=== PATIENT | male | born 1970 | race African-American/Black ===

== ENCOUNTER 2018-07-18 11:33 | Inpatient (IN) | payer OTHER ==
[~2018-07-18] VITALS: Ht 180.3 cm; Wt 78.0 kg
[2018-07-18] VITALS (14 sets, daily range): BP systolic 107–140
--- NOTE | 2018-07-18 11:33 | NUR ---
Placed in room 01 . Placed on quality assurance monitor final, blood pressure machine and pulse oximeter. To gown for exam. Side rails up.
--- NOTE | 2018-07-18 11:33 | NUR ---
BIB SQ 62 unable to obtain complete history due to SOB limited infomation obtained. Removed from cold wet clothes and warm blanket and gown provided. MD at bedside. Pt denies medical history but arrived with bag of medication. Will updated med rec and obtain complete history when patient improves or family arrives.
--- NOTE | 2018-07-18 11:34 | NUR ---
MAIK Cerna at bedside examining patient.
--- NOTE | 2018-07-18 11:38 | NUR ---
PT AAOx4 BIB ALS c/o acute onset SOB prior to arrival. Breathing tx given en route with no relief. RR 28, HR 130. Hx of lung ca. Pt c/o "feeling cold" on legs, denies numbness/tingling. Wet clothes removed, and warm blankets provided. No other injuries/complaints per pt/noted. Will continue to monitor.
[2018-07-18] MEDS ORDERED: IPRATROPIUM/ALBUTEROL SULFATE 3 ML AMPUL.NEB (DUONEB) INH ONE (11:45)
[2018-07-18] MEDS ORDERED: methylPREDNISolone SOD SUCC/PF 62.5 MG/ML VIAL IVP ONE (11:45)
[2018-07-18] MEDS ORDERED: NACL 0.9% 1,000 ML IV ONE (11:45)
--- NOTE | 2018-07-18 11:49 | NUR ---
Dr. Cerna reevaluating pt c/o right sided CP 10/11 order for Morphine obtained
--- NOTE | 2018-07-18 11:54 | NUR ---
Radiology at bedside for CXR
[2018-07-18] MEDS ORDERED: MORPHINE 4 MG/ML INJ. SYRINGE IVP ONE ×2 (12:00→12:30)
[2018-07-18 12:03] LABS: MEAN CORPUSCULAR HEMOGLOBIN 25 pg (27-31); MEAN CORPUSCULAR HGB CONC 32 % (32-36); MONOCYTES # (AUTO) 1.4 K/uL (0.0-1.0)
--- NOTE | 2018-07-18 12:04 | NUR ---
Morphine 4mg IVP administered. Pt tolerated well. No adverse reactions noted.
[2018-07-18 12:09] LABS: HEMOGLOBIN 12.3 g/dL (14.0-18.0); RED BLOOD CELL COUNT(AUTO) 4.92 MIL/uL (4.2-6.2); WHITE BLOOD COUNT (AUTO) 19.8 K/uL (4.8-10.8)
[2018-07-18 12:10] LABS: HEMATOCRIT 38.4 % (36-54); LYMPHOCYTES % (AUTO) 19.5 % (20.5-51.5); MEAN CORPUSCULAR VOLUME 78 fL (79.0-98.0); NEUTROPHILS % (AUTO) 70.8 % (40.0-70.0); PLATELET COUNT (AUTO) 359 K/uL (130-430); RED CELL DISTRIBUTION WIDTH 16.3 % (9.0-15.0)
--- NOTE | 2018-07-18 12:10 | NUR ---
PT PLACED ON BIPAP PER DR. RIBERA AT THIS TIME VIA SETTING IPAP 10, EPAP 5, BUR14, 50%FIO2. FOLLOW BY ABG IN 30MIN.
[2018-07-18 12:11] LABS: BASOPHILS # (AUTO) 0.1 K/uL (0.0-0.2); BASOPHILS % (AUTO) 0.6 % (0.0-2.0); EOSINOPHILS # (AUTO) 0.4 K/uL (0.0-0.4); EOSINOPHILS % (AUTO) 1.8 % (0.0-4.0); LYMPHOCYTES # (AUTO) 3.9 K/uL (1.0-5.5); MONOCYTES % (AUTO) 7.3 % (1.7-9.3); NEUTROPHILS # (AUTO) 14.1 K/uL (1.8-7.7)
--- NOTE | 2018-07-18 12:14 | NUR ---
Respiratory at bedside placing pt on BiPAP.
[2018-07-18] MEDS ORDERED: FERR140T2 PO (12:15)
[2018-07-18] MEDS ORDERED: PHEDM120 PO (12:15)
[2018-07-18] MEDS ORDERED: MORP15TA60 PO (12:15)
[2018-07-18] MEDS ORDERED: BECL10.62 IH (12:15)
[2018-07-18] MEDS ORDERED: FLUT16SP16 NS (12:15)
[2018-07-18] MEDS ORDERED: ALBMDI INH (12:15)
[2018-07-18] MEDS ORDERED: HYDR-3110 PO (12:15)
[2018-07-18] MEDS ORDERED: LOSA50TA3 PO (12:15)
[2018-07-18] MEDS ORDERED: PRED20TA PO (12:15)
[2018-07-18] MEDS ORDERED: ONDA4TAB5 PO (12:15)
[2018-07-18] MEDS ORDERED: IBUP-1971 PO (12:15)
[2018-07-18] MEDS ORDERED: MULT-1117 PO (12:15)
[2018-07-18] MEDS ORDERED: DOCU-144 PO (12:15)
[2018-07-18] MEDS ORDERED: MONT10TA25 PO (12:15)
[2018-07-18] MEDS ORDERED: BENZ-16 PO (12:15)
[2018-07-18] MEDS ORDERED: AUG875 PO (12:15)
--- NOTE | 2018-07-18 12:15 | NUR ---
Pt reports he is full code. Medication reconciliation completed with information provided by pt. Any prior medication reconciliation on file was reviewed and corrected.
--- NOTE | 2018-07-18 12:15 | NUR ---
Medication reconciliation completed with information provided by medication brought in by medics. Any prior medication reconciliation on file was reviewed and corrected.
--- NOTE | 2018-07-18 12:22 | NUR ---
Care endorsed to Zaida GREENBERG
[2018-07-18 12:26] LABS: CALCIUM 9.1 mg/dL (8.4-11.0); CREATININE 1.33 mg/dL (0.55-1.30); POTASSIUM 4.5 mmol/L (3.5-5.1)
[2018-07-18] MEDS ORDERED: PIPERACILLIN/TAZO 3.375 GM in NS 50 ML IV ONE (12:30)
[2018-07-18] MEDS ORDERED: BUDESONIDE 0.5 MG/2 ML AMPUL.NEB INH ONE (12:30)
[2018-07-18] MEDS ORDERED: VANCOMYCIN HCL 1,000 MG in NS 250 ML IV ONE (12:30)
[2018-07-18] MEDS ORDERED: FUROSEMIDE 40 MG/4 ML VIAL IVP ONE (12:30)
--- NOTE | 2018-07-18 12:30 | NUR ---
NS Fluids adminsitering at 125ml/hr per MD Cerna's order.
[2018-07-18 12:31] LABS: INR 1.3 (0.80-1.20); PROTHROMBIN TIME 12.9 SECS (9.5-12.5)
[2018-07-18 12:38] LABS: TOTAL BILIRUBIN 0.7 mg/dL (0.0-1.0)
[2018-07-18] MEDS ORDERED: PIPERACILLIN/TAZOBACTAM 3.375 GM/VIAL (ZOSYN) IV ONE (12:49)
[2018-07-18] MEDS ORDERED: VANCOMYCIN HCL 1000 MG/VIAL IV ONE (12:49)
[2018-07-18] MEDS ORDERED: NACL 0.9% 2,000 ML IV ONE (13:00)
--- NOTE | 2018-07-18 13:18 | NUR ---
ER Dr. Cerna at bedside updating patient and family
--- NOTE | 2018-07-18 13:26 | NUR ---
Patient will be admitted to [facility]. Admitted to ICU. Will go to room ICU 5. Summary report printed. Report will be given at bedside.
--- NOTE | 2018-07-18 14:05 | NUR ---
RN NOTE PATIENT WAS RECEIVED FROM ER, PATIENT WAS ASSESSED, VITAL SIGNS ARE STABLE. PATIENT DENIES PAIN OR DISCOMFORT. BED AT LOW POSITION, DR. RUIZ CAME TO SEE THE PATIENT, WILL CONTINUE TO MONITOR.
--- NOTE | 2018-07-18 16:00 | NUR ---
RN NOTE PATIENT RESTING ON BED, VITAL SIGNS ARE STABLE. PATIENT HAS BEEN BY DR. ISBELL, ORDERED CT FOR CHEST AND THORACENTESIS FOR TOMORROW. FLU ANTIBODY WILL BE SENT TO THE LAB WELL THE URINE SAMPLE, WILL CONTINUE TO MONITOR.
[2018-07-18 16:36] LABS: BILIRUBIN,URINE NEGATIVE (NEGATIVE); BLOOD, URINE NEGATIVE (NEGATIVE); CLARITY/URINE CLEAR (CLEAR); COLOR,URINE YELLOW (YELLOW); GLUCOSE,URINE NEGATIVE (NEGATIVE); KETONES,URINE NEGATIVE (NEGATIVE); LEUKOCYTE ESTERASE ,URINE NEGATIVE (NEGATIVE); NITRITE, URINE NEGATIVE (NEGATIVE); PROTEIN URINE NEGATIVE (NEGATIVE); UROBILINOGEN,URINE 0.2 (0.2-1.0)
[2018-07-18] MEDS ORDERED: DOCUSATE SODIUM 100 MG CAPSULE PO PRN (18:00)
[2018-07-18] MEDS ORDERED: POTASSIUM CHLORIDE 20 MEQ TAB.PRT.SR PO PRN (18:00)
[2018-07-18] MEDS ORDERED: MUPIROCIN 2% TOPICAL OINTMENT 22 GM NS PRN (18:00)
[2018-07-18] MEDS ORDERED: MAGNESIUM SULFATE 50 ML IV PRN (18:00)
[2018-07-18] MEDS ORDERED: ACETAMINOPHEN 325 MG TABLET PO PRN (18:00)
[2018-07-18] MEDS ORDERED: ZOLPIDEM TARTRATE 5 MG TABLET PO PRN (18:00)
[2018-07-18] MEDS ORDERED: LORazepam 2 MG/ML VIAL IVP PRN (18:00)
[2018-07-18] MEDS ORDERED: ONDANSETRON HCL 4 MG/2 ML VIAL IVP PRN (18:00)
--- NOTE | 2018-07-18 18:00 | NUR ---
RN CLOSING NOTE PATIENT IS RESTING ON BED, VITAL SIGNS ARE STABLE. PATIENT DENIES PAIN OR DISCOMFORT PATIENT'S FAMILY BY THE BEDSIDE, PATIENT WAS SERVED HIS DINNER, WILL CONTINUE TO MONITOR AND WILL ENDORSE TO NEXT SHIFT.
[2018-07-18] MEDS: PIPERACILLIN/TAZO 3.375/DEX-IS 50 ML IV SCH (18:49)
--- NOTE | 2018-07-18 18:55 | NUR ---
CALLED DR. PRICE FOR CONSULT. SPOKE TO LASHA.
--- NOTE | 2018-07-18 19:00 | NUR ---
DVT PROPHYLAXIS NOTE KARLA THE CHARGE NURSE CALLED DR. PRICE REGARDING THE TROPONIN LEVEL AND ASKED HIM IF WE CAN START THE PATIENT ON HEPARIN DRIP PER DR. ISBELL WHEN SHE ORDERED THE LE DOPPLER R/O DVT. SINCE THE REPORT IS NOT YET AVAILABLE. THEN KARLA ASKED DR. PRICE AND DR. PRICE SAID DON'T WORRY ABOUT IT, SINCE THE PATIENT HAS HEPARIN [address] PRICE ORDERED EKG AND TROPONIN IN AM, RAJ THE NIGHT RN WAS TOLD NOT TO CARRY THE HEPARIN DRIP ORDER PER DR. PRICE RECOMMENDATIONS.
[2018-07-18] MEDS: IPRATROPIUM/ALBUTEROL SULFATE 3 ML AMPUL.NEB (DUONEB) INH SCH (19:23)
[2018-07-18] MEDS: BUDESONIDE 0.5 MG/2 ML AMPUL.NEB INH SCH (19:23)
[2018-07-18] MEDS ORDERED: HEPARIN SODIUM,PORCINE 5000 UNITS/ML VIAL SUBCUT SCH (21:00)
[2018-07-18] MEDS ORDERED: BECLOMETHASONE DIPROPIONATE 10.6 GM IH SCH (21:00)
--- NOTE | 2018-07-18 21:01 | NUR ---
PATIENT AWAKE ALERT SITTING UP IN BED ON NASAL CANNULA 2 LPM 02 SAT 96 % CHEST MOVEMENT SHALLOW ALSO SYMMETRICAL SKIN DRY WARM ASSIST FOR POSITION CHANGE , COMFORT MEASURES IMPLEMENTED & TOLERATED .
[2018-07-18] MEDS: FLUTICASONE PROPIONATE 50 mCg/SPRAY 16 GM NS SCH (21:51)
[2018-07-18] MEDS: DOCUSATE SODIUM 100 MG CAPSULE PO SCH (21:52)
[2018-07-18] MEDS: MORPHINE 4 MG/ML INJ. SYRINGE IVP PRN (21:55)
--- NOTE | 2018-07-18 22:18 | NUR ---
MORPHINE SULFATE 2 MG IVP ADMINISTER FOR GENERAL PAIN 12/11 comfort measures implemented & helpful .
--- NOTE | 2018-07-18 22:58 | NUR ---
PATIENT AWAKE ALERT ASSIST WITH USE OF URINAL CLEAR YELLOW URINE NOTED , SAFETY MEASURES IN PLACE & EFFECTIVE .
[2018-07-19] VITALS (24 sets, daily range): BP systolic 107–138
[2018-07-19] MEDS: PIPERACILLIN/TAZO 3.375/DEX-IS 50 ML IV SCH ×5 (00:44→23:35)
[2018-07-19] MEDS: IPRATROPIUM/ALBUTEROL SULFATE 3 ML AMPUL.NEB (DUONEB) INH SCH ×4 (01:27→21:05)
--- NOTE | 2018-07-19 02:07 | NUR ---
ZOSYN 3.375 GM IVPB administer as ordered no adverse reaction noted skin rash free respirations regular also unlabored .
--- NOTE | 2018-07-19 04:22 | NUR ---
HEPARIN 5000 UNITS SUB Q. ADMINISTER ORDERED NO ADVERSE REACTION NOTED SKIN DRY WARM / .
[2018-07-19 06:57] LABS: CALCIUM 7.9 mg/dL (8.4-11.0); CREATININE 0.94 mg/dL (0.55-1.30); POTASSIUM 4.6 mmol/L (3.5-5.1)
[2018-07-19 06:58] LABS: EOSINOPHILS % (AUTO) 0.1 % (0.0-4.0); HEMATOCRIT 31.8 % (36-54); HEMOGLOBIN 10.3 g/dL (14.0-18.0); LYMPHOCYTES # (AUTO) 1.3 K/uL (1.0-5.5); LYMPHOCYTES % (AUTO) 6.8 % (20.5-51.5); MEAN CORPUSCULAR HEMOGLOBIN 25 pg (27-31); MEAN CORPUSCULAR HGB CONC 32 % (32-36); MEAN CORPUSCULAR VOLUME 76 fL (79.0-98.0); MONOCYTES # (AUTO) 0.9 K/uL (0.0-1.0); MONOCYTES % (AUTO) 4.5 % (1.7-9.3); NEUTROPHILS # (AUTO) 17.1 K/uL (1.8-7.7); NEUTROPHILS % (AUTO) 88.6 % (40.0-70.0); PLATELET COUNT (AUTO) 315 K/uL (130-430); RED BLOOD CELL COUNT(AUTO) 4.17 MIL/uL (4.2-6.2); RED CELL DISTRIBUTION WIDTH 15.7 % (9.0-15.0); WHITE BLOOD COUNT (AUTO) 19.3 K/uL (4.8-10.8)
[2018-07-19 07:06] LABS: ALBUMIN 1.5 g/dL (3.4-4.8); TOTAL BILIRUBIN 0.4 mg/dL (0.0-1.0)
[2018-07-19] MEDS: BUDESONIDE 0.5 MG/2 ML AMPUL.NEB INH SCH ×2 (07:25→21:05)
--- NOTE | 2018-07-19 07:25 | NUR ---
Opening Note Received bedside report from Rikki GREENBERG for continuation of care. Received patient alert in bed, no signs or symptoms of distress visualized. Bed locked in lowest position, bed alarm on, and call light within reach.
--- NOTE | 2018-07-19 07:45 | NUR ---
Dr. Seals at bedside examining patient. No new orders.
[2018-07-19] MEDS ORDERED: *LOVENOX 1MG/KG Q12H/PHARMACY XX ONE (08:30)
[2018-07-19] MEDS ORDERED: LIDOCAINE 1%, 20 ML MDV 0 ML ONE (08:58)
[2018-07-19] MEDS ORDERED: ENOXAPARIN SODIUM 40 MG/0.4 ML SYRINGE SUBCUT SCH (09:00)
--- NOTE | 2018-07-19 09:00 | NUR ---
MD ROUNDS: DR. RUIZ PATIENT SEEN AND EXAMINED BY DR. RUIZ, WITH ORDERS CARRIED OUT. RE: SEPSIS NO FLUIDS DUE TO PLEURAL EFFUSION. PATIENT WILL HAVE ULTRASOUND GUIDED THORACENTESIS.
--- NOTE | 2018-07-19 09:15 | NUR ---
Dr. Barajas and Dr. Beltran at bedside examining patient and updating on plan of care. New orders received and carried out.
[2018-07-19] MEDS: FLUTICASONE PROPIONATE 50 mCg/SPRAY 16 GM NS SCH ×2 (10:15→22:14)
[2018-07-19] MEDS: DOCUSATE SODIUM 100 MG CAPSULE PO SCH ×2 (10:15→20:45)
[2018-07-19] MEDS: MORPHINE 4 MG/ML INJ. SYRINGE IVP PRN ×3 (10:21→20:43)
[2018-07-19] MEDS: FERROUS SULFATE 140 MG TABLET.ER PO SCH (11:51)
[2018-07-19] MEDS: ENOXAPARIN SODIUM 80 MG/0.8 ML SYRINGE SUBCUT SCH ×2 (11:52→22:15)
--- NOTE | 2018-07-19 12:59 | NUR ---
Dietitian Recommendations Continue Reg diet as prescribed Please refer to nutrition assessment for details. RH, CAMMIE
[2018-07-19 14:29] LABS: SOURCE/TYPE ,BODY FLUID PLEURAL
[2018-07-19 14:30] LABS: BF APPEARANCE UNSPUN BLOODY (CLEAR); BODY FLUID COLOR AMBER (LT YELLOW)
[2018-07-19 14:31] LABS: BODY FLUID TOTAL VOLUME 2500 mL; EOSINOPHIL, BODY FLUID 0 %; LYMPHOCYTES, BODY FLUID 9 %; MONOCYTES,BODY FLUID 2 %; NEUTROPHIL, BODY FLUID 89 %; RBC, BODY FLUID 9011 /uL; WBC, BODY FLUID 2066 /uL
--- NOTE | 2018-07-19 16:00 | NUR ---
Patient taken for CT scan via bed gurney on acrobatic rigger and oxygen using ACLS protocol, with ACLS RN. Patient tolerated well.
--- NOTE | 2018-07-19 16:15 | NUR ---
Patient back from CT scan via bed gurcotopaxi on rn cardiac rehab and oxygen using ACLS protocol, with ACLS RN. Patient tolerated well.
[2018-07-19] MEDS: MONTELUKAST 10 MG TABLET PO SCH (17:30)
--- NOTE | 2018-07-19 18:35 | NUR ---
Thoracentesis Dr. Bucio at bedside performing ultrasound guided thoracentesis indicated for left pleural effusion. Thoracentesis yielded approximately 1150 cc of bloody fluid. Patient tolerated well. Addendum: 07/19/18 at 1840 by Clara Ambrocio RN This was performed approximately at 0930, not 1835.
--- NOTE | 2018-07-19 19:15 | NUR ---
Endorsement Endorsed bedside report to Aaron RN using SBAR approach for continuation of care.
--- NOTE | 2018-07-19 19:15 | NUR ---
Initial Assessment Received patient in bed, awake alert oriented x4 , with family at bedside. No distress noted with 2L n/c. IV noted to R a/c G 20 no infiltrate and with good blood return. All extremities are strong, ambulates to bathroom. Will cont to monitor.
--- NOTE | 2018-07-19 21:30 | NUR ---
Patient ie resting Patient is resting comfortably talking with his brother. No s/s of any distress noted. Call light in reach , will cont to monitor.
[2018-07-19] MEDS ORDERED: ENOXAPARIN SODIUM 100 MG/ML SYRINGE ONE (22:21)
--- NOTE | 2018-07-19 23:45 | NUR ---
Patient is resting comfortably Patient is reting comfortably with both eyes close at this time. No s/s of any distress noted with 4L via n/c. Will cont to monitor.
[2018-07-20] VITALS (15 sets, daily range): BP systolic 119–134
[2018-07-20] MEDS: IPRATROPIUM/ALBUTEROL SULFATE 3 ML AMPUL.NEB (DUONEB) INH SCH ×4 (01:17→19:27)
--- NOTE | 2018-07-20 02:30 | NUR ---
Patient is resting comfortably well Assisted to commode and safely back to bed. Patient went back to sleep. Will cont to monitor.
--- NOTE | 2018-07-20 05:00 | NUR ---
CHG bath Assisted patient with CHG bath. Tolerated well. Will cont to monitor.
[2018-07-20] MEDS: PIPERACILLIN/TAZO 3.375/DEX-IS 50 ML IV SCH ×4 (05:14→23:25)
[2018-07-20 06:16] LABS: HEMATOCRIT 33.6 % (36-54); HEMOGLOBIN 10.7 g/dL (14.0-18.0); MEAN CORPUSCULAR HEMOGLOBIN 25 pg (27-31); MEAN CORPUSCULAR HGB CONC 32 % (32-36); MEAN CORPUSCULAR VOLUME 77 fL (79.0-98.0); PLATELET COUNT (AUTO) 332 K/uL (130-430); RED BLOOD CELL COUNT(AUTO) 4.35 MIL/uL (4.2-6.2); RED CELL DISTRIBUTION WIDTH 15.5 % (9.0-15.0); WHITE BLOOD COUNT (AUTO) 14.8 K/uL (4.8-10.8)
[2018-07-20] MEDS: MORPHINE 4 MG/ML INJ. SYRINGE IVP PRN ×3 (06:16→21:09)
[2018-07-20 06:28] LABS: ATYPICAL LYMPHOCYTES % 0 % (0-0); BAND % (MANUAL) 0 % (0-6); BASOPHILS % (MANUAL) 0 % (0-2); EOSINOPHILS % (MANUAL) 3 % (0-7); LYMPHOCYTES % (MANUAL) 9 % (20-46); METAMYELOCYTES % 0 % (0-0); MONOCYTES % (MANUAL) 4 % (0-11); MYELOCYTES % 1 % (0-0)
--- NOTE | 2018-07-20 06:52 | NUR ---
Final Notes Patient is resting comfortably with eyes close at this time. No s/s of any distress noted with 02 @ 2L via n/c . All needs met and anticipated by staff. Call light in reach, bed alarm on and side rails up x3 for safety. Will endorse care to incoming nurse.
[2018-07-20 06:54] LABS: ALBUMIN 1.6 g/dL (3.4-4.8); BILIRUBIN,DIRECT 0.2 mg/dL (0.0-0.3); CALCIUM 8.3 mg/dL (8.4-11.0); CREATININE 1.14 mg/dL (0.55-1.30); POTASSIUM 4.1 mmol/L (3.5-5.1); TOTAL BILIRUBIN 0.4 mg/dL (0.0-1.0)
--- NOTE | 2018-07-20 07:10 | NUR ---
OPENING NOTE; Received SBAR report and plan of care from night RN
[2018-07-20] MEDS: BUDESONIDE 0.5 MG/2 ML AMPUL.NEB INH SCH ×2 (07:18→19:40)
[2018-07-20] MEDS: FERROUS SULFATE 140 MG TABLET.ER PO SCH (09:00)
[2018-07-20] MEDS: DOCUSATE SODIUM 100 MG CAPSULE PO SCH ×2 (09:09→21:09)
[2018-07-20] MEDS: FLUTICASONE PROPIONATE 50 mCg/SPRAY 16 GM NS SCH ×2 (09:09→21:09)
[2018-07-20] MEDS: ENOXAPARIN SODIUM 80 MG/0.8 ML SYRINGE SUBCUT SCH ×2 (09:10→21:13)
--- NOTE | 2018-07-20 10:40 | NUR ---
TRANSFER TO [facility]: Transferred patient to [facility] via continuous portable monitoring of vital sign, gave bedside SBAR report and plan of care to [facility] nurse, placed patient in bed 119B, patient tolerated well, no signs of distress noted.
--- NOTE | 2018-07-20 11:00 | NUR ---
Notes assumed care, received from ICU awake, alert and oriented.denies any pain at this time. ON room air, o2 sat at 96%. IVL. Has shortness upon exertion. Sinus tach at 107. oriented to environment. provided urinal. call light within reach. Enc. to call for help as needed. pt verbalize understnding.
--- NOTE | 2018-07-20 15:00 | NUR ---
Notes- Resting in bed, he complains of shortness of breath when he coughs and wants oxygen. O2 sat is 95% in RA. Oxygen provided at bedside as needed. no acute distress noted.
--- NOTE | 2018-07-20 16:56 | NUR ---
MD ROUNDS Seen by Dr. Keita at bedside.
[2018-07-20] MEDS: MONTELUKAST 10 MG TABLET PO SCH (18:05)
--- NOTE | 2018-07-20 18:39 | NUR ---
closing notes In bed eating dinner. complain of pain on his anterior chest, arms and back. medicated with morphine. No acute distress noted. needs attended, will endorse
--- NOTE | 2018-07-20 19:15 | NUR ---
OPENING NOTE Late entry due to patient care. Bedside report received from daysmoft nurse. Patient received lying in bed, talking with family members present at bedside. No s/s of acute distress noted. Breathing is even and unlabored. Nasal canula attached properly, on 2L of oxygen. HOB raised. Urinal present at bedside. IV antibiotic infusing well. Call light with patient, instructed to call for any assistance, patient verbalized understanding. Bed alarm is on. Bed is locked and at lowest position. Will continue to monitor.
--- NOTE | 2018-07-20 21:09 | NUR ---
PAIN Patient complained of 6/10 abdominal pain. Morphine administered per PRN order. Will continue to monitor and reassess.
--- NOTE | 2018-07-20 23:00 | NUR ---
ROUNDS Patient in bed, eyes closed, appears to be asleep. No s/s of acute distress noted. Breathing even and unlabored. HOB raised. Nasal canula attached properly, on 2L of oxygen. Call light with patient. Will continue to monitor.
[2018-07-21 00:21] VITALS: BP_SYST 125
[2018-07-21] MEDS: IPRATROPIUM/ALBUTEROL SULFATE 3 ML AMPUL.NEB (DUONEB) INH SCH ×4 (00:34→20:00)
--- NOTE | 2018-07-21 01:00 | NUR ---
ROUNDS Patient in bed sleeping at this time. No s/s of acute distress noted. Breathing even and unlabored. HOB raised. Nasal canula attached properly. Call light with patient. Will continue to monitor.
--- NOTE | 2018-07-21 03:00 | NUR ---
ROUNDS Patient in bed sleeping. No s/s of acute distress noted. Breathing even and unlabored. HOB raised, nasal canula attached properly, on 2L oxygen. Call light with patient. Will continue to monitor.
[2018-07-21] MEDS: PIPERACILLIN/TAZO 3.375/DEX-IS 50 ML IV SCH ×4 (05:07→23:27)
[2018-07-21] MEDS: MORPHINE 4 MG/ML INJ. SYRINGE IVP PRN ×3 (05:11→19:29)
--- NOTE | 2018-07-21 05:30 | NUR ---
DR ROOT AT BEDSIDE/PAIN Dr Root at bedside assessing the patient. Patient complained of 8/10 pain, morphine administered per PRN order. Will continue to monitor and reassess.
[2018-07-21 06:53] LABS: BASOPHILS % (AUTO) 0.2 % (0.0-2.0); EOSINOPHILS # (AUTO) 0.3 K/uL (0.0-0.4); EOSINOPHILS % (AUTO) 2.7 % (0.0-4.0); HEMATOCRIT 29.3 % (36-54); HEMOGLOBIN 9.4 g/dL (14.0-18.0); LYMPHOCYTES # (AUTO) 1.9 K/uL (1.0-5.5); LYMPHOCYTES % (AUTO) 14.3 % (20.5-51.5); MEAN CORPUSCULAR HEMOGLOBIN 25 pg (27-31); MEAN CORPUSCULAR HGB CONC 32 % (32-36); MEAN CORPUSCULAR VOLUME 77 fL (79.0-98.0); MONOCYTES % (AUTO) 8.1 % (1.7-9.3); NEUTROPHILS # (AUTO) 9.8 K/uL (1.8-7.7); NEUTROPHILS % (AUTO) 74.7 % (40.0-70.0); PLATELET COUNT (AUTO) 317 K/uL (130-430); RED BLOOD CELL COUNT(AUTO) 3.79 MIL/uL (4.2-6.2); RED CELL DISTRIBUTION WIDTH 15.4 % (9.0-15.0)
--- NOTE | 2018-07-21 06:57 | NUR ---
CLOSING NOTE Patient in bed sleeping at this time. No s/s of acute distress noted. Breathing even and unlabored. Nasal canula attached properly, on 2L of oxygen. HOB raised. IV site patent. All needs met at this time. Fall and safety precautions maintained throughout shift. Will continue to monitor until patient care until dayshift nurse arrives.
[2018-07-21 07:13] LABS: CALCIUM 7.7 mg/dL (8.4-11.0); CREATININE 0.89 mg/dL (0.55-1.30)
[2018-07-21 07:45] VITALS: BP_SYST 137
--- NOTE | 2018-07-21 07:52 | NUR ---
OPENING NOTES, RECEIVED PT IN BED, PT IS AAO, DENIES PAIN, NO SOB, NO RESP DISTRESS. SALINE LOCK ON R. AC IS INTACT AND PATENT. NO S/S OF INFILTRATION, NO SWELLING. PT IS AFEBRILE. VITALS WNL. PLAN OF CARE DISCUSSED WITH PT. SAFETY PRECAUTION IN PLACE. CALL LIGHT IN REACH, BED IN LOW POSITION. PT ENCOURAGED TO CALL FOR ASSIST AND PAIN MEDS OR ANY CONCERNS. WILL CONT TO MONITOR.
[2018-07-21] MEDS: BUDESONIDE 0.5 MG/2 ML AMPUL.NEB INH SCH ×2 (07:57→20:12)
[2018-07-21] MEDS: FERROUS SULFATE 140 MG TABLET.ER PO SCH (09:17)
[2018-07-21] MEDS: DOCUSATE SODIUM 100 MG CAPSULE PO SCH ×2 (09:17→21:03)
[2018-07-21] MEDS: FLUTICASONE PROPIONATE 50 mCg/SPRAY 16 GM NS SCH ×2 (09:17→21:03)
[2018-07-21] MEDS: ENOXAPARIN SODIUM 80 MG/0.8 ML SYRINGE SUBCUT SCH ×2 (09:20→21:12)
--- NOTE | 2018-07-21 10:00 | NUR ---
PT IN BED, NO C/O PAIN, NO SOB, NO DISTRESS. PT APPEARS COMFORTABLE. CALL LIGHT IN REACH, BED IN LOW POSITION. WILL CONT TO MONITOR.
[2018-07-21 10:16] VITALS: BP_SYST 137
--- NOTE | 2018-07-21 11:01 | NUR ---
SEEN PT WALKING WITH Diana GILBERT. PER P.T. IS IS AMBULATORY AND OKAY TO WALK.
[2018-07-21 11:12] VITALS: BP_SYST 128
--- NOTE | 2018-07-21 14:27 | NUR ---
PT GIVEN PAIN MEDICATION REQUESTED.
[2018-07-21 15:19] VITALS: BP_SYST 121
[2018-07-21] MEDS: MONTELUKAST 10 MG TABLET PO SCH (17:18)
--- NOTE | 2018-07-21 17:20 | NUR ---
PT AWAKEN FOR PM. MEDS, NO C/O PAIN, NO N/V. CALL LIGHT IN REACH. WILL CONT TO MONITOR.
--- NOTE | 2018-07-21 18:46 | NUR ---
CLOSING NOTES, PT HAS BEEN STABLE THE WHOLE SHIFT, NO C/O OF SOB, NO RESP DISTRESS, C/O PAIN AND WAS GIVEN PAIN MEDS REQUESTED WITH GOOD PAIN CONTROL. IV ABX GIVEN. IV ACCESS REMAINED INTACT AND PATENT. PT USES THE URINAL. WILL ENDORSE TO NIGHT RN.
--- NOTE | 2018-07-21 19:05 | NUR ---
OPENING NOTE Bedside report received from dayshift nurse. Patient received AOx4, in bed, eating dinner. Patient complained of 7/10 pain. Morphine to be administered per PRN order. Breathing is even and unlabored. HOB raised. IV site patent, no signs of infiltration or infection noted. Call light with patient, instructed to call for assistance when needed, patient verbalized understanding. Bed alarm off per patient's request. Bed is locked and at lowest position. Will continue to monitor.
[2018-07-21 20:00] VITALS: BP_SYST 124
--- NOTE | 2018-07-21 21:00 | NUR ---
MEDPASS Medpass done at this time. Patient tolerated well. No signs of discomfort noted. Chest rise and fall even bilaterally. HOB raised. Call light with patient. Will continue to monitor.
--- NOTE | 2018-07-21 23:00 | NUR ---
ROUNDS Patient in bed sleeping at this time. No s/s of acute distress noted. Breathing is even and unlabored. Call light with patient. Bed locked and at lowest position. Will continue to monitor.
[2018-07-22 00:03] VITALS: BP_SYST 141
[2018-07-22] MEDS: IPRATROPIUM/ALBUTEROL SULFATE 3 ML AMPUL.NEB (DUONEB) INH SCH ×4 (01:00→20:12)
--- NOTE | 2018-07-22 01:00 | NUR ---
ROUNDS Patient sleeping. No signs of discomfort noted. Chest rise and fall even bilaterally. Call light with patient. Will continue to monitor.
--- NOTE | 2018-07-22 03:00 | NUR ---
ROUNDS Patient in bed sleeping at this time. No s/s of acute distress noted. Breathing even and unlabored. Call light with patient. Will continue to monitor.
--- NOTE | 2018-07-22 05:00 | NUR ---
IV ANTIBIOTIC HUNG IV antibiotic hung at this time, infusing well. IV site patent, no signs of infiltration or infection noted. No signs of discomfort noted. Chest rise and fall even bilaterally. Call light with patient. Will continue to monitor.
[2018-07-22] MEDS: PIPERACILLIN/TAZO 3.375/DEX-IS 50 ML IV SCH ×3 (05:11→17:28)
[2018-07-22] MEDS: MORPHINE 4 MG/ML INJ. SYRINGE IVP PRN ×4 (05:59→22:06)
--- NOTE | 2018-07-22 06:38 | NUR ---
CLOSING NOTE Patient in bed sleeping at this time. No s/s of acute distress noted. Breathing even and unlabored. IV site patent. No signs of infiltration or infection noted. HOB raised. All needs met throughout shift. Fall and safety precautions maintained throughout shift. Will continue to monitor until patient care is endorsed to oncoming dayshift nurse.
--- NOTE | 2018-07-22 06:45 | NUR ---
Nutrition Update Rai Scale 18 noted. Pt admitted for acute respiratory failure Diet: regular diet BMI: 24 kg/m2 RD to follow per nutrition care standards.
[2018-07-22 07:08] LABS: BASOPHILS % (AUTO) 0.3 % (0.0-2.0); EOSINOPHILS # (AUTO) 0.2 K/uL (0.0-0.4); EOSINOPHILS % (AUTO) 1.9 % (0.0-4.0); HEMOGLOBIN 9.9 g/dL (14.0-18.0); LYMPHOCYTES # (AUTO) 1.6 K/uL (1.0-5.5); LYMPHOCYTES % (AUTO) 12.1 % (20.5-51.5); MEAN CORPUSCULAR HEMOGLOBIN 25 pg (27-31); MEAN CORPUSCULAR HGB CONC 33 % (32-36); MEAN CORPUSCULAR VOLUME 76 fL (79.0-98.0); MONOCYTES % (AUTO) 7.4 % (1.7-9.3); NEUTROPHILS # (AUTO) 10.1 K/uL (1.8-7.7); NEUTROPHILS % (AUTO) 78.3 % (40.0-70.0); PLATELET COUNT (AUTO) 321 K/uL (130-430); RED BLOOD CELL COUNT(AUTO) 3.95 MIL/uL (4.2-6.2); RED CELL DISTRIBUTION WIDTH 15.1 % (9.0-15.0); WHITE BLOOD COUNT (AUTO) 12.9 K/uL (4.8-10.8)
[2018-07-22] MEDS: BUDESONIDE 0.5 MG/2 ML AMPUL.NEB INH SCH ×2 (07:34→20:24)
[2018-07-22 07:39] LABS: CREATININE 0.93 mg/dL (0.55-1.30); POTASSIUM 3.9 mmol/L (3.5-5.1)
[2018-07-22 08:03] VITALS: BP_SYST 129
--- NOTE | 2018-07-22 08:05 | NUR ---
AM note patient resting in bed, a/ox4, denies pain, assessment complete, patient is receiving a breathing treatment at this time, tolerating well, IV line is patent and infusing well, educated on plan of care and call light system and to call for any assistance, he verbalized understanding, bed in lowest position, two side rails up, call light within reach, fall and aspiration precautions in place.
[2018-07-22 08:14] LABS: CALCIUM 7.9 mg/dL (8.4-11.0)
[2018-07-22] MEDS: FERROUS SULFATE 140 MG TABLET.ER PO SCH (09:04)
[2018-07-22] MEDS: DOCUSATE SODIUM 100 MG CAPSULE PO SCH ×2 (09:04→22:05)
[2018-07-22] MEDS: FLUTICASONE PROPIONATE 50 mCg/SPRAY 16 GM NS SCH ×2 (09:05→22:09)
--- NOTE | 2018-07-22 09:05 | NUR ---
Medications patient resting in bed, awake, denies pain, educated on morning medications uses and potential side effects, patient verbalized understanding and tolerated well, no other needs at this time, bed in lowest position, two side rails up, call light within reach, fall and aspiration precautions in place, continuing to monitor.
--- NOTE | 2018-07-22 09:21 | NUR ---
Dr. Barajas rounds assessed patient at bedside, will follow up with any new orders.
[2018-07-22] MEDS: ENOXAPARIN SODIUM 80 MG/0.8 ML SYRINGE SUBCUT SCH (10:00)
--- NOTE | 2018-07-22 10:52 | NUR ---
Dr. Ruby pierce informed that Lovenox was not given this morning, ok to proceed with Thoracentesis.
--- NOTE | 2018-07-22 12:11 | NUR ---
RN rounds/IV antibiotic patient resting in bed, awake, denies pain, denies shortness of breath, educated on IV antibiotic uses and potential side effects, he verbalized understanding, IV line is patent and infusing well, no s/s of infiltration. Asked patient to fill out medical request forms again for MD, patient will fill it out, will follow up PRN.
--- NOTE | 2018-07-22 12:23 | NUR ---
Paged Dr. Beltran to clarify if ok to proceed with Thoracentesis if patient received Lovenox last night. Dr. Beltran call back - clarify with Radiology.
--- NOTE | 2018-07-22 12:29 | NUR ---
Called Radiology informed that patient received Lovenox last night but not this morning, okay to proceed with Thoracentesis as ordered. Addendum: 07/22/18 at 1610 by Riaz Fox RN Follow up on Thoracentesis, spoke with Reva Radiologist gone for the day, will proceed tomorrow.
[2018-07-22 13:13] VITALS: BP_SYST 135
--- NOTE | 2018-07-22 15:47 | NUR ---
RN rounds patient calling at this time due to pain, no IV line available at this time, offered patient Tylenol or if he can wait for a new IV line, patient elected to wait at this time, continuing to monitor, will paged MD if required for orders, bed in lowest position, two side rails up, call light within reach, fall and aspiration precautions in place.
[2018-07-22 16:30] VITALS: BP_SYST 112
--- NOTE | 2018-07-22 16:32 | NUR ---
Pain medication patient resting in bed, awake, educated patient on pain medication uses and potential side effects, he verbalized understanding, IV line is patent and infusing well, call light placed within reach, fall and aspiration precautions in place, continuing to monitor.
--- NOTE | 2018-07-22 16:32 | NUR ---
IV RE-INSERTION: Complaining of pain to IV site. Restarted on right ac 20g. Successful after 4 attempts. Inserted by Angela GREENBERG. Will observe for any signs of infiltration.
[2018-07-22] MEDS: MONTELUKAST 10 MG TABLET PO SCH (17:28)
--- NOTE | 2018-07-22 17:39 | NUR ---
RN rounds/medication patient resting in bed, awake, states pain has improved, educated on medications uses and potential side effects, he verbalized understanding and tolerated well, IV line is patent and infusing well, continuing to monitor, no other needs at this time, bed in lowest position, two side rails up, call light within reach, fall and aspiration precautions in place.
--- NOTE | 2018-07-22 18:57 | NUR ---
Closing note patient resting in bed, denies pain, denies shortness of breath, all needs met, patient asking for a shaver, none available at this time, bed in lowest position, two side rails up, call light within reach, fall and aspiration precautions in place.
[2018-07-22 20:15] VITALS: BP_SYST 127
--- NOTE | 2018-07-22 22:25 | NUR ---
MORPHINE SULFATE 2 MG IVP ADMINISTER FOR ACUTE GENERAL PAIN 12/11 & HELPFUL .
--- NOTE | 2018-07-23 | NUR ---
PATIENT NPO THIS HOUR FOR AM PROCEDURE , ALERT & AWARE .
--- NOTE | 2018-07-23 00:21 | NUR ---
ULTRASOUND GUIDED THORACENTESIS SCHEDULE FOR TODAY , PATIENT ALERT & AWARE .
--- NOTE | 2018-07-23 00:24 | NUR ---
SAFETY MEASURES PATIENT AWAKE CALL BEL WITH PATIENT , VERBALLY INDICATIVE SKIN DRY WARM 02 SAT 96 % 2 LITERS ON NASAL CANNULA .
[2018-07-23 00:26] VITALS: BP_SYST 129
[2018-07-23] MEDS: IPRATROPIUM/ALBUTEROL SULFATE 3 ML AMPUL.NEB (DUONEB) INH SCH ×4 (01:00→20:36)
[2018-07-23] MEDS: MORPHINE 4 MG/ML INJ. SYRINGE IVP PRN ×4 (01:05→16:38)
[2018-07-23] MEDS: PIPERACILLIN/TAZO 3.375/DEX-IS 50 ML IV SCH ×5 (01:32→23:41)
--- NOTE | 2018-07-23 02:00 | NUR ---
PATIENT RESTING HOB ELEVATED CALL SYSTEM WITH PATIENT CHEST MOVEMENT SYMMETRICAL .
[2018-07-23 04:15] LABS: % FREE PSA 18.9 % (.); FREE PSA 0.53 ng/mL; PROSTATE SPECIFIC AG TOTAL 2.8 ng/mL (0.0-4.0)
[2018-07-23 04:30] VITALS: BP_SYST 125
--- NOTE | 2018-07-23 05:32 | NUR ---
MORPHINE SULFATE 2 MG IVP ADMINISTER FOR GENERAL PAIN 12/11 & HELPFUL .
[2018-07-23 07:11] LABS: CALCIUM 7.8 mg/dL (8.4-11.0); CREATININE 0.94 mg/dL (0.55-1.30); POTASSIUM 4.1 mmol/L (3.5-5.1)
[2018-07-23 07:33] LABS: BASOPHILS % (AUTO) 0.2 % (0.0-2.0); EOSINOPHILS # (AUTO) 0.2 K/uL (0.0-0.4); EOSINOPHILS % (AUTO) 1.6 % (0.0-4.0); HEMATOCRIT 30.9 % (36-54); LYMPHOCYTES # (AUTO) 1.6 K/uL (1.0-5.5); LYMPHOCYTES % (AUTO) 10.4 % (20.5-51.5); MEAN CORPUSCULAR HEMOGLOBIN 25 pg (27-31); MEAN CORPUSCULAR HGB CONC 32 % (32-36); MEAN CORPUSCULAR VOLUME 76 fL (79.0-98.0); MONOCYTES # (AUTO) 1.1 K/uL (0.0-1.0); MONOCYTES % (AUTO) 7.2 % (1.7-9.3); NEUTROPHILS # (AUTO) 12.4 K/uL (1.8-7.7); NEUTROPHILS % (AUTO) 80.6 % (40.0-70.0); PLATELET COUNT (AUTO) 316 K/uL (130-430); RED BLOOD CELL COUNT(AUTO) 4.04 MIL/uL (4.2-6.2); RED CELL DISTRIBUTION WIDTH 15.5 % (9.0-15.0); WHITE BLOOD COUNT (AUTO) 15.3 K/uL (4.8-10.8)
[2018-07-23] MEDS: BUDESONIDE 0.5 MG/2 ML AMPUL.NEB INH SCH ×2 (07:42→20:46)
--- NOTE | 2018-07-23 08:25 | NUR ---
AM note patient resting in bed, a/ox4, denies pain, assessment complete, IV line is patent and infusing well, educated on plan of care and call light system and to call for any assistance, he verbalized understanding, bed in lowest position, two side rails up, call light within reach, fall and aspiration precautions in place.
[2018-07-23 08:28] VITALS: BP_SYST 119
[2018-07-23] MEDS: DOCUSATE SODIUM 100 MG CAPSULE PO SCH ×2 (08:37→21:00)
[2018-07-23] MEDS: FLUTICASONE PROPIONATE 50 mCg/SPRAY 16 GM NS SCH ×2 (08:38→22:18)
[2018-07-23] MEDS: FERROUS SULFATE 140 MG TABLET.ER PO SCH (08:38)
--- NOTE | 2018-07-23 08:40 | NUR ---
Medications patient resting in bed, awake, denies pain, educated on morning medications uses and potential side effects, patient verbalized understanding and tolerated well, provided with ice water, bed in lowest position, two side rails up, call light within reach, fall and aspiration precautions in place, continuing to monitor.
--- NOTE | 2018-07-23 10:19 | NUR ---
Ultrasound at bedside preparing for Thoracentesis.
--- NOTE | 2018-07-23 10:52 | NUR ---
Thoracentesis/Pain medication Radiologist at bedside, performed Thoracentesis, patient is having a lot of pain with procedure, educated on pain medication uses and potential side effcts, he verbalized understanding, IV line patent and infusing well, assisted with positioning patient for Thoracentesis, he is tolerating well at this time, continuing to monitor.
--- NOTE | 2018-07-23 11:27 | NUR ---
Rounds/Medication patient resting in bed, states pain is improved at this time, educated on IV antibiotic uses and potential side effects, he verbalized understanding at this time, IV line is patent and infusing well, patient requesting ice cream, called Dietary to place on lunch tray, bed in lowest position, two side rails up, call light within reach, fall and aspiration precautions in place, continuing to monitor.
--- NOTE | 2018-07-23 13:46 | NUR ---
RN rounds patient resting in bed, awake, denies pain, finishing lunch at this time, no other needs at this time, bed in lowest position, two side rails up, call light within reach, fall and aspiration precautions in place, continuing to monitor.
--- NOTE | 2018-07-23 14:14 | NUR ---
Dr. Beltran rounds assessed patient at bedside, okay to send specimen for cytology, pending orders and will send to lab.
[2018-07-23] MEDS ORDERED: ENOXAPARIN SODIUM 80 MG/0.8 ML SYRINGE SQ ONE (14:45)
[2018-07-23] MEDS: MONTELUKAST 10 MG TABLET PO SCH (17:40)
--- NOTE | 2018-07-23 17:40 | NUR ---
RN rounds/medication patient changed rooms, stable condition, educated on medications uses and potential side effects, he verbalized understanding and tolerated well, IV line is patent and infusing well, no other needs at this time, bed in lowest position, two side rails up, call light placed within reach, fall and aspiration precautions in place.
--- NOTE | 2018-07-23 18:45 | NUR ---
Closing note patient resting in bed, awake, denies pain, all needs met, will endorse report to NOC shift nurse, bed in lowest position, two side rails up, call light within reach, fall and aspiration precautions in place.
--- NOTE | 2018-07-23 19:15 | NUR ---
Bedside report was received from day shift nurse. Pt is fully AAO x4. No c/o pain or discomfort at this time. No respiratory distress noted. Family members are visiting at the bedside. Saline lock in LAC is without any signs of infiltration. Fall and safety precautions are in place. Call light is with pt and bed is in the lowest and locked positions. Pt was instructed to call for assistance as needed and pt verbalized understanding.
[2018-07-23 20:00] VITALS: BP_SYST 128
[2018-07-23] MEDS: ENOXAPARIN SODIUM 80 MG/0.8 ML SYRINGE SQ SCH (21:00)
--- NOTE | 2018-07-23 21:00 | NUR ---
Pt is resting quietly in bed. Fall and safety precautions are in place.
--- NOTE | 2018-07-23 23:00 | NUR ---
Pt is resting in bed with HOB up and O2 on at 2L/min per NC. No c/o pain or discomfort at this time. Fall and safety precautions are in place.
[2018-07-24] VITALS: BP_SYST 126
[2018-07-24] MEDS: IPRATROPIUM/ALBUTEROL SULFATE 3 ML AMPUL.NEB (DUONEB) INH SCH ×4 (01:00→20:35)
--- NOTE | 2018-07-24 01:00 | NUR ---
Pt is sleeping and no respiratory distress noted. Fall and safety precautions are in place.
--- NOTE | 2018-07-24 03:00 | NUR ---
Pt is sleeping. No acute distress noted. Pt has O2 on at 2L/min via NC. Fall and safety precautions are in place.
--- NOTE | 2018-07-24 05:00 | NUR ---
Pt noted to be sleeping without any resp distress.
[2018-07-24] MEDS: PIPERACILLIN/TAZO 3.375/DEX-IS 50 ML IV SCH ×4 (06:05→23:59)
--- NOTE | 2018-07-24 06:50 | NUR ---
Pt is awake and not in any distress. All pt's needs were attended to. Will endorse to day shift nurse.
[2018-07-24 06:57] LABS: CALCIUM 7.8 mg/dL (8.4-11.0); CREATININE 1.03 mg/dL (0.55-1.30); POTASSIUM 4.1 mmol/L (3.5-5.1)
[2018-07-24] MEDS: BUDESONIDE 0.5 MG/2 ML AMPUL.NEB INH SCH (07:00)
[2018-07-24 07:26] LABS: BASOPHILS # (AUTO) 0.1 K/uL (0.0-0.2); BASOPHILS % (AUTO) 0.4 % (0.0-2.0); EOSINOPHILS # (AUTO) 0.2 K/uL (0.0-0.4); EOSINOPHILS % (AUTO) 1.4 % (0.0-4.0); HEMOGLOBIN 10.3 g/dL (14.0-18.0); LYMPHOCYTES # (AUTO) 1.5 K/uL (1.0-5.5); LYMPHOCYTES % (AUTO) 8.9 % (20.5-51.5); MEAN CORPUSCULAR HEMOGLOBIN 26 pg (27-31); MEAN CORPUSCULAR HGB CONC 33 % (32-36); MEAN CORPUSCULAR VOLUME 78 fL (79.0-98.0); MONOCYTES # (AUTO) 1.3 K/uL (0.0-1.0); MONOCYTES % (AUTO) 7.7 % (1.7-9.3); NEUTROPHILS # (AUTO) 14.2 K/uL (1.8-7.7); NEUTROPHILS % (AUTO) 81.6 % (40.0-70.0); PLATELET COUNT (AUTO) 294 K/uL (130-430); RED BLOOD CELL COUNT(AUTO) 3.98 MIL/uL (4.2-6.2); RED CELL DISTRIBUTION WIDTH 15.7 % (9.0-15.0); WHITE BLOOD COUNT (AUTO) 17.3 K/uL (4.8-10.8)
[2018-07-24 08:00] VITALS: BP_SYST 109
--- NOTE | 2018-07-24 08:00 | NUR ---
OPENING NOTE: RECEIVED REPORT FROM NIGHT NURSE. PATIENT IS RESTING COMFORTABLY IN BED. NO S/S OF DISTRESS OR SOB. PATIENT IS ALERT AND ORIENTED. PATIENT ON 2 L NASAL CANNULA. IV IS PATENT AND SALINE LOCKED. VITAL SIGNS UPDATED ON FLOW SHEET. CALL LIGHT IN REACH, BED IN LOWEST POSITION, AND WILL CONTINUE TO MONITOR.
[2018-07-24] MEDS: DOCUSATE SODIUM 100 MG CAPSULE PO SCH ×2 (09:00→22:00)
[2018-07-24] MEDS: FLUTICASONE PROPIONATE 50 mCg/SPRAY 16 GM NS SCH ×2 (09:24→22:06)
[2018-07-24] MEDS: FERROUS SULFATE 140 MG TABLET.ER PO SCH (09:26)
[2018-07-24] MEDS: ENOXAPARIN SODIUM 80 MG/0.8 ML SYRINGE SQ SCH ×2 (09:26→22:01)
[2018-07-24] MEDS: MORPHINE 4 MG/ML INJ. SYRINGE IVP PRN ×3 (09:27→17:53)
--- NOTE | 2018-07-24 09:57 | NUR ---
PAIN MEDICATION ADMINISTERED. PATIENT EDUCATED ON MEDICATION SIDE EFFECTS AND INSTRUCTED ON USING CALL LIGHT TO CALL FOR ASSISTANCE. PATIENT VERBALIZED UNDERSTANDING. WILL CONTINUE TO MONITOR.
--- NOTE | 2018-07-24 11:32 | NUR ---
PATIENT BEING TAKEN TO CT FOR LIVER BIOPSY
[2018-07-24 11:55] VITALS: BP_SYST 110
[2018-07-24] MEDS ORDERED: LIDOCAINE 1%, 20 ML MDV 20 ML ONE (12:09)
--- NOTE | 2018-07-24 12:22 | NUR ---
PATIENT BACK FROM CT
--- NOTE | 2018-07-24 13:32 | NUR ---
PAIN MEDICATION ADMINISTERED. PATIENT EDUCATED ON MEDICATION SIDE EFFECTS AND INSTRUCTED ON USING CALL LIGHT TO CALL FOR ASSISTANCE. PATIENT VERBALIZED UNDERSTANDING. WILL CONTINUE TO MONITOR.
[2018-07-24 16:57] VITALS: BP_SYST 118
[2018-07-24] MEDS: MONTELUKAST 10 MG TABLET PO SCH (17:52)
--- NOTE | 2018-07-24 17:53 | NUR ---
PAIN MEDICATION ADMINISTERED. PATIENT EDUCATED ON MEDICATION SIDE EFFECTS AND INSTRUCTED ON USING CALL LIGHT TO CALL FOR ASSISTANCE. PATIENT VERBALIZED UNDERSTANDING. WILL CONTINUE TO MONITOR.
--- NOTE | 2018-07-24 18:10 | NUR ---
CLOSING NOTE: PATIENT IS RESTING COMFORTABLY IN BED. NO S/S OF DISTRESS OR SOB. FAMILY IS AT BEDSIDE. ALL NEEDS MET DURING SHIFT. CALL LIGHT IN REACH, BED IN LOWEST POSITION, AND WILL GIVE REPORT TO NIGHT NURSE.
--- NOTE | 2018-07-24 19:15 | NUR ---
Pt was received sitting up in bed eating dinner. Pt is fully AAO x4. No c/o pain or discomfort at this time. O2 is on at 2L/min per NC and no respiratory distress noted. Saline lock in LAC is without any signs of infiltration. Fall and safety precautions are in place. Call light is with pt and bed is in the lowest and locked positions. Pt was instructed to call for assistance as needed and pt verbalized understanding.
[2018-07-24 20:00] VITALS: BP_SYST 114
--- NOTE | 2018-07-24 22:00 | NUR ---
Pt is resting quietly in bed. No c/o pain or discomfort. Fall and safety precautions are in place. Family members are visiting at his bedside.
[2018-07-24 23:00] VITALS: BP_SYST 122
--- NOTE | 2018-07-25 | NUR ---
Pt is resting quietly in bed. IV Zosyn started and infusing well. Pt denies pain or discomfort. Fall and safety precautions are in place.
[2018-07-25] MEDS: IPRATROPIUM/ALBUTEROL SULFATE 3 ML AMPUL.NEB (DUONEB) INH SCH ×3 (01:27→21:06)
--- NOTE | 2018-07-25 02:00 | NUR ---
Pt is sleeping without any distress noted. Call light is with pt and bed alarm is on.
--- NOTE | 2018-07-25 04:00 | NUR ---
Pt is sleeping. No acute distress noted. Pt has O2 on at 2L/min via NC. Fall and safety precautions are in place.
[2018-07-25 05:56] LABS: WHITE BLOOD COUNT (AUTO) 16.4 K/uL (4.8-10.8)
[2018-07-25 05:57] LABS: HEMATOCRIT 28.8 % (36-54); HEMOGLOBIN 9.3 g/dL (14.0-18.0); MEAN CORPUSCULAR HEMOGLOBIN 25 pg (27-31); MEAN CORPUSCULAR HGB CONC 32 % (32-36); MEAN CORPUSCULAR VOLUME 77 fL (79.0-98.0); PLATELET COUNT (AUTO) 256 K/uL (130-430); RED BLOOD CELL COUNT(AUTO) 3.74 MIL/uL (4.2-6.2); RED CELL DISTRIBUTION WIDTH 17.7 % (9.0-15.0)
[2018-07-25 05:59] LABS: BASOPHILS % (AUTO) 0.6 % (0.0-2.0); CALCIUM 7.6 mg/dL (8.4-11.0); CHLORIDE 101 mmol/L (98-107); CREATININE 1.02 mg/dL (0.55-1.30); EOSINOPHILS % (AUTO) 1.3 % (0.0-4.0); GLUCOSE 101 mg/dL (70-99); LYMPHOCYTES % (AUTO) 11.1 % (20.5-51.5); MONOCYTES % (AUTO) 8.6 % (1.7-9.3); NEUTROPHILS % (AUTO) 78.4 % (40.0-70.0); POTASSIUM 3.8 mmol/L (3.5-5.1); SODIUM SERUM 133 mmol/L (136-145); UREA NITROGEN, BLOOD 10 mg/dL (8-21)
[2018-07-25 06:00] LABS: BASOPHILS # (AUTO) 0.1 K/uL (0.0-0.2); EOSINOPHILS # (AUTO) 0.2 K/uL (0.0-0.4); LYMPHOCYTES # (AUTO) 1.8 K/uL (1.0-5.5); MONOCYTES # (AUTO) 1.4 K/uL (0.0-1.0); NEUTROPHILS # (AUTO) 12.8 K/uL (1.8-7.7)
[2018-07-25 06:09] LABS: GFR AFRICAN AMERICAN 100 mL/min (>90)
[2018-07-25 06:10] LABS: ANION GAP < 3 (5-15)
[2018-07-25] MEDS: MORPHINE 4 MG/ML INJ. SYRINGE IVP PRN ×2 (06:14→18:28)
--- NOTE | 2018-07-25 06:14 | NUR ---
Morphine 2mg was given IV for c/o right upper abdominal pain. Call light is with pt and bed alarm is on.
--- NOTE | 2018-07-25 06:44 | NUR ---
Pt is resting in bed. No c/o pain or discomfort. All pt's needs were attended to. Will endorse to day shift nurse.
--- NOTE | 2018-07-25 07:10 | NUR ---
Opening note patient resting in bed, awake and alert, stated pain is better at this time, breathing symmetrical at this time, IV site patent, no other needs at this time, educated patient on use of call light for asssistance, verbalized understanding, call light and bedside table left within reach, will continue to monitor patient
[2018-07-25] MEDS: FERROUS SULFATE 140 MG TABLET.ER PO SCH (08:16)
[2018-07-25] MEDS: DOCUSATE SODIUM 100 MG CAPSULE PO SCH ×2 (08:16→21:07)
[2018-07-25] MEDS: FLUTICASONE PROPIONATE 50 mCg/SPRAY 16 GM NS SCH ×2 (08:16→21:07)
[2018-07-25] MEDS: ENOXAPARIN SODIUM 80 MG/0.8 ML SYRINGE SQ SCH ×2 (08:18→21:09)
--- NOTE | 2018-07-25 08:25 | NUR ---
Medication Administration educated patient regarding meds, verbalized understanding, tolerated well, denies pain at this time, breathing unlabored and symmetrical, educated patient on plan of care, verbalized understanding, no other needs at this time, educated patient on use of call light for asssistance, verbalized understanding, call light and bedside table left within reach, will continue to monitor patient
[2018-07-25 08:26] VITALS: BP_SYST 118
--- NOTE | 2018-07-25 11:07 | NUR ---
Dr. Barajas Rounds/PleurX Consult rounded, wants PleurX catheter placement, spoke with Dr. Moody MARTINEZ in radiology and he stated he does not perform procedure and surgical consult must be placed, Dr. Barajas notified at station and placed order for Dr. Chakraborty, will await MD to call/round
--- NOTE | 2018-07-25 13:02 | NUR ---
Assisted Patient to Ambulate Around Unit at this time, steady gait, breathing unlabored and symmetrical, denied dizziness or weakness, he was assisted back to room, educated patient on use of call light for assistance, verbalized understanding, call light and bedside table left within reach, will continue to monitor
[2018-07-25 13:03] VITALS: BP_SYST 120
--- NOTE | 2018-07-25 15:47 | NUR ---
CONSULTATION PAGED/CALLED Reason for Consultation: PleurX Catheter Placement Person Who was Notified: Cass Consulting Physician: Dr. Chakraborty Human Anatomy Teacher Specialty: Surgeon Ordering Physician: Karl
--- NOTE | 2018-07-25 16:18 | NUR ---
Nutrition F/U Admitting Diagnosis Acute Resp Failure Reviewed Pertinent Medical/Surgical Hx Medical Record Patient Medical History Comment: (Per Er doc) HTN, Lung CA (recently Diagnosed), Elevated troponin, Acute Hypoxic Resp fail, Sepsis, Pneumonia, Pleural Effusion 07/25 Note: Left lower extremity superficial venous thrombosis, Left malignant pleural effusion, Sepsis, Aspiration pneumonia, Type 2 myocardial infarction, Acute hypoxemic respiratory failure, Severe malnutrition, Lung cancer with bony mets Subjective Information Pt seen resting in bed with full, uneaten tray at the bedside. Pt reported that his appetite has increased and also requested more vegetables, especially spinach. Pt reported no N/V, no issues w/ chewing/swallowing, and one BM today in the afternoon. Per EMR, I/O: 817ml/350ml, +467 ml. PO intake 72% x3 meals on 07/24. Current Diet Order/Nutrition Support Regular x7 Days Patient/Significant Other Able To Verbalize Education Provided Not Indicated Pertinent Medications Lovenox, Slow Fe, Colace, Morphine Pertinent Labs Alb 1.6 L, Alk Phos 352 H, ALT 486 H, AST 321 H, Ca 7.6 L, BG 101 H Height (Feet) 5 feet Height (Inches) 11.00 inches Weight (Pounds) 172 pounds Weight (Calculated Kilograms) 78.052862 kilograms Patient Weight 78.018 kg Body Mass Index 23.99 kg/m2 Usual Weight 200 lbs %UBW 86 %IBW 100 [place]/Adjusted Body Weight 172 lbs, 78 kg Recent Weight Change Yes - (Per pt:) Lost 25-30 Lbs (~6.7% Body wt) over the last 3 months Weight Status Appropriate Gastrointestinal Symptoms None Last BM Jul 25, 2018 Food Allergies No Cultural/Ethnic/Zoroastrianism Belief None noted. Usual Diet At Home Regular Skin Integrity Comment: Rai score 19. Current % PO Good (75-100%) Estimated Energy Expenditure (kcals/day) 5091-4949 kcal/day (25-30 kcal/kg IBW for wt maintenance) Estimated Protein Required (g/day) 78-101 gm Pro/day (1-1.3 gm/kg for wt maintenance) Estimated Fluid Required (l/day) 2 - 2.3 L/day (25-30 ml/kg IBW for maintenance) Nutritional Problem No Nutritional Problem Expected Outcomes/Goals Maintain PO intake >75%, Labs trending WNL, Normal GI function and skin integrity / wt maintenance. Dietitian Recommendations Continue Reg diet as prescribed. Follow Up Low Risk: F/U in 7 days Signed: 07/25/18 at 1618 by Lynn OLSON <Co-Signature Required> Co-Signed: 07/25/18 at [address]
--- NOTE | 2018-07-25 16:23 | NUR ---
Spoke with Dr. Chakraborty over the phone, gave report about patient and need for PleurX catheter, MD verbalized understanding, stated to keep patient NPO at the mean time until he rounds tonight, updated patient regarding plan of care, verbalized understanding, will wait MD rounds
[2018-07-25 16:57] VITALS: BP_SYST 121
[2018-07-25] MEDS: MONTELUKAST 10 MG TABLET PO SCH (18:00)
--- NOTE | 2018-07-25 18:45 | NUR ---
Closing Note patient resting in bed, awake and alert, he was medicated for pain, breathing unlabored on room air, symmetrical chest expansion, IV site remains patent, no other needs at this time, educated patient on use of call light for assistance, verbalized understanding, call light and bedside table left within reach, will endorse to cnc machinist 2nd shift nurse
[2018-07-25 19:00] VITALS: BP_SYST 130
--- NOTE | 2018-07-25 19:34 | NUR ---
Dr. Palmer Larson stated still waiting on patient's decision for surgery, stated patient can eat tonight, NPO after midnight tomorrow just in case
[2018-07-25 20:00] VITALS: BP_SYST 130
--- NOTE | 2018-07-25 20:41 | NUR ---
PAGED PAGING DR. PFEIFFER.
[2018-07-26] VITALS: BP_SYST 112
[2018-07-26] MEDS: IPRATROPIUM/ALBUTEROL SULFATE 3 ML AMPUL.NEB (DUONEB) INH SCH ×4 (02:17→20:24)
[2018-07-26] MEDS: MORPHINE 4 MG/ML INJ. SYRINGE IVP PRN ×4 (06:23→21:41)
[2018-07-26 06:48] LABS: CALCIUM 7.7 mg/dL (8.4-11.0); CREATININE 0.88 mg/dL (0.55-1.30)
[2018-07-26 07:10] LABS: HEMOGLOBIN 9.3 g/dL (14.0-18.0); RED BLOOD CELL COUNT(AUTO) 3.64 MIL/uL (4.2-6.2); WHITE BLOOD COUNT (AUTO) 14.1 K/uL (4.8-10.8)
[2018-07-26 07:11] LABS: BASOPHILS % (AUTO) 0.9 % (0.0-2.0); EOSINOPHILS % (AUTO) 1.1 % (0.0-4.0); HEMATOCRIT 28.2 % (36-54); LYMPHOCYTES # (AUTO) 1.6 K/uL (1.0-5.5); LYMPHOCYTES % (AUTO) 11.6 % (20.5-51.5); MEAN CORPUSCULAR HEMOGLOBIN 26 pg (27-31); MEAN CORPUSCULAR HGB CONC 33 % (32-36); MEAN CORPUSCULAR VOLUME 77 fL (79.0-98.0); MONOCYTES # (AUTO) 1.3 K/uL (0.0-1.0); MONOCYTES % (AUTO) 9.3 % (1.7-9.3); NEUTROPHILS # (AUTO) 10.8 K/uL (1.8-7.7); NEUTROPHILS % (AUTO) 77.1 % (40.0-70.0); PLATELET COUNT (AUTO) 289 K/uL (130-430); RED CELL DISTRIBUTION WIDTH 17.3 % (9.0-15.0)
[2018-07-26 07:12] LABS: BASOPHILS # (AUTO) 0.1 K/uL (0.0-0.2); EOSINOPHILS # (AUTO) 0.2 K/uL (0.0-0.4)
--- NOTE | 2018-07-26 07:15 | NUR ---
Opening Note patient resting in bed, awake and alert, no complaints of pain, breathing symmetrical at this time, educated patient on use of call light for assistance, verbalized understanding, call light and bedside table left within reach, will continue to monitor patient
[2018-07-26] MEDS: DOCUSATE SODIUM 100 MG CAPSULE PO SCH ×2 (09:00→21:34)
[2018-07-26] MEDS: FLUTICASONE PROPIONATE 50 mCg/SPRAY 16 GM NS SCH ×2 (09:48→21:34)
[2018-07-26] MEDS: FERROUS SULFATE 140 MG TABLET.ER PO SCH (09:48)
[2018-07-26] MEDS: ENOXAPARIN SODIUM 80 MG/0.8 ML SYRINGE SQ SCH ×2 (09:49→21:36)
[2018-07-26 10:03] VITALS: BP_SYST 120
--- NOTE | 2018-07-26 10:05 | NUR ---
Medication Administration educated patient regarding meds, verbalized understanding, tolerated well, refused colace at this time, educated him on risks of not taking med, verbalized understanding, still refused, no other needs at this time, educated patient on use of call light for assistance, verbalized understanding, call light and bedside table left within reach, will continue to monitor patient
--- NOTE | 2018-07-26 10:08 | NUR ---
Dr. Barajas Rounds at this time
--- NOTE | 2018-07-26 13:35 | NUR ---
Pain Meds given at this time per protocol. educated patient regarding med, verbalized understanding, tolerated well, IV site remains patent, he is about to receive breathing treatment at this time, educated patient on use of call light for assistance, verbalized understanding, call light and bedside table left within reach, will continue to monitor patient
[2018-07-26 13:36] VITALS: BP_SYST 113
--- NOTE | 2018-07-26 15:23 | NUR ---
Kranthi at Bedside/Paged Dr. Karl Fonge at bedside, requesting information about patient, asked patient if she could get information about patient, patient stated his brother is person to notify and niece does not need access to information, niece verbalized understanding, paged Dr. Barajas for cough medicine per patient request
[2018-07-26 16:45] VITALS: BP_SYST 143
[2018-07-26] MEDS: MONTELUKAST 10 MG TABLET PO SCH (17:18)
[2018-07-26] MEDS: BENZONATATE 100 MG CAPSULE (TESSALON) PO PRN (17:18)
--- NOTE | 2018-07-26 17:24 | NUR ---
Cough Med given at this time, educated patient regarding med, verbalized understanding, tolerated well, no other needs at this time, educated patient on use of call light for assistance, verbalized understanding, will continue to monitor
--- NOTE | 2018-07-26 19:08 | NUR ---
Closing Note patient resting in bed, HOB elevated, denies pain, breathing unlabored and symmetrical, safety precautions remain in place, call light and bedside table left within reach, endorsed to shift nurse manager nurse
--- NOTE | 2018-07-26 21:25 | NUR ---
OPENING NOTES RECEIVED PATIENT IN BED AAO X4. BREATHING UNLABORED ON ROOM AIR. DENIES PAIN AT THIS TIME. PLAN OF CARE REVIEWED WITH PATIENT. CALL LIGHT WITHIN REACH. BED IN LOWEST LOCKED POSITION. Addendum: 07/26/18 at 2127 by Hoa Cohen RN WRONG TIME - DONE 1909
[2018-07-26 21:32] VITALS: BP_SYST 135
--- NOTE | 2018-07-26 21:41 | NUR ---
PAIN MGT PATIENT MEDICATED WITH MORPHING ORDERED FOR C/O 8/10 LT LOWER RIB PAIN TO BACK SPECIALLY ON COUGHING. VITAL SIGNS STABLE. ALL DUE MEDICATION S GIVEN AND TOLERATED.
[2018-07-27] MEDS: IPRATROPIUM/ALBUTEROL SULFATE 3 ML AMPUL.NEB (DUONEB) INH SCH ×4 (00:09→20:07)
[2018-07-27] MEDS: BENZONATATE 100 MG CAPSULE (TESSALON) PO PRN ×2 (00:42→11:10)
--- NOTE | 2018-07-27 00:42 | NUR ---
COUGH COUGH MEDICINE GIVEN PER PATIENT REQUEST. VITAL SIGNS STABLE. CALL LIGHT WITH IN REACH.
[2018-07-27 00:43] VITALS: BP_SYST 119
[2018-07-27 02:22] VITALS: BP_SYST 119
--- NOTE | 2018-07-27 03:30 | NUR ---
ROUNDS PATIENT RESTING IN BED. NO DISTRESS NOTED. CALL LIGHT WITH IN REACH. BED ALARM ON.
[2018-07-27] MEDS: MORPHINE 4 MG/ML INJ. SYRINGE IVP PRN ×4 (05:21→22:23)
--- NOTE | 2018-07-27 05:21 | NUR ---
PAIN MGT PATIENT MEDICATED WITH MORPHINE FOR C/O LT RIB CAGE TO BACK PAIN 01/11. PATIENT INSTRUCTED TO OBSERVE FALL/SAFETY PRECAUTIONS.
[2018-07-27 06:21] LABS: CALCIUM 7.8 mg/dL (8.4-11.0); CREATININE 0.96 mg/dL (0.55-1.30); POTASSIUM 3.6 mmol/L (3.5-5.1)
[2018-07-27 06:25] LABS: WHITE BLOOD COUNT (AUTO) 13.6 K/uL (4.8-10.8)
--- NOTE | 2018-07-27 06:25 | NUR ---
CLOSING NOTES PATIENT RESTING IN BED. BREATHING UNLABORED AT THIS TIME. LT AC IV LINE INTACT. PATIENT NEEDS ATTENDED. CALL LIGHT WITH IN REACH. BED IN LOWEST LOCKED POSITION.
[2018-07-27 06:26] LABS: BASOPHILS # (AUTO) 0.1 K/uL (0.0-0.2); BASOPHILS % (AUTO) 0.5 % (0.0-2.0); EOSINOPHILS # (AUTO) 0.2 K/uL (0.0-0.4); EOSINOPHILS % (AUTO) 1.6 % (0.0-4.0); HEMATOCRIT 28.3 % (36-54); HEMOGLOBIN 9.3 g/dL (14.0-18.0); LYMPHOCYTES # (AUTO) 1.6 K/uL (1.0-5.5); LYMPHOCYTES % (AUTO) 11.9 % (20.5-51.5); MEAN CORPUSCULAR HEMOGLOBIN 26 pg (27-31); MEAN CORPUSCULAR HGB CONC 33 % (32-36); MEAN CORPUSCULAR VOLUME 77 fL (79.0-98.0); MONOCYTES # (AUTO) 1.4 K/uL (0.0-1.0); NEUTROPHILS # (AUTO) 10.3 K/uL (1.8-7.7); PLATELET COUNT (AUTO) 267 K/uL (130-430); RED BLOOD CELL COUNT(AUTO) 3.66 MIL/uL (4.2-6.2); RED CELL DISTRIBUTION WIDTH 16.7 % (9.0-15.0)
[2018-07-27 07:30] VITALS: BP_SYST 112
--- NOTE | 2018-07-27 07:30 | NUR ---
INITIAL ROUNDS Received pt AAOx4, no s/s resp distress, no c/o shortness of breath, no c/o pain or discomfort. Plan of care for the day reviewed with pt-pt verbalized his understanding. Pain management, skin and safety discussed-teach back done. Call light within reach.
[2018-07-27 07:45] VITALS: BP_SYST 112
[2018-07-27] MEDS: DOCUSATE SODIUM 100 MG CAPSULE PO SCH ×2 (08:59→21:11)
[2018-07-27] MEDS: FERROUS SULFATE 140 MG TABLET.ER PO SCH (09:00)
[2018-07-27] MEDS: FLUTICASONE PROPIONATE 50 mCg/SPRAY 16 GM NS SCH ×2 (09:00→21:11)
[2018-07-27] MEDS: ENOXAPARIN SODIUM 80 MG/0.8 ML SYRINGE SQ SCH ×2 (09:01→21:13)
--- NOTE | 2018-07-27 09:05 | NUR ---
MD VISIT P t seen by Dr. Wilson. No s/s resp distress, no c/o pain or discomfort. Pt encouraged to eat his breakfast-pt stated he will. Call light within reach
--- NOTE | 2018-07-27 12:05 | NUR ---
ROUNDS Pt with no further c/o pain, no cough at this time, no s/s resp distress. Needs met, call light within reach.
[2018-07-27] MEDS ORDERED: MORPHINE 4 MG/ML INJ. SYRINGE IVP PRN (15:00)
[2018-07-27] MEDS ORDERED: ZOLPIDEM TARTRATE 5 MG TABLET PO PRN (15:00)
[2018-07-27] MEDS ORDERED: LORazepam 2 MG/ML VIAL IVP PRN (15:00)
[2018-07-27 16:05] VITALS: BP_SYST 115
--- NOTE | 2018-07-27 16:05 | NUR ---
ROUNDS Pt resting quietly in bed with no s/s resp distress, no c/o pain or discomfort. Needs met, call light within reach.
[2018-07-27] MEDS: MONTELUKAST 10 MG TABLET PO SCH (17:58)
--- NOTE | 2018-07-27 18:26 | NUR ---
CLOSING NOTE Pt resting quietly in bed with no s/s resp distress, no c/o shortness of breath, c/o pain now 07/14. Pt encouraged to eat his dinner-pt stated "in a while". Needs met, call light within reach.
[2018-07-27 20:35] VITALS: BP_SYST 119
--- NOTE | 2018-07-27 23:05 | NUR ---
MORPHINE SULFATE 2 MG IVP ADMINISTER FOR GENERAL PAIN 12/11 & HELPFUL , RESTING THIS HOUR .
[2018-07-28] VITALS: BP_SYST 117
--- NOTE | 2018-07-28 | NUR ---
SAFETY FALL MEASURES IMPLEMENTED PATIENT AWAKE ON AND OFF VERBALLY RESPONSIVE CALL ESPINOSA WITH PATIENT / .
[2018-07-28] MEDS: IPRATROPIUM/ALBUTEROL SULFATE 3 ML AMPUL.NEB (DUONEB) INH SCH ×3 (01:19→13:28)
--- NOTE | 2018-07-28 01:27 | NUR ---
HOURLY ROUNDING PATIENT RESTING HOB ELEVATED ON ROOM AIR 02 SAT 97 % SKIN DRY WARM ASSIST ENCOURAGE POSITION CHANGE TOLERATED .
--- NOTE | 2018-07-28 02:19 | NUR ---
LOVENOX 80 MG SUB Q. administer as ordered no s/sx of bleeding noted verbally responsive assist as needed .
[2018-07-28 04:55] VITALS: BP_SYST 119
--- NOTE | 2018-07-28 04:59 | NUR ---
FALL MEASURES EFFECTIVE PATIENT RESTING , CALL ESPINOSA WITH PATIENT HOB ELEVATED RESPIRATIONS REGULAR ALSO UNLABORED .
[2018-07-28] MEDS: MORPHINE 4 MG/ML INJ. SYRINGE IVP PRN ×2 (06:36→11:54)
[2018-07-28 07:30] VITALS: BP_SYST 118
--- NOTE | 2018-07-28 07:30 | NUR ---
INITIAL ROUNDS Received pt AAOx4, no s/s resp distress, no c/o shortness of breath, c/o pain [id number] pain medication at 063. Plan of care for the day reviewed with pt-pt verbalized his understanding. Pain management, disease process, skin and safety discussed-teach back done. Call light within reach.
[2018-07-28] MEDS: DOCUSATE SODIUM 100 MG CAPSULE PO SCH ×2 (09:00→09:20)
[2018-07-28] MEDS: FERROUS SULFATE 140 MG TABLET.ER PO SCH (09:20)
[2018-07-28] MEDS: FLUTICASONE PROPIONATE 50 mCg/SPRAY 16 GM NS SCH (09:20)
[2018-07-28] MEDS: ENOXAPARIN SODIUM 80 MG/0.8 ML SYRINGE SQ SCH (09:21)
--- NOTE | 2018-07-28 09:25 | NUR ---
RICK/ Pt sitting up in bed with no c/o shortness of breath, no c/o pain or discomfort. Pt seen by DR. Barajas and DR. Wilson-DANYELL home orders given. Pt given DR. Lyons's office number per request. Pt stated his brother will pick him up later-right now he is in denominational. Needs met, call light within reach.
[2018-07-28 10:03] LABS: BASOPHILS # (AUTO) 0.1 K/uL (0.0-0.2); BASOPHILS % (AUTO) 1.1 % (0.0-2.0); EOSINOPHILS # (AUTO) 0.3 K/uL (0.0-0.4); EOSINOPHILS % (AUTO) 2.1 % (0.0-4.0); HEMATOCRIT 31.3 % (36-54); HEMOGLOBIN 10.2 g/dL (14.0-18.0); LYMPHOCYTES # (AUTO) 1.8 K/uL (1.0-5.5); LYMPHOCYTES % (AUTO) 14.3 % (20.5-51.5); MEAN CORPUSCULAR HEMOGLOBIN 25 pg (27-31); MEAN CORPUSCULAR HGB CONC 32 % (32-36); MEAN CORPUSCULAR VOLUME 78 fL (79.0-98.0); MONOCYTES # (AUTO) 1.1 K/uL (0.0-1.0); MONOCYTES % (AUTO) 8.7 % (1.7-9.3); NEUTROPHILS # (AUTO) 9.4 K/uL (1.8-7.7); NEUTROPHILS % (AUTO) 73.8 % (40.0-70.0); RED BLOOD CELL COUNT(AUTO) 4.02 MIL/uL (4.2-6.2); RED CELL DISTRIBUTION WIDTH 18.3 % (9.0-15.0); WHITE BLOOD COUNT (AUTO) 12.8 K/uL (4.8-10.8)
[2018-07-28 10:28] LABS: CALCIUM 8.1 mg/dL (8.4-11.0); CREATININE 0.83 mg/dL (0.55-1.30); POTASSIUM 4.1 mmol/L (3.5-5.1)
--- NOTE | 2018-07-28 11:59 | NUR ---
ROUNDS/PAIN Pt with no c/o shortness of breath, no s/s resp distress. Pt c/o pain 01/11 to left chest area-pt given Morphine as ordered. Light turned down low, curtain pulled to promote rest. Pt stated he is still waiting for his brother to call him back, not sure of picking supervisor time yet. Needs met, call light within reach.
[2018-07-28 12:48] VITALS: BP_SYST 123
[2018-07-28 12:58] LABS: PLATELET COUNT (AUTO) 290 K/uL (130-430)
[2018-07-28] MEDS: BENZONATATE 100 MG CAPSULE (TESSALON) PO PRN (13:28)
--- NOTE | 2018-07-28 13:53 | NUR ---
PATIENT DISCHARGED Patient given medication reconciliation form and D/C instructions. Exit Care explained & provided to patient. Patient verbalized his understanding. MD discussed with patient the results and treatment provided. Ambulatory with steady gait for discharge to home. Patient in stable condition, ID band removed. IV catheter removed, intact and dressing applied, no active bleeding. Rx of Xarelto and Morphine Sustained Release tablets eplained and given to patient. Patient educated on pain management. All belongings sent with patient. Patient left floor with his brother Ananth, ambulatory to [facility] in no distress.
--- NOTE | 2018-07-29 14:06 | NUR ---
DISCHARGE FOLLOW UP PHONE CALL: SHOE LAY OUT PLANNER phoned pt @ [phone]. Per pt he is doing "alright". Pt was able to fill new medication and he does not have questions/concerns about the medication instructions that were given. Pt stated he does not have a PCP but was able to make an appointment with an Oncologist, Dr. Romeo from [facility] on 08/01. SHOE LAY OUT PLANNER encouraged pt to bring new medication/s, discharge instructions and medical records to MD appointment; pt agreed. SHOE LAY OUT PLANNER encouraged pt to call insurance to obtain a PCP list in his area for follow up care. Pt stated his mother will drive him to/from MD appointments. No further renal social worker follow up phone call needed.
== END 2018-07-28 13:53 | disposition home or self-care (01) | DRG 720 ==
LOC: SED 11:33 → SIC 13:04 → SMU 07-20 10:50 → STU 07-20 12:00 → SMU 07-28 09:17
PROVIDERS: ADMIT General Practice; ATTEND General Practice
PROC: 5A09357 Assistance with Respiratory Ventilation, Less than 24 Consecutive Hours, Continuous Positive Airway Pressure (ICD-10-PCS; principal; 2018-07-18)
PROC: 0W9B3ZZ Drainage of Left Pleural Cavity, Percutaneous Approach (ICD-10-PCS; 2018-07-19)
PROC: 0W9B3ZZ Drainage of Left Pleural Cavity, Percutaneous Approach (ICD-10-PCS; 2018-07-23)
PROC: 0FB13ZX Excision of Right Lobe Liver, Percutaneous Approach, Diagnostic (ICD-10-PCS; 2018-07-24)
DX: A41.9 Sepsis, unspecified organism (principal); I21.A1 Myocardial infarction type 2; J96.01 Acute respiratory failure with hypoxia; J69.0 Pneumonitis due to inhalation of food and vomit; E43 Unspecified severe protein-calorie malnutrition; C78.7 Secondary malignant neoplasm of liver and intrahepatic bile duct; E66.01 Morbid (severe) obesity due to excess calories; C79.51 Secondary malignant neoplasm of bone; E87.1 Hypo-osmolality and hyponatremia; D64.9 Anemia, unspecified; R74.0 Nonspecific elevation of levels of transaminase and lactic acid dehydrogenase [LDH]; G89.29 Other chronic pain; R59.0 Localized enlarged lymph nodes; N17.9 Acute kidney failure, unspecified; I10 Essential (primary) hypertension; J91.0 Malignant pleural effusion; I82.402 Acute embolism and thrombosis of unspecified deep veins of left lower extremity; Z82.3 Family history of stroke; Z85.118 Personal history of other malignant neoplasm of bronchus and lung; Z68.24 Body mass index [BMI] 24.0-24.9, adult; Z79.899 Other long term (current) drug therapy
CPT/HCPCS: 32555; 36415; 36600; 47000; 70450-TC; 71045; 71250-TC; 76700-TC; 80048; 80053; 80061; 80076; 81003; 82803-TC; 82947-TC; 83036; 83605; 83615-TC; 83690-TC; 83735-TC; 83880; 84153; 84157-TC; 84484; 85007; 85025; 85027; 85379; 85610-TC; 85730-TC; 86710; 87040-TC; 87070-TC; 87081; 87086; 87101; 87116; 87205-TC; 88108; 88305; 88307; 88313; 88341; 88342; 89051-TC; 89060-TC; 93005; 93306; 93970; 94640; 94660; 94760; 96361; 96365; 96368; 96375; 96376; 99291; C1729; G0378; J1644; J1650; J1940; J2001; J2270; J2543; J2930; J3370; J7620; J7626

== ENCOUNTER 2018-08-02 15:33 | Inpatient (IN) | payer OTHER ==
[~2018-08-02] VITALS: Ht 180.3 cm; Wt 78.0 kg
[~2018-08-02 15:33] MED LIST: ALBMDI INH; AUG875 PO; BECL10.62 IH; BENZ-16 PO; DOCU-144 PO; FERR140T2 PO; FLUT16SP16 NS; HYDR-3110 PO; IBUP-1971 PO; LOSA50TA3 PO; MONT10TA25 PO; MORP15TA60 PO; MULT-1117 PO; ONDA4TAB5 PO; PHEDM120 PO; PRED20TA PO
[2018-08-02 15:40] VITALS: BP_SYST 123
[2018-08-02] MEDS ORDERED: ONDANSETRON 4 MG ODT TAB PO PRN (16:30)
[2018-08-02] MEDS ORDERED: BENZONATATE 100 MG CAPSULE (TESSALON) PO PRN (16:30)
[2018-08-02] MEDS ORDERED: ALBUTEROL MDI INHALATION 8 GM INH INH PRN (16:30)
[2018-08-02] MEDS ORDERED: PROMETHAZINE-DM 6.25 MG-15 MG/5 ML UDC PO PRN (16:30)
[2018-08-02] MEDS ORDERED: NON-FORMULARY MEDICATION (Hydrocodone Bit/Acetaminophen (Hydrocodon-Acetaminophen 5-300) 1 PO PRN (16:30)
[2018-08-02 17:09] LABS: WHITE BLOOD COUNT (AUTO) 6.7 K/uL (4.8-10.8)
[2018-08-02 17:10] LABS: BASOPHILS # (AUTO) 0.1 K/uL (0.0-0.2); BASOPHILS % (AUTO) 1.1 % (0.0-2.0); EOSINOPHILS # (AUTO) 0.1 K/uL (0.0-0.4); HEMATOCRIT 30.6 % (36-54); HEMOGLOBIN 10.1 g/dL (14.0-18.0); LYMPHOCYTES # (AUTO) 0.9 K/uL (1.0-5.5); LYMPHOCYTES % (AUTO) 13.8 % (20.5-51.5); MEAN CORPUSCULAR HEMOGLOBIN 26 pg (27-31); MEAN CORPUSCULAR HGB CONC 33 % (32-36); MEAN CORPUSCULAR VOLUME 78 fL (79.0-98.0); MONOCYTES # (AUTO) 0.7 K/uL (0.0-1.0); NEUTROPHILS # (AUTO) 4.9 K/uL (1.8-7.7); NEUTROPHILS % (AUTO) 73.1 % (40.0-70.0); PLATELET COUNT (AUTO) 233 K/uL (130-430); RED BLOOD CELL COUNT(AUTO) 3.94 MIL/uL (4.2-6.2); RED CELL DISTRIBUTION WIDTH 19.5 % (9.0-15.0)
[2018-08-02 17:11] LABS: CALCIUM 8.2 mg/dL (8.4-11.0); CREATININE 1.01 mg/dL (0.55-1.30); POTASSIUM 4.8 mmol/L (3.5-5.1)
[2018-08-02] MEDS ORDERED: HYDROcodone/ACETAMIN 5-325 MG TAB (NORCO/ VICODIN) PO PRN (17:15)
[2018-08-02 17:16] LABS: INR 1.3 (0.80-1.20); PROTHROMBIN TIME 13.2 SECS (9.5-12.5)
[2018-08-02 17:17] LABS: ALBUMIN 1.5 g/dL (3.4-4.8); TOTAL BILIRUBIN 0.5 mg/dL (0.0-1.0)
[2018-08-02] MEDS ORDERED: ALBUTEROL SULFATE 0.083% 2.5 MG/3 ML VIAL.NEB INH PRN (17:30)
[2018-08-02] MEDS ORDERED: fentaNYL CITRATE/PF 100 MCG/2 ML AMP IVP PRN ×2 (19:00)
[2018-08-02] MEDS ORDERED: ONDANSETRON HCL 4 MG/2 ML VIAL IVP PRN (19:00)
[2018-08-02] MEDS ORDERED: ALBUTEROL SULFATE 0.083% 2.5 MG/3 ML VIAL.NEB INH ONE ×2 (19:15→19:23)
[2018-08-02 19:50] VITALS: BP_SYST 103
[2018-08-02 21:00] VITALS: BP_SYST 116; BP_SYST 123
[2018-08-02] MEDS: MORPHINE SULFATE 15 MG TABLET.ER PO SCH (21:20)
[2018-08-02] MEDS: IBUPROFEN 800 MG TABLET PO SCH (21:21)
[2018-08-02] MEDS: AMOXICILLIN/CLAVULANATE POTASSIUM 875 MG TABLET PO SCH (21:21)
[2018-08-02] MEDS: DOCUSATE SODIUM 100 MG CAPSULE PO SCH (21:21)
[2018-08-02] MEDS: FLUTICASONE PROPIONATE 50 mCg/SPRAY 16 GM NS SCH (21:22)
[2018-08-03 00:27] VITALS: BP_SYST 113
[2018-08-03] MEDS: FLUTICASONE PROPIONATE 50 mCg/SPRAY 16 GM NS SCH ×2 (08:06→21:13)
[2018-08-03] MEDS: MULTIVITAMINS TAB 1 TABLET PO SCH (08:06)
[2018-08-03] MEDS: AMOXICILLIN/CLAVULANATE POTASSIUM 875 MG TABLET PO SCH ×2 (08:07→21:08)
[2018-08-03] MEDS: MONTELUKAST 10 MG TABLET PO SCH (08:07)
[2018-08-03] MEDS: FERROUS SULFATE 325 MG TABLET.DR PO SCH (08:07)
[2018-08-03] MEDS: PREDNISONE 10 MG TABLET PO SCH (08:07)
[2018-08-03] MEDS: IBUPROFEN 800 MG TABLET PO SCH ×3 (08:07→21:09)
[2018-08-03] MEDS: DOCUSATE SODIUM 100 MG CAPSULE PO SCH ×2 (08:07→21:00)
[2018-08-03] MEDS: MORPHINE SULFATE 15 MG TABLET.ER PO SCH ×2 (08:07→21:09)
[2018-08-03] MEDS: LOSARTAN POTASSIUM 50 MG TABLET (COZAAR) PO SCH (08:07)
[2018-08-03 09:01] VITALS: BP_SYST 127
[2018-08-03] MEDS ORDERED: FLUTICASONE FUROATE 100 MCG BLST.W.DEV INH SCH (11:00)
[2018-08-03 11:28] VITALS: BP_SYST 121
[2018-08-03 15:17] VITALS: BP_SYST 119
[2018-08-03 20:00] VITALS: BP_SYST 126
[2018-08-04 02:15] VITALS: BP_SYST 108
[2018-08-04 06:37] LABS: ALANINE AMINOTRANSFERASE 73 U/L (12-78); ALBUMIN 1.3 g/dL (3.4-4.8); ASPARTATE AMINOTRANSFERASE 80 U/L (10-37); CALCIUM 7.8 mg/dL (8.4-11.0); CHLORIDE 102 mmol/L (98-107); CREATININE 1.04 mg/dL (0.55-1.30); GLUCOSE 94 mg/dL (70-99); POTASSIUM 4.4 mmol/L (3.5-5.1); SODIUM SERUM 132 mmol/L (136-145); TOTAL BILIRUBIN 0.4 mg/dL (0.0-1.0); UREA NITROGEN, BLOOD 12 mg/dL (8-21)
[2018-08-04 06:44] LABS: ANION GAP < 3 (5-15); GFR AFRICAN AMERICAN 98 mL/min (>90)
[2018-08-04] MEDS: IBUPROFEN 800 MG TABLET PO SCH ×3 (08:31→21:21)
[2018-08-04] MEDS: FLUTICASONE PROPIONATE 50 mCg/SPRAY 16 GM NS SCH ×2 (08:31→21:24)
[2018-08-04] MEDS: FERROUS SULFATE 325 MG TABLET.DR PO SCH (08:32)
[2018-08-04] MEDS: AMOXICILLIN/CLAVULANATE POTASSIUM 875 MG TABLET PO SCH ×2 (08:32→21:22)
[2018-08-04] MEDS: MORPHINE SULFATE 15 MG TABLET.ER PO SCH ×2 (08:32→21:22)
[2018-08-04] MEDS: MONTELUKAST 10 MG TABLET PO SCH (08:32)
[2018-08-04] MEDS: MULTIVITAMINS TAB 1 TABLET PO SCH (08:32)
[2018-08-04] MEDS: PREDNISONE 10 MG TABLET PO SCH (08:32)
[2018-08-04] MEDS: RIVAROXABAN 15 MG TABLET PO SCH ×2 (08:33→18:24)
[2018-08-04] MEDS: LOSARTAN POTASSIUM 50 MG TABLET (COZAAR) PO SCH (09:00)
[2018-08-04] MEDS: DOCUSATE SODIUM 100 MG CAPSULE PO SCH ×2 (09:00→21:23)
[2018-08-04 09:43] LABS: HEMATOCRIT 29.3 % (36-54); HEMOGLOBIN 9.5 g/dL (14.0-18.0); MEAN CORPUSCULAR VOLUME 78 fL (79.0-98.0); RED BLOOD CELL COUNT(AUTO) 3.76 MIL/uL (4.2-6.2); WHITE BLOOD COUNT (AUTO) 3.9 K/uL (4.8-10.8)
[2018-08-04 09:44] LABS: BASOPHILS % (AUTO) 0.7 % (0.0-2.0); EOSINOPHILS # (AUTO) 0.2 K/uL (0.0-0.4); EOSINOPHILS % (AUTO) 4.4 % (0.0-4.0); LYMPHOCYTES # (AUTO) 0.9 K/uL (1.0-5.5); MEAN CORPUSCULAR HEMOGLOBIN 25 pg (27-31); MEAN CORPUSCULAR HGB CONC 32 % (32-36); MONOCYTES % (AUTO) 24.9 % (1.7-9.3); NEUTROPHILS # (AUTO) 1.8 K/uL (1.8-7.7); PLATELET COUNT (AUTO) 224 K/uL (130-430); RED CELL DISTRIBUTION WIDTH 19.3 % (9.0-15.0)
[2018-08-04 09:49] VITALS: BP_SYST 107
[2018-08-04 11:36] VITALS: BP_SYST 114
[2018-08-04 15:27] VITALS: BP_SYST 108
[2018-08-04 20:00] VITALS: BP_SYST 118
[2018-08-05 00:44] VITALS: BP_SYST 109
[2018-08-05 07:32] LABS: CALCIUM 7.9 mg/dL (8.4-11.0); CREATININE 1.65 mg/dL (0.55-1.30); POTASSIUM 4.2 mmol/L (3.5-5.1)
[2018-08-05 07:41] LABS: ALBUMIN 1.5 g/dL (3.4-4.8); TOTAL BILIRUBIN 0.4 mg/dL (0.0-1.0)
[2018-08-05 08:08] VITALS: BP_SYST 115
[2018-08-05] MEDS: MORPHINE SULFATE 15 MG TABLET.ER PO SCH (08:34)
[2018-08-05] MEDS: DOCUSATE SODIUM 100 MG CAPSULE PO SCH (08:34)
[2018-08-05] MEDS: MONTELUKAST 10 MG TABLET PO SCH (08:34)
[2018-08-05] MEDS: PREDNISONE 10 MG TABLET PO SCH (08:34)
[2018-08-05] MEDS: AMOXICILLIN/CLAVULANATE POTASSIUM 875 MG TABLET PO SCH (08:34)
[2018-08-05] MEDS: FERROUS SULFATE 325 MG TABLET.DR PO SCH (08:35)
[2018-08-05] MEDS: LOSARTAN POTASSIUM 50 MG TABLET (COZAAR) PO SCH (08:35)
[2018-08-05] MEDS: IBUPROFEN 800 MG TABLET PO SCH ×2 (08:35→15:06)
[2018-08-05] MEDS: MULTIVITAMINS TAB 1 TABLET PO SCH (08:35)
[2018-08-05] MEDS: FLUTICASONE PROPIONATE 50 mCg/SPRAY 16 GM NS SCH (08:36)
[2018-08-05] MEDS: RIVAROXABAN 15 MG TABLET PO SCH (08:37)
[2018-08-05 08:43] LABS: HEMATOCRIT 30.5 % (36-54); HEMOGLOBIN 9.9 g/dL (14.0-18.0); RED BLOOD CELL COUNT(AUTO) 3.92 MIL/uL (4.2-6.2); WHITE BLOOD COUNT (AUTO) 4.1 K/uL (4.8-10.8)
[2018-08-05 08:44] LABS: BASOPHILS % (AUTO) 0.6 % (0.0-2.0); EOSINOPHILS # (AUTO) 0.2 K/uL (0.0-0.4); EOSINOPHILS % (AUTO) 5.4 % (0.0-4.0); LYMPHOCYTES % (AUTO) 24.9 % (20.5-51.5); MEAN CORPUSCULAR HEMOGLOBIN 25 pg (27-31); MEAN CORPUSCULAR HGB CONC 33 % (32-36); MEAN CORPUSCULAR VOLUME 78 fL (79.0-98.0); MONOCYTES # (AUTO) 0.8 K/uL (0.0-1.0); MONOCYTES % (AUTO) 19.7 % (1.7-9.3); NEUTROPHILS % (AUTO) 49.4 % (40.0-70.0); PLATELET COUNT (AUTO) 246 K/uL (130-430); RED CELL DISTRIBUTION WIDTH 19.5 % (9.0-15.0)
[2018-08-05] MEDS ORDERED: FLUTICASONE FUROATE 100 MCG BLST.W.DEV INH SCH (09:00)
[2018-08-05] MEDS ORDERED: FLUTICASONE PROPIONATE 50 mCg/SPRAY 16 GM NS SCH (11:44)
[2018-08-05 12:40] VITALS: BP_SYST 120
[2018-08-05 13:53] VITALS: BP_SYST 120
[2018-08-05 15:52] VITALS: BP_SYST 142
[2018-08-05 16:43] VITALS: BP_SYST 142
[2018-08-05] MEDS ORDERED: LR 1,000 ML IV.SOLN IV ONE (17:45)
[2018-08-05] MEDS ORDERED: KETOROLAC TROMETHAMINE 30 MG VIAL IVP ONE (17:45)
[2018-08-05] MEDS ORDERED: WATER FOR IRRIGATION,STERILE 1,000 ML IRRIG.SOLN IR ONE (17:45)
[2018-08-05] MEDS ORDERED: CEFAZOLIN 2 GM IVPB PREMIX 50 ML IV ONE (17:45)
[2018-08-05] MEDS ORDERED: MIDAZOLAM HCL 5 MG/5 ML VIAL IVP ONE (17:45)
[2018-08-05] MEDS ORDERED: fentaNYL CITRATE/PF 100 MCG/2 ML AMP IVP ONE (17:45)
[2018-08-05] MEDS ORDERED: PROPOFOL 200MG/ 20ML VIAL (DIPRIVAN) IV ONE (17:45)
[2018-08-05] MEDS ORDERED: BUDESONIDE 0.5 MG/2 ML AMPUL.NEB IH SCH (19:00)
== END 2018-08-05 17:55 | disposition home health service (06) | DRG 136 ==
LOC: SED 15:33 → SMU 16:27
PROVIDERS: ADMIT Family Medicine; ATTEND Family Medicine
PROC: 0W9B30Z Drainage of Left Pleural Cavity with Drainage Device, Percutaneous Approach (ICD-10-PCS; principal; 2018-08-02 17:00)
DX: C34.92 Malignant neoplasm of unspecified part of left bronchus or lung (principal); E43 Unspecified severe protein-calorie malnutrition; J91.0 Malignant pleural effusion; I82.402 Acute embolism and thrombosis of unspecified deep veins of left lower extremity; C78.7 Secondary malignant neoplasm of liver and intrahepatic bile duct; D64.9 Anemia, unspecified; I10 Essential (primary) hypertension; J45.909 Unspecified asthma, uncomplicated; Z80.1 Family history of malignant neoplasm of trachea, bronchus and lung; Z85.118 Personal history of other malignant neoplasm of bronchus and lung; Z86.718 Personal history of other venous thrombosis and embolism; Z68.24 Body mass index [BMI] 24.0-24.9, adult; Z79.01 Long term (current) use of anticoagulants; Z79.899 Other long term (current) drug therapy; Z79.1 Long term (current) use of non-steroidal anti-inflammatories (NSAID)
CPT/HCPCS: 36415; 71045; 71046-TC; 80053; 85025; 85610-TC; 85730-TC; 87081; 94760; 99285; J0690; J1885; J2250; J2704; J3010; J7120; J7512; J7613; Q0162

== ENCOUNTER 2018-08-06 12:20 | Emergency (ER) | payer OTHER ==
[~2018-08-06] VITALS: Ht 180.3 cm; Wt 77.1 kg
[2018-08-06 12:24] VITALS: BP_SYST 122
--- NOTE | 2018-08-06 12:30 | NUR ---
Patient to ER bed 3 to gown for evaluation. Side rails up.
--- NOTE | 2018-08-06 12:30 | NUR ---
ER Dr. Ng at bedside examining patient.
--- NOTE | 2018-08-06 12:35 | NUR ---
Pt states he has discomfort at site of pleural tube and "was supposed to get drained but home health nurse never showed up to drain." Pt states he was advised to go to ER. No other complaints or injuries per pt or noted.
--- NOTE | 2018-08-06 15:22 | NUR ---
Maranda from [facility] called asking for status.
[2018-08-06] MEDS ORDERED: NACL 0.9% 1,000 ML IV ONE (15:30)
[2018-08-06] MEDS ORDERED: MORPHINE 4 MG/ML INJ. SYRINGE IVP ONE ×3 (17:15→20:00)
--- NOTE | 2018-08-06 17:55 | NUR ---
Endorsed plan of care to Makeda GREENBERG
--- NOTE | 2018-08-06 17:57 | NUR ---
[facility] lack of set up of supplies for the drainage of the pleur-X valve. They will not be able to take patient and have told case packer to redirect patient
--- NOTE | 2018-08-06 18:20 | NUR ---
Left chest Pleurx dressing was changed. Wound site cleansed with chlorhexdine swabs, petroleum dressing applied to site, foam tap applied over Pleurx tube. Dressing orders were given verbally by Dr. Ng.
--- NOTE | 2018-08-06 18:30 | NUR ---
[place] of care received, pt A&Ox4 , pt VSS, pt resting at this time, afebrile, will continue to monitor
--- NOTE | 2018-08-06 18:40 | NUR ---
Pt family and Dr Ng at bedside.
--- NOTE | 2018-08-06 18:45 | NUR ---
Pt refusing to be discahrge at this home, states he wants to be admitted to the hospital for pain management and fluid drainage from Pleurex tube.
--- NOTE | 2018-08-06 19:19 | NUR ---
Pt on stable condition, report given to Donald GREENBERG
--- NOTE | 2018-08-06 19:25 | NUR ---
Pt c/o left chest pain at 02/11. Dr. Sabillon made aware.
--- NOTE | 2018-08-06 19:30 | NUR ---
Dr. Sabillon on phone with Dr. Nolen.
--- NOTE | 2018-08-06 19:31 | NUR ---
Dr. Sabillon on the phone with Dr. Chakraborty.
--- NOTE | 2018-08-06 19:35 | NUR ---
Dr. Sabillon at bed to speak with family member regarding POC.
--- NOTE | 2018-08-06 19:42 | NUR ---
Dr. Sabillon and Dr. Mccullough at pt's bedside to drain left pleural effusion. PleurX Drainage Kit connected by Dr. Sabillon to indwelling left intra thorax PleurX catheter and immediate drainage of frothy dark tea color fluid noted. Pt immediately begins to experience relief in pain. B/P 188/82, P 108, RR 22, SPO2 99% RA. Will continue to monitor pt and drainage system. Pt.'s brother at bedside.
--- NOTE | 2018-08-06 19:55 | NUR ---
600 mL frothy tea colored drainage to collection cannister. No leaks in drainage system noted. VSS.
--- NOTE | 2018-08-06 20:10 | NUR ---
1000 mL Frothy Tea colored drainage collected to PleurX Drainage collection cannister. Per Dr. Chakraborty, no further drainage required at this time. Collection system disconnected, no leakage noted to tubing connected to pt. Dsg to left chest remains secure, intact, and dry. Pt verbalizes relief in pain from 10/10 to 6/10.
--- NOTE | 2018-08-06 20:25 | NUR ---
Pt medicated with Morphine 4 mg IVP for 8/10 pain. VSS.
[2018-08-06 20:52] VITALS: BP_SYST 151
--- NOTE | 2018-08-06 20:52 | NUR ---
2051 - Patient given written and verbal discharge instructions and verbalizes understanding. ER MD discussed with patient the results and treatment provided. Patient in stable condition. ID arm band removed. IV catheter removed intact and dressing applied, no active bleeding. Patient educated on pain management and to follow up with PMD. Pain Scale 0/flacc. Opportunity for questions provided and answered. Medication side effect fact sheet provided. Pt and brother informed that Case Management would be setting up home health first thing in AM. Pt and brother advised to return to ER if symptoms return or for further concerns. Pt and brother agreeable with instructions and plan to discharge home. Pt in no distress. Assisted to vehicle in wheelchair.
--- NOTE | 2018-08-07 10:47 | NUR ---
Case management: late entry: CM met with pt yesterday in ED at 1400 : the pt came to ED due to chest discomfort and had the pleural fluid drained 1000 ml out by the ED doctor. I spoke with dr. Sabillon who stated he will admit the pt. to floor, but instead the pt. was discharged home at 2145. >> Desmond received the order from ED to arrange HH f/u in am. 08/07/18. DESMOND clarified the order with dr. Beltran that the pt will need Pleurx every 4 days and the pt. needs to see his oncologist at [facility] this week. CM to arrange 2 drainage kits to take home. >> Contacted [facility], informed Mallorie that the previous HH( [facility]) signed off the case. DESMOND requested a new HH set up. Mallorie provided 4 home health agencies : [facility], [facility], [facility] and [facility]. Nia robertsp to find the accepting agency. DESMOND also faxed the , FS, ED notes, Surgery note, pulmo note and HH request order attn to Mallorie today. DESMOND requested the stat approval for [facility] to see the pt. today. >> DESMOND spoke with Mir at [facility] who stated the pt. is accepted and he is calling the [facility] for authorization. >> For the pleurX drainage supply kit: DESMOND confirmed with pt's brother/Ananth that there was no supplied given from emergency room yesterday. DESMOND arranged with Luis , Material supply director who approved and dispensed 2 pleurX drainage kits per discharge order. Daphne, Picture Frames Inspector made aware. >> DESMOND called the pt. but no answer, I left voice message for him to return my call [facility] for HH care instruction. The I called his brother/Ananth and able to give him the specific care instruction per dr. Beltran order above. Ananth stated he is calling [facility] today for this week appointment. He confirmed that he will fish bait picker the drainage kits today at 630 pm at the senior front end web developer/[employer] lobby. Daphne, Picture Frames Inspector made aware. Addendum: 08/07/18 at 1350 by Tomasz De Oliveira RN >> received call from [facility]/ Gaetano Witt, visiting nurse is scheduled to see the pt. on Wednesday 08/09. CM requested a nurse to see the pt. sooner either today or . This is to allow time for [facility] to assess the pt and to order the pleural drainage kits. I am concerning that [facility] may not get the supply approval from [facility] during weekend. Miryam made aware that the patient received 2 drainage kits from [facility] today. Miryam will try to find a nurse to see the pt tomorrow. She will call back to confirm the visiting time.
--- NOTE | 2018-08-07 11:09 | NUR ---
Discharge Planning: [facility] faxed pt referral to [facility] (f [phone] p [phone]) DCP spoke to Mir, stated pt would be acceted. DANYELL made CM aware. Addendum: 08/07/18 at 1427 by Nia Teixeira DP [facility] delivered 2 Pluerx drainage canisters with instructions to reception interviewer area for patients brother to pick remover at 6:30pm Ananth Babb. Addendum: 08/07/18 at 1514 by Nia Teixeira DP [facility] (f [phone] p [phone]) stated the first open time the nurse can visit will be Sunday08/09/18.
--- NOTE | 2018-08-07 13:50 | NUR ---
Discharge instruction per md's order provided to Ananth Babb for patient Elbert Babb. -- Home health nurse to perform pleural fluid drainage every 4 days and to do the Pleurx site care and teaching. -- The pt is to follow up with his oncologist at [facility] this week. CM notified Ananth/the patient's brother to strip picker 2 Pleurx drainage supply kits at the PBX/front lobby today at 630 pm. [employer], tel # [phone] attn Miryam or Mir to send visiting nurse on , or Sunday 8. Notice: The patient is to go to emergency room if having chest discomfort or unable to breath. Contact information: >> [employer], tel # [phone]. >> Ananth /brother's home address: [address] [id number], phone # [phone]. >> Pt's cell # [phone].
== END 2018-08-06 20:52 | disposition home or self-care (01) ==
LOC: SED 12:20
DX: J90 Pleural effusion, not elsewhere classified (principal); Z85.118 Personal history of other malignant neoplasm of bronchus and lung; Z79.899 Other long term (current) drug therapy
CPT/HCPCS: 71045; 96374; 96376; 99283; J2270; J7030; 96360

== ENCOUNTER 2018-08-12 14:18 | Inpatient (IN) | payer OTHER ==
[~2018-08-12] VITALS: Ht 180.3 cm; Wt 78.0 kg
[2018-08-12 15:02] VITALS: BP_SYST 146
[2018-08-12 16:59] LABS: HEMATOCRIT 31.3 % (36-54); MEAN CORPUSCULAR VOLUME 77 fL (79.0-98.0); RED BLOOD CELL COUNT(AUTO) 4.05 MIL/uL (4.2-6.2); WHITE BLOOD COUNT (AUTO) 14.7 K/uL (4.8-10.8)
[2018-08-12 17:00] LABS: MEAN CORPUSCULAR HEMOGLOBIN 25 pg (27-31); MEAN CORPUSCULAR HGB CONC 32 % (32-36); NEUTROPHILS % (AUTO) 79.1 % (40.0-70.0); PLATELET COUNT (AUTO) 179 K/uL (130-430); RED CELL DISTRIBUTION WIDTH 19.5 % (9.0-15.0)
[2018-08-12 17:01] LABS: BASOPHILS # (AUTO) 0.1 K/uL (0.0-0.2); BASOPHILS % (AUTO) 0.5 % (0.0-2.0); EOSINOPHILS % (AUTO) 0.3 % (0.0-4.0); LYMPHOCYTES # (AUTO) 1.4 K/uL (1.0-5.5); LYMPHOCYTES % (AUTO) 9.5 % (20.5-51.5); MONOCYTES # (AUTO) 1.6 K/uL (0.0-1.0); MONOCYTES % (AUTO) 10.6 % (1.7-9.3); NEUTROPHILS # (AUTO) 11.6 K/uL (1.8-7.7)
[2018-08-12 17:08] LABS: CALCIUM 8.2 mg/dL (8.4-11.0); CREATININE 1.21 mg/dL (0.55-1.30); POTASSIUM 4.6 mmol/L (3.5-5.1)
[2018-08-12 17:13] LABS: ALBUMIN 1.7 g/dL (3.4-4.8); TOTAL BILIRUBIN 0.4 mg/dL (0.0-1.0)
[2018-08-12 17:15] LABS: INR 2.3 (0.80-1.20); PROTHROMBIN TIME 22.9 SECS (9.5-12.5)
[2018-08-12] MEDS ORDERED: BACITRACIN 50,000 UNITS VIAL IM ONE (19:00)
[2018-08-12] MEDS ORDERED: NS 1000 ML IV.SOLN IV ONE (19:00)
[2018-08-12] MEDS ORDERED: MIDAZOLAM HCL 5 MG/5 ML VIAL IVP ONE ×2 (19:00→20:20)
[2018-08-12] MEDS ORDERED: PROPOFOL 200MG/ 20ML VIAL (DIPRIVAN) IV ONE ×2 (19:00→20:20)
[2018-08-12 20:11] VITALS: BP_SYST 153
[2018-08-12] MEDS ORDERED: NS IRRIG SOLN 1000 ML IR ONE (20:20)
[2018-08-12] MEDS ORDERED: NS 100 ML BAG IV ONE (20:20)
[2018-08-12] MEDS ORDERED: WATER FOR IRRIGATION,STERILE 1,000 ML IRRIG.SOLN IR ONE (20:20)
[2018-08-12] MEDS ORDERED: PIPERACILLIN/TAZOBACTAM 3.375 GM/VIAL (ZOSYN) IV ONE (21:41)
[2018-08-12 21:43] VITALS: BP_SYST 153
[2018-08-12] MEDS: NACL 0.9% 1,000 ML IV SCH (22:11)
[2018-08-12 22:19] VITALS: BP_SYST 128
[2018-08-12] MEDS: PIPERACILLIN/TAZO 3.375/DEX-IS 50 ML IV SCH (22:21)
[2018-08-12] MEDS: ALBUTEROL SULFATE 0.083% 2.5 MG/3 ML VIAL.NEB INH PRN (23:16)
[2018-08-12] MEDS: IPRATROPIUM BROM 0.5 MG/2.5 ML VIAL.NEB (ATROVENT) INH PRN (23:16)
[2018-08-13] MEDS: IPRATROPIUM BROM 0.5 MG/2.5 ML VIAL.NEB (ATROVENT) INH SCH ×4 (01:00→19:35)
[2018-08-13] MEDS: ALBUTEROL SULFATE 0.083% 2.5 MG/3 ML VIAL.NEB INH SCH ×4 (01:00→19:35)
[2018-08-13] MEDS: PIPERACILLIN/TAZO 3.375/DEX-IS 50 ML IV SCH ×5 (05:09→23:05)
[2018-08-13 07:58] VITALS: BP_SYST 131
[2018-08-13] MEDS ORDERED: *HEPARIN PER PHARMACY XX ONE (09:00)
[2018-08-13 09:45] LABS: INR 1.5 (0.80-1.20); PROTHROMBIN TIME 15.4 SECS (9.5-12.5)
[2018-08-13] MEDS ORDERED: HEPARIN SODIUM,PORCINE 5000 UNITS/ML VIAL IVP ONE ×2 (10:15→11:00)
[2018-08-13 11:19] VITALS: BP_SYST 116
[2018-08-13] MEDS: HEPARIN 25,000 UNITS in 250 ML PREMIX IV PRN ×2 (11:42→19:43)
[2018-08-13] MEDS: ACETAMINOPHEN 500 MG TABLET PO PRN ×2 (12:27→23:11)
[2018-08-13 16:24] VITALS: BP_SYST 115
[2018-08-13] MEDS: NACL 0.9% 1,000 ML IV SCH (17:15)
[2018-08-13 20:00] VITALS: BP_SYST 143
[2018-08-13] MEDS ORDERED: VANCOMYCIN HCL 750 MG in NS 250 ML IV SCH (21:15)
[2018-08-13] MEDS: ALBUTEROL SULFATE 0.083% 2.5 MG/3 ML VIAL.NEB INH PRN (22:38)
[2018-08-13] MEDS: IPRATROPIUM BROM 0.5 MG/2.5 ML VIAL.NEB (ATROVENT) INH PRN (22:38)
[2018-08-13] MEDS ORDERED: VANCOMYCIN HCL 500 MG/VIAL IV ONE (22:55)
[2018-08-13] MEDS ORDERED: VANCOMYCIN HCL 1000 MG/VIAL IV ONE (22:55)
[2018-08-13] MEDS ORDERED: VANCOMYCIN HCL 1,250 MG in NS 250 ML IV ONE (23:00)
[2018-08-14 00:07] VITALS: BP_SYST 126
[2018-08-14] MEDS: IPRATROPIUM BROM 0.5 MG/2.5 ML VIAL.NEB (ATROVENT) INH SCH ×4 (01:00→20:05)
[2018-08-14] MEDS: ALBUTEROL SULFATE 0.083% 2.5 MG/3 ML VIAL.NEB INH SCH ×4 (01:00→20:05)
[2018-08-14] MEDS: HEPARIN SODIUM,PORCINE 3000 UNITS/0.6 ML BOLUS IVP PRN ×2 (01:46→09:42)
[2018-08-14] MEDS: HEPARIN 25,000 UNITS in 250 ML PREMIX IV PRN ×2 (01:50→09:41)
[2018-08-14] MEDS: PIPERACILLIN/TAZO 3.375/DEX-IS 50 ML IV SCH ×4 (06:31→23:52)
[2018-08-14 06:33] LABS: CALCIUM 7.3 mg/dL (8.4-11.0); CREATININE 1.16 mg/dL (0.55-1.30); POTASSIUM 4.3 mmol/L (3.5-5.1)
[2018-08-14 06:41] LABS: ALBUMIN 1.3 g/dL (3.4-4.8); TOTAL BILIRUBIN 0.6 mg/dL (0.0-1.0)
[2018-08-14] MEDS: NACL 0.9% 1,000 ML IV SCH (07:20)
[2018-08-14 07:40] LABS: BASOPHILS # (AUTO) 0.1 K/uL (0.0-0.2); BASOPHILS % (AUTO) 0.4 % (0.0-2.0); EOSINOPHILS # (AUTO) 0.1 K/uL (0.0-0.4); EOSINOPHILS % (AUTO) 0.5 % (0.0-4.0); HEMATOCRIT 27.1 % (36-54); HEMOGLOBIN 8.7 g/dL (14.0-18.0); LYMPHOCYTES # (AUTO) 1.3 K/uL (1.0-5.5); LYMPHOCYTES % (AUTO) 9.2 % (20.5-51.5); MEAN CORPUSCULAR HEMOGLOBIN 25 pg (27-31); MEAN CORPUSCULAR HGB CONC 32 % (32-36); MEAN CORPUSCULAR VOLUME 78 fL (79.0-98.0); MONOCYTES # (AUTO) 1.3 K/uL (0.0-1.0); MONOCYTES % (AUTO) 9.1 % (1.7-9.3); NEUTROPHILS # (AUTO) 11.8 K/uL (1.8-7.7); NEUTROPHILS % (AUTO) 80.8 % (40.0-70.0); PLATELET COUNT (AUTO) 168 K/uL (130-430); RED CELL DISTRIBUTION WIDTH 19.7 % (9.0-15.0); WHITE BLOOD COUNT (AUTO) 14.6 K/uL (4.8-10.8)
[2018-08-14 08:15] VITALS: BP_SYST 129
[2018-08-14] MEDS: MORPHINE 4 MG/ML INJ. SYRINGE IVP PRN ×2 (11:55→22:21)
[2018-08-14 12:42] VITALS: BP_SYST 121
[2018-08-14] MEDS: VANCOMYCIN HCL 1,000 MG in NS 250 ML IV SCH (13:20)
[2018-08-14 16:08] LABS: BILIRUBIN,URINE NEGATIVE (NEGATIVE); BLOOD, URINE NEGATIVE (NEGATIVE); CLARITY/URINE CLEAR (CLEAR); COLOR,URINE YELLOW (YELLOW); GLUCOSE,URINE NEGATIVE (NEGATIVE); KETONES,URINE NEGATIVE (NEGATIVE); LEUKOCYTE ESTERASE ,URINE NEGATIVE (NEGATIVE); NITRITE, URINE NEGATIVE (NEGATIVE); PROTEIN URINE TRACE (NEGATIVE); UROBILINOGEN,URINE 0.2 (0.2-1.0)
[2018-08-14 16:36] LABS: BACTERIA,URINE FEW /HPF (None Seen); RBC,URINE NONE SEEN /HPF (0-3); WBC,URINE 0-3 /HPF (0-3)
[2018-08-14 16:37] LABS: MUCUS,URINE None Seen /LPF (None Seen)
[2018-08-14 16:45] VITALS: BP_SYST 133
[2018-08-14] MEDS ORDERED: POLYMYXIN 500,000/BACIT.10,000 UNITS in NS IRR 1 L IR ONE (19:57)
[2018-08-15 00:18] VITALS: BP_SYST 133
[2018-08-15] MEDS: VANCOMYCIN HCL 1,000 MG in NS 250 ML IV SCH ×2 (00:33→14:16)
[2018-08-15] MEDS: IPRATROPIUM BROM 0.5 MG/2.5 ML VIAL.NEB (ATROVENT) INH SCH ×4 (01:35→20:12)
[2018-08-15] MEDS: ALBUTEROL SULFATE 0.083% 2.5 MG/3 ML VIAL.NEB INH SCH ×4 (01:35→20:12)
[2018-08-15] MEDS: HEPARIN 25,000 UNITS in 250 ML PREMIX IV PRN ×3 (02:03→18:36)
[2018-08-15] MEDS: NACL 0.9% 1,000 ML IV SCH (05:53)
[2018-08-15] MEDS: PIPERACILLIN/TAZO 3.375/DEX-IS 50 ML IV SCH ×3 (05:53→17:22)
[2018-08-15 07:18] VITALS: BP_SYST 115
[2018-08-15 07:54] VITALS: BP_SYST 115
[2018-08-15 08:23] LABS: HEMATOCRIT 26.7 % (36-54); HEMOGLOBIN 8.6 g/dL (14.0-18.0); MEAN CORPUSCULAR HEMOGLOBIN 25 pg (27-31); MEAN CORPUSCULAR HGB CONC 32 % (32-36); MEAN CORPUSCULAR VOLUME 77 fL (79.0-98.0); RED BLOOD CELL COUNT(AUTO) 3.47 MIL/uL (4.2-6.2); WHITE BLOOD COUNT (AUTO) 11.8 K/uL (4.8-10.8)
[2018-08-15 08:24] LABS: BASOPHILS # (AUTO) 0.1 K/uL (0.0-0.2); BASOPHILS % (AUTO) 0.9 % (0.0-2.0); EOSINOPHILS # (AUTO) 0.1 K/uL (0.0-0.4); EOSINOPHILS % (AUTO) 0.9 % (0.0-4.0); LYMPHOCYTES # (AUTO) 1.8 K/uL (1.0-5.5); MONOCYTES # (AUTO) 1.1 K/uL (0.0-1.0); MONOCYTES % (AUTO) 9.3 % (1.7-9.3); NEUTROPHILS # (AUTO) 8.7 K/uL (1.8-7.7); NEUTROPHILS % (AUTO) 73.9 % (40.0-70.0); PLATELET COUNT (AUTO) 199 K/uL (130-430)
[2018-08-15 08:26] LABS: CALCIUM 7.8 mg/dL (8.4-11.0); CREATININE 1.11 mg/dL (0.55-1.30); POTASSIUM 3.8 mmol/L (3.5-5.1)
[2018-08-15 08:33] LABS: ALBUMIN 1.3 g/dL (3.4-4.8); TOTAL BILIRUBIN 0.6 mg/dL (0.0-1.0)
[2018-08-15 11:38] VITALS: BP_SYST 126
[2018-08-15 12:16] VITALS: BP_SYST 118
[2018-08-15] MEDS: MORPHINE 4 MG/ML INJ. SYRINGE IVP PRN ×2 (15:53→21:38)
[2018-08-15 16:36] VITALS: BP_SYST 110
[2018-08-15] MEDS ORDERED: PROPOFOL 200MG/ 20ML VIAL (DIPRIVAN) IV ONE (19:00)
[2018-08-15] MEDS ORDERED: MIDAZOLAM HCL 5 MG/5 ML VIAL IVP ONE (19:00)
[2018-08-15] MEDS ORDERED: NS 1000 ML IV.SOLN IV ONE (19:00)
[2018-08-16] MEDS ORDERED: VANCOMYCIN HCL 1 GM/NS PREMIX 250 ML IV SCH
[2018-08-16] MEDS ORDERED: VANCOMYCIN HCL 1,000 MG in NS 250 ML IV SCH ×2
[2018-08-16 00:14] VITALS: BP_SYST 138
[2018-08-16] MEDS: PIPERACILLIN/TAZO 3.375/DEX-IS 50 ML IV SCH ×2 (01:32→05:17)
[2018-08-16] MEDS: ALBUTEROL SULFATE 0.083% 2.5 MG/3 ML VIAL.NEB INH SCH ×5 (01:47→23:41)
[2018-08-16] MEDS: IPRATROPIUM BROM 0.5 MG/2.5 ML VIAL.NEB (ATROVENT) INH SCH ×5 (01:47→23:41)
[2018-08-16] MEDS: HEPARIN 25,000 UNITS in 250 ML PREMIX IV PRN ×3 (03:07→10:12)
[2018-08-16] MEDS: MORPHINE 4 MG/ML INJ. SYRINGE IVP PRN ×3 (03:11→22:04)
[2018-08-16 07:28] LABS: HEMATOCRIT 23.8 % (36-54); HEMOGLOBIN 7.8 g/dL (14.0-18.0); MEAN CORPUSCULAR HEMOGLOBIN 25 pg (27-31); MEAN CORPUSCULAR HGB CONC 33 % (32-36); MEAN CORPUSCULAR VOLUME 77 fL (79.0-98.0); PLATELET COUNT (AUTO) 199 K/uL (130-430); RED BLOOD CELL COUNT(AUTO) 3.09 MIL/uL (4.2-6.2); RED CELL DISTRIBUTION WIDTH 19.3 % (9.0-15.0); WHITE BLOOD COUNT (AUTO) 9.9 K/uL (4.8-10.8)
[2018-08-16 07:29] LABS: BASOPHILS # (AUTO) 0.1 K/uL (0.0-0.2); BASOPHILS % (AUTO) 0.8 % (0.0-2.0); EOSINOPHILS # (AUTO) 0.2 K/uL (0.0-0.4); EOSINOPHILS % (AUTO) 1.7 % (0.0-4.0); LYMPHOCYTES # (AUTO) 1.7 K/uL (1.0-5.5); LYMPHOCYTES % (AUTO) 17.7 % (20.5-51.5); MONOCYTES % (AUTO) 9.8 % (1.7-9.3); NEUTROPHILS # (AUTO) 6.9 K/uL (1.8-7.7)
[2018-08-16 08:00] VITALS: BP_SYST 129
[2018-08-16 11:42] VITALS: BP_SYST 126
[2018-08-16] MEDS: LEVOFLOXACIN 500 MG/D5W 100 ML IV SCH (11:50)
[2018-08-16] MEDS ORDERED: AMIKACIN SULFATE 1,100 MG in NS 250 ML IV SCH (12:00)
[2018-08-16] MEDS: NS IV SCH (14:25)
[2018-08-16] MEDS: AMIKACIN SULFATE IV SCH (14:25)
[2018-08-16 15:41] VITALS: BP_SYST 123
[2018-08-16 20:00] VITALS: BP_SYST 118
[2018-08-17 00:36] VITALS: BP_SYST 129
[2018-08-17] MEDS: MORPHINE 4 MG/ML INJ. SYRINGE IVP PRN ×5 (02:37→23:14)
[2018-08-17] MEDS: ALBUTEROL SULFATE 0.083% 2.5 MG/3 ML VIAL.NEB INH SCH ×3 (07:00→19:52)
[2018-08-17] MEDS: IPRATROPIUM BROM 0.5 MG/2.5 ML VIAL.NEB (ATROVENT) INH SCH ×3 (07:00→19:52)
[2018-08-17 08:21] LABS: BASOPHILS # (AUTO) 0.1 K/uL (0.0-0.2); BASOPHILS % (AUTO) 1.1 % (0.0-2.0); EOSINOPHILS # (AUTO) 0.2 K/uL (0.0-0.4); HEMATOCRIT 24.1 % (36-54); HEMOGLOBIN 7.8 g/dL (14.0-18.0); LYMPHOCYTES # (AUTO) 1.7 K/uL (1.0-5.5); LYMPHOCYTES % (AUTO) 19.7 % (20.5-51.5); MEAN CORPUSCULAR HEMOGLOBIN 25 pg (27-31); MEAN CORPUSCULAR HGB CONC 33 % (32-36); MEAN CORPUSCULAR VOLUME 78 fL (79.0-98.0); MONOCYTES # (AUTO) 0.9 K/uL (0.0-1.0); MONOCYTES % (AUTO) 10.4 % (1.7-9.3); NEUTROPHILS # (AUTO) 5.9 K/uL (1.8-7.7); NEUTROPHILS % (AUTO) 66.8 % (40.0-70.0); PLATELET COUNT (AUTO) 213 K/uL (130-430); RED BLOOD CELL COUNT(AUTO) 3.08 MIL/uL (4.2-6.2); RED CELL DISTRIBUTION WIDTH 19.8 % (9.0-15.0); WHITE BLOOD COUNT (AUTO) 8.8 K/uL (4.8-10.8)
[2018-08-17] MEDS: HEPARIN SODIUM,PORCINE 2000 UNITS/0.4 ML BOLUS IVP PRN (08:42)
[2018-08-17] MEDS: HEPARIN 25,000 UNITS in 250 ML PREMIX IV PRN ×2 (08:47→18:13)
[2018-08-17 09:34] VITALS: BP_SYST 136
[2018-08-17] MEDS: LEVOFLOXACIN 500 MG/D5W 100 ML IV SCH (10:18)
[2018-08-17 12:02] VITALS: BP_SYST 126
[2018-08-17] MEDS: AMIKACIN SULFATE IV SCH (13:18)
[2018-08-17] MEDS: NS IV SCH (13:18)
[2018-08-17 16:23] VITALS: BP_SYST 128
[2018-08-17 18:37] LABS: TOTAL IRON BIND. CAPACITY 92 ug/dL (250-450)
[2018-08-17 19:50] VITALS: BP_SYST 127
[2018-08-17 20:48] VITALS: BP_SYST 127
[2018-08-18 01:09] VITALS: BP_SYST 142
[2018-08-18] MEDS: HEPARIN 25,000 UNITS in 250 ML PREMIX IV PRN ×2 (01:34→11:04)
[2018-08-18] MEDS: ALBUTEROL SULFATE 0.083% 2.5 MG/3 ML VIAL.NEB INH SCH ×4 (03:05→19:23)
[2018-08-18] MEDS: IPRATROPIUM BROM 0.5 MG/2.5 ML VIAL.NEB (ATROVENT) INH SCH ×4 (03:06→19:23)
[2018-08-18] MEDS: MORPHINE 4 MG/ML INJ. SYRINGE IVP PRN ×4 (06:01→20:26)
[2018-08-18 08:00] VITALS: BP_SYST 136
[2018-08-18] MEDS: HEPARIN SODIUM,PORCINE 2000 UNITS/0.4 ML BOLUS IVP PRN (09:25)
[2018-08-18] MEDS: LEVOFLOXACIN 500 MG/D5W 100 ML IV SCH (11:09)
[2018-08-18 11:46] VITALS: BP_SYST 125
[2018-08-18] MEDS: NS IV SCH (12:23)
[2018-08-18] MEDS: AMIKACIN SULFATE IV SCH (12:23)
[2018-08-18 13:15] VITALS: BP_SYST 125
[2018-08-18 16:24] VITALS: BP_SYST 132
[2018-08-18 20:10] VITALS: BP_SYST 129
[2018-08-18] MEDS: MULTIVITS,CA,MINERALS/IRON/FA 1 TABLET PO SCH (21:50)
[2018-08-19 00:16] VITALS: BP_SYST 127
[2018-08-19] MEDS: MORPHINE 4 MG/ML INJ. SYRINGE IVP PRN ×5 (00:32→23:06)
[2018-08-19] MEDS: ALBUTEROL SULFATE 0.083% 2.5 MG/3 ML VIAL.NEB INH SCH ×4 (01:20→19:40)
[2018-08-19] MEDS: IPRATROPIUM BROM 0.5 MG/2.5 ML VIAL.NEB (ATROVENT) INH SCH ×4 (01:20→19:40)
[2018-08-19] MEDS: HEPARIN 25,000 UNITS in 250 ML PREMIX IV PRN ×3 (06:24→23:16)
[2018-08-19 06:28] LABS: CALCIUM 7.8 mg/dL (8.4-11.0); CREATININE 0.9 mg/dL (0.55-1.30); POTASSIUM 4.2 mmol/L (3.5-5.1)
[2018-08-19 07:04] LABS: BASOPHILS # (AUTO) 0.1 K/uL (0.0-0.2); BASOPHILS % (AUTO) 1.2 % (0.0-2.0); EOSINOPHILS # (AUTO) 0.2 K/uL (0.0-0.4); EOSINOPHILS % (AUTO) 2.4 % (0.0-4.0); HEMATOCRIT 24.6 % (36-54); HEMOGLOBIN 8.1 g/dL (14.0-18.0); LYMPHOCYTES % (AUTO) 21.6 % (20.5-51.5); MEAN CORPUSCULAR HEMOGLOBIN 26 pg (27-31); MEAN CORPUSCULAR HGB CONC 33 % (32-36); MEAN CORPUSCULAR VOLUME 79 fL (79.0-98.0); NEUTROPHILS # (AUTO) 5.8 K/uL (1.8-7.7); NEUTROPHILS % (AUTO) 63.8 % (40.0-70.0); PLATELET COUNT (AUTO) 257 K/uL (130-430); RED BLOOD CELL COUNT(AUTO) 3.13 MIL/uL (4.2-6.2); RED CELL DISTRIBUTION WIDTH 20.5 % (9.0-15.0); WHITE BLOOD COUNT (AUTO) 9.2 K/uL (4.8-10.8)
[2018-08-19 08:43] VITALS: BP_SYST 142
[2018-08-19] MEDS: MULTIVITS,CA,MINERALS/IRON/FA 1 TABLET PO SCH ×2 (08:45→20:44)
[2018-08-19] MEDS: LEVOFLOXACIN 500 MG/D5W 100 ML IV SCH (10:53)
[2018-08-19] MEDS: AMIKACIN SULFATE IV SCH (12:02)
[2018-08-19] MEDS: NS IV SCH (12:02)
[2018-08-19 12:04] VITALS: BP_SYST 146
[2018-08-19 16:04] VITALS: BP_SYST 135
[2018-08-19] MEDS ORDERED: fentaNYL CITRATE/PF 100 MCG/2 ML AMP IVP PRN ×2 (21:00)
[2018-08-19] MEDS ORDERED: ONDANSETRON HCL 4 MG/2 ML VIAL IVP PRN (21:00)
[2018-08-19] MEDS ORDERED: HEPARIN 25,000 UNITS/D5W 250ML 250 ML IV PRN (21:30)
[2018-08-19 22:00] VITALS: BP_SYST 134
[2018-08-19] MEDS ORDERED: HEPARIN SODIUM,PORCINE 2000 UNITS/0.4 ML BOLUS IVP PRN (23:00)
[2018-08-19] MEDS ORDERED: *HEPARIN PER PHARMACY XX PRN (23:00)
[2018-08-19] MEDS ORDERED: HEPARIN SODIUM,PORCINE 3000 UNITS/0.6 ML BOLUS IVP PRN (23:00)
[2018-08-20 00:28] VITALS: BP_SYST 140
[2018-08-20] MEDS: ALBUTEROL SULFATE 0.083% 2.5 MG/3 ML VIAL.NEB INH SCH ×5 (00:41→23:16)
[2018-08-20] MEDS: IPRATROPIUM BROM 0.5 MG/2.5 ML VIAL.NEB (ATROVENT) INH SCH ×5 (00:41→23:16)
[2018-08-20] MEDS: MORPHINE 4 MG/ML INJ. SYRINGE IVP PRN ×5 (03:10→20:44)
[2018-08-20] MEDS: HEPARIN 25,000 UNITS in 250 ML PREMIX IV PRN ×2 (06:03→18:00)
[2018-08-20 07:26] VITALS: BP_SYST 140
[2018-08-20] MEDS: MULTIVITS,CA,MINERALS/IRON/FA 1 TABLET PO SCH ×2 (08:35→20:43)
[2018-08-20] MEDS: LEVOFLOXACIN 500 MG/D5W 100 ML IV SCH (10:44)
[2018-08-20 11:12] VITALS: BP_SYST 142
[2018-08-20] MEDS: AMIKACIN SULFATE IV SCH (11:58)
[2018-08-20] MEDS: NS IV SCH (11:58)
[2018-08-20 12:16] LABS: ALBUMIN 1.6 g/dL (3.4-4.8); CALCIUM 8.2 mg/dL (8.4-11.0); CREATININE 0.97 mg/dL (0.55-1.30); POTASSIUM 3.8 mmol/L (3.5-5.1); TOTAL BILIRUBIN 0.4 mg/dL (0.0-1.0)
[2018-08-20 13:04] LABS: BASOPHILS % (AUTO) 0.7 % (0.0-2.0); EOSINOPHILS % (AUTO) 1.1 % (0.0-4.0); HEMATOCRIT 30.1 % (36-54); HEMOGLOBIN 9.7 g/dL (14.0-18.0); LYMPHOCYTES % (AUTO) 14.4 % (20.5-51.5); MEAN CORPUSCULAR HEMOGLOBIN 26 pg (27-31); MEAN CORPUSCULAR HGB CONC 32 % (32-36); MEAN CORPUSCULAR VOLUME 79 fL (79.0-98.0); MONOCYTES % (AUTO) 8.9 % (1.7-9.3); NEUTROPHILS % (AUTO) 74.9 % (40.0-70.0); PLATELET COUNT (AUTO) 342 K/uL (130-430); RED CELL DISTRIBUTION WIDTH 21.5 % (9.0-15.0); WHITE BLOOD COUNT (AUTO) 9.5 K/uL (4.8-10.8)
[2018-08-20 13:05] LABS: BASOPHILS # (AUTO) 0.1 K/uL (0.0-0.2); EOSINOPHILS # (AUTO) 0.1 K/uL (0.0-0.4); LYMPHOCYTES # (AUTO) 1.4 K/uL (1.0-5.5); MONOCYTES # (AUTO) 0.8 K/uL (0.0-1.0); NEUTROPHILS # (AUTO) 7.1 K/uL (1.8-7.7)
[2018-08-20 16:50] VITALS: BP_SYST 133
[2018-08-20 21:30] VITALS: BP_SYST 122
[2018-08-20 22:44] VITALS: BP_SYST 128
[2018-08-21] MEDS: MORPHINE 4 MG/ML INJ. SYRINGE IVP PRN ×4 (01:22→21:22)
[2018-08-21 06:11] LABS: CREATININE 0.97 mg/dL (0.55-1.30); POTASSIUM 3.9 mmol/L (3.5-5.1)
[2018-08-21 06:17] LABS: ALBUMIN 1.5 g/dL (3.4-4.8); TOTAL BILIRUBIN 0.4 mg/dL (0.0-1.0)
[2018-08-21 07:27] LABS: HEMATOCRIT 27.2 % (36-54); HEMOGLOBIN 8.8 g/dL (14.0-18.0); MEAN CORPUSCULAR HEMOGLOBIN 26 pg (27-31); MEAN CORPUSCULAR HGB CONC 32 % (32-36); MEAN CORPUSCULAR VOLUME 80 fL (79.0-98.0); PLATELET COUNT (AUTO) 330 K/uL (130-430); RED CELL DISTRIBUTION WIDTH 22.8 % (9.0-15.0)
[2018-08-21 07:28] LABS: BASOPHILS # (AUTO) 0.1 K/uL (0.0-0.2); BASOPHILS % (AUTO) 1.1 % (0.0-2.0); EOSINOPHILS # (AUTO) 0.2 K/uL (0.0-0.4); EOSINOPHILS % (AUTO) 2.5 % (0.0-4.0); LYMPHOCYTES # (AUTO) 1.8 K/uL (1.0-5.5); LYMPHOCYTES % (AUTO) 22.9 % (20.5-51.5); MONOCYTES # (AUTO) 0.9 K/uL (0.0-1.0); MONOCYTES % (AUTO) 11.8 % (1.7-9.3); NEUTROPHILS % (AUTO) 61.7 % (40.0-70.0)
[2018-08-21] MEDS: MULTIVITS,CA,MINERALS/IRON/FA 1 TABLET PO SCH ×2 (09:00→20:13)
[2018-08-21] MEDS: LEVOFLOXACIN 500 MG/D5W 100 ML IV SCH (09:00)
[2018-08-21] MEDS: ALBUTEROL SULFATE 0.083% 2.5 MG/3 ML VIAL.NEB INH SCH ×3 (11:04→19:21)
[2018-08-21] MEDS: IPRATROPIUM BROM 0.5 MG/2.5 ML VIAL.NEB (ATROVENT) INH SCH ×3 (11:04→19:22)
[2018-08-21] MEDS: NS IV SCH (12:07)
[2018-08-21] MEDS: AMIKACIN SULFATE IV SCH (12:07)
[2018-08-21 12:24] VITALS: BP_SYST 134
[2018-08-21 15:33] VITALS: BP_SYST 134
[2018-08-21 16:08] VITALS: BP_SYST 128
[2018-08-21 19:05] VITALS: BP_SYST 126
[2018-08-21] MEDS: metroNIDAZOLE 500 MG TABLET PO SCH (20:13)
[2018-08-21] MEDS: HEPARIN 25,000 UNITS in 250 ML PREMIX IV PRN (20:20)
[2018-08-22] MEDS: ALBUTEROL SULFATE 0.083% 2.5 MG/3 ML VIAL.NEB INH SCH ×4 (00:15→19:53)
[2018-08-22] MEDS: IPRATROPIUM BROM 0.5 MG/2.5 ML VIAL.NEB (ATROVENT) INH SCH ×4 (00:15→19:54)
[2018-08-22 01:12] VITALS: BP_SYST 138
[2018-08-22 07:18] LABS: ALBUMIN 1.6 g/dL (3.4-4.8); CREATININE 0.86 mg/dL (0.55-1.30); POTASSIUM 3.9 mmol/L (3.5-5.1); TOTAL BILIRUBIN 0.3 mg/dL (0.0-1.0)
[2018-08-22] MEDS: MORPHINE 4 MG/ML INJ. SYRINGE IVP PRN ×4 (07:47→19:54)
[2018-08-22 07:56] VITALS: BP_SYST 122
[2018-08-22] MEDS: metroNIDAZOLE 500 MG TABLET PO SCH ×2 (09:07→21:05)
[2018-08-22] MEDS: MULTIVITS,CA,MINERALS/IRON/FA 1 TABLET PO SCH ×2 (09:07→21:05)
[2018-08-22] MEDS: LEVOFLOXACIN 500 MG/D5W 100 ML IV SCH (09:07)
[2018-08-22 11:12] VITALS: BP_SYST 134
[2018-08-22] MEDS: NS IV SCH (13:41)
[2018-08-22] MEDS: AMIKACIN SULFATE IV SCH (13:41)
[2018-08-22 16:18] VITALS: BP_SYST 143
[2018-08-22 19:35] VITALS: BP_SYST 126
[2018-08-22] MEDS: HEPARIN 25,000 UNITS in 250 ML PREMIX IV PRN (21:04)
[2018-08-23 00:01] VITALS: BP_SYST 127
[2018-08-23] MEDS: MORPHINE 4 MG/ML INJ. SYRINGE IVP PRN ×6 (00:03→22:21)
[2018-08-23] MEDS: ALBUTEROL SULFATE 0.083% 2.5 MG/3 ML VIAL.NEB INH SCH ×4 (01:38→20:06)
[2018-08-23] MEDS: IPRATROPIUM BROM 0.5 MG/2.5 ML VIAL.NEB (ATROVENT) INH SCH ×4 (01:38→20:06)
[2018-08-23 08:00] VITALS: BP_SYST 123
[2018-08-23] MEDS: metroNIDAZOLE 500 MG TABLET PO SCH ×2 (08:16→20:22)
[2018-08-23] MEDS: MULTIVITS,CA,MINERALS/IRON/FA 1 TABLET PO SCH ×2 (08:16→20:22)
[2018-08-23 09:08] LABS: HEMATOCRIT 28.1 % (36-54); HEMOGLOBIN 9.1 g/dL (14.0-18.0); MEAN CORPUSCULAR VOLUME 80 fL (79.0-98.0); RED BLOOD CELL COUNT(AUTO) 3.54 MIL/uL (4.2-6.2); WHITE BLOOD COUNT (AUTO) 6.2 K/uL (4.8-10.8)
[2018-08-23 09:09] LABS: BASOPHILS # (AUTO) 0.1 K/uL (0.0-0.2); BASOPHILS % (AUTO) 0.9 % (0.0-2.0); EOSINOPHILS # (AUTO) 0.3 K/uL (0.0-0.4); EOSINOPHILS % (AUTO) 4.2 % (0.0-4.0); LYMPHOCYTES # (AUTO) 1.3 K/uL (1.0-5.5); LYMPHOCYTES % (AUTO) 21.2 % (20.5-51.5); MEAN CORPUSCULAR HEMOGLOBIN 26 pg (27-31); MEAN CORPUSCULAR HGB CONC 32 % (32-36); MONOCYTES # (AUTO) 0.6 K/uL (0.0-1.0); MONOCYTES % (AUTO) 9.7 % (1.7-9.3); PLATELET COUNT (AUTO) 313 K/uL (130-430); RED CELL DISTRIBUTION WIDTH 23.5 % (9.0-15.0)
[2018-08-23 09:12] LABS: CALCIUM 8.4 mg/dL (8.4-11.0); CREATININE 0.84 mg/dL (0.55-1.30); POTASSIUM 4.7 mmol/L (3.5-5.1)
[2018-08-23 12:30] VITALS: BP_SYST 135
[2018-08-23 16:36] VITALS: BP_SYST 120
[2018-08-23 19:45] VITALS: BP_SYST 150
[2018-08-23] MEDS: HEPARIN 25,000 UNITS in 250 ML PREMIX IV PRN (22:25)
[2018-08-24] VITALS: BP_SYST 126
[2018-08-24] MEDS: ALBUTEROL SULFATE 0.083% 2.5 MG/3 ML VIAL.NEB INH SCH ×4 (01:16→20:48)
[2018-08-24] MEDS: IPRATROPIUM BROM 0.5 MG/2.5 ML VIAL.NEB (ATROVENT) INH SCH ×4 (01:16→20:48)
[2018-08-24] MEDS: MORPHINE 4 MG/ML INJ. SYRINGE IVP PRN ×5 (02:41→20:45)
[2018-08-24 07:35] VITALS: BP_SYST 126
[2018-08-24] MEDS: MULTIVITS,CA,MINERALS/IRON/FA 1 TABLET PO SCH ×2 (08:47→20:47)
[2018-08-24] MEDS: metroNIDAZOLE 500 MG TABLET PO SCH ×2 (08:47→20:47)
[2018-08-24] MEDS ORDERED: PHYTONADIONE 10 MG/ML AMP SUBCUT ONE (11:30)
[2018-08-24 12:00] LABS: INR 1.2 (0.80-1.20); PROTHROMBIN TIME 12.6 SECS (9.5-12.5)
[2018-08-24 12:02] VITALS: BP_SYST 136
[2018-08-24] MEDS ORDERED: SODIUM CHLORIDE 500 MG TABLET PO SCH (15:00)
[2018-08-24 16:06] VITALS: BP_SYST 117
[2018-08-24] MEDS: SODIUM CHLORIDE 500 MG TABLET PO SCH ×2 (17:01→20:46)
[2018-08-24 19:05] VITALS: BP_SYST 112
[2018-08-25] MEDS: HEPARIN 25,000 UNITS in 250 ML PREMIX IV PRN (00:33)
[2018-08-25] MEDS: MORPHINE 4 MG/ML INJ. SYRINGE IVP PRN ×8 (00:38→23:50)
[2018-08-25 00:55] VITALS: BP_SYST 128
[2018-08-25] MEDS: ALBUTEROL SULFATE 0.083% 2.5 MG/3 ML VIAL.NEB INH SCH ×4 (01:00→20:14)
[2018-08-25] MEDS: IPRATROPIUM BROM 0.5 MG/2.5 ML VIAL.NEB (ATROVENT) INH SCH ×4 (01:00→20:13)
[2018-08-25 07:25] VITALS: BP_SYST 118
[2018-08-25 07:37] LABS: CALCIUM 8.4 mg/dL (8.4-11.0); CREATININE 0.9 mg/dL (0.55-1.30); POTASSIUM 4.4 mmol/L (3.5-5.1)
[2018-08-25] MEDS: metroNIDAZOLE 500 MG TABLET PO SCH ×4 (09:29→21:23)
[2018-08-25] MEDS: MULTIVITS,CA,MINERALS/IRON/FA 1 TABLET PO SCH ×2 (09:29→21:23)
[2018-08-25] MEDS: SODIUM CHLORIDE 500 MG TABLET PO SCH ×4 (09:29→21:23)
[2018-08-25] MEDS ORDERED: METOCLOPRAMIDE HCL 10 MG/2 ML VIAL IVP PRN (09:45)
[2018-08-25] MEDS ORDERED: ONDANSETRON HCL 4 MG/2 ML VIAL IVP PRN (09:45)
[2018-08-25] MEDS ORDERED: ONDANSETRON HCL 4 MG/2 ML VIAL ONE (09:57)
[2018-08-25 10:05] LABS: HEMATOCRIT 30.9 % (36-54); HEMOGLOBIN 9.9 g/dL (14.0-18.0); RED BLOOD CELL COUNT(AUTO) 3.87 MIL/uL (4.2-6.2); WHITE BLOOD COUNT (AUTO) 5.8 K/uL (4.8-10.8)
[2018-08-25 10:06] LABS: MEAN CORPUSCULAR HEMOGLOBIN 26 pg (27-31); MEAN CORPUSCULAR HGB CONC 32 % (32-36); MEAN CORPUSCULAR VOLUME 80 fL (79.0-98.0); PLATELET COUNT (AUTO) 385 K/uL (130-430); RED CELL DISTRIBUTION WIDTH 23.4 % (9.0-15.0)
[2018-08-25 10:07] LABS: BASOPHILS # (AUTO) 0.1 K/uL (0.0-0.2); BASOPHILS % (AUTO) 1.2 % (0.0-2.0); EOSINOPHILS # (AUTO) 0.2 K/uL (0.0-0.4); EOSINOPHILS % (AUTO) 3.6 % (0.0-4.0); LYMPHOCYTES # (AUTO) 1.3 K/uL (1.0-5.5); LYMPHOCYTES % (AUTO) 22.4 % (20.5-51.5); MONOCYTES # (AUTO) 0.6 K/uL (0.0-1.0); MONOCYTES % (AUTO) 10.6 % (1.7-9.3); NEUTROPHILS # (AUTO) 3.6 K/uL (1.8-7.7); NEUTROPHILS % (AUTO) 62.2 % (40.0-70.0)
[2018-08-25] MEDS ORDERED: PHYTONADIONE 10 MG/ML AMP SUBCUT ONE (10:45)
[2018-08-25 11:29] VITALS: BP_SYST 131
[2018-08-25 15:39] VITALS: BP_SYST 117
[2018-08-25 20:00] VITALS: BP_SYST 119
[2018-08-26] VITALS (15 sets, daily range): BP systolic 119–178
[2018-08-26] MEDS: IPRATROPIUM BROM 0.5 MG/2.5 ML VIAL.NEB (ATROVENT) INH SCH ×4 (01:18→19:40)
[2018-08-26] MEDS: ALBUTEROL SULFATE 0.083% 2.5 MG/3 ML VIAL.NEB INH SCH ×4 (01:18→19:40)
[2018-08-26] MEDS: MORPHINE 4 MG/ML INJ. SYRINGE IVP PRN ×3 (04:40→21:18)
[2018-08-26 07:20] LABS: INR 1.3 (0.80-1.20); PROTHROMBIN TIME 13.3 SECS (9.5-12.5)
[2018-08-26 07:27] LABS: CALCIUM 8.6 mg/dL (8.4-11.0); CREATININE 0.88 mg/dL (0.55-1.30); POTASSIUM 4.3 mmol/L (3.5-5.1)
[2018-08-26] MEDS: metroNIDAZOLE 500 MG TABLET PO SCH ×4 (07:41→20:54)
[2018-08-26] MEDS: MULTIVITS,CA,MINERALS/IRON/FA 1 TABLET PO SCH ×2 (07:41→20:54)
[2018-08-26] MEDS: SODIUM CHLORIDE 500 MG TABLET PO SCH ×4 (07:41→20:54)
[2018-08-26 08:02] LABS: RED BLOOD CELL COUNT(AUTO) 3.55 MIL/uL (4.2-6.2); WHITE BLOOD COUNT (AUTO) 5.8 K/uL (4.8-10.8)
[2018-08-26 08:03] LABS: MEAN CORPUSCULAR HEMOGLOBIN 25 pg (27-31); MEAN CORPUSCULAR HGB CONC 32 % (32-36); MEAN CORPUSCULAR VOLUME 79 fL (79.0-98.0); PLATELET COUNT (AUTO) 326 K/uL (130-430)
[2018-08-26 08:04] LABS: BASOPHILS % (AUTO) 1.3 % (0.0-2.0); EOSINOPHILS # (AUTO) 0.3 K/uL (0.0-0.4); EOSINOPHILS % (AUTO) 4.4 % (0.0-4.0); LYMPHOCYTES # (AUTO) 1.2 K/uL (1.0-5.5); LYMPHOCYTES % (AUTO) 20.2 % (20.5-51.5); MONOCYTES # (AUTO) 0.7 K/uL (0.0-1.0); MONOCYTES % (AUTO) 12.7 % (1.7-9.3); NEUTROPHILS # (AUTO) 3.6 K/uL (1.8-7.7); NEUTROPHILS % (AUTO) 61.4 % (40.0-70.0); RED CELL DISTRIBUTION WIDTH 23.5 % (9.0-15.0)
[2018-08-26 08:05] LABS: BASOPHILS # (AUTO) 0.1 K/uL (0.0-0.2)
[2018-08-26] MEDS ORDERED: KCL 20 mEq in D5/0.45NS 1000mL 1,000 ML IV SCH (12:30)
[2018-08-26] MEDS ORDERED: MORPHINE 4 MG/ML INJ. SYRINGE IVP PRN (12:30)
[2018-08-26] MEDS ORDERED: CIPROFLOXACIN LACT 400 MG/D5W 200 ML IV ONE (12:30)
[2018-08-26] MEDS ORDERED: HYDROcodone/ACETAMIN 5-325 MG TAB (NORCO/ VICODIN) PO PRN (12:30)
[2018-08-26 13:17] LABS: CALCIUM 8.4 mg/dL (8.4-11.0); CREATININE 0.86 mg/dL (0.55-1.30); POTASSIUM 4.2 mmol/L (3.5-5.1)
[2018-08-26 13:18] LABS: HEMATOCRIT 27.9 % (36-54); HEMOGLOBIN 8.9 g/dL (14.0-18.0); MEAN CORPUSCULAR HEMOGLOBIN 26 pg (27-31); MEAN CORPUSCULAR HGB CONC 32 % (32-36); MEAN CORPUSCULAR VOLUME 80 fL (79.0-98.0); NEUTROPHILS % (AUTO) 80.1 % (40.0-70.0); PLATELET COUNT (AUTO) 299 K/uL (130-430); RED BLOOD CELL COUNT(AUTO) 3.49 MIL/uL (4.2-6.2); RED CELL DISTRIBUTION WIDTH 23.6 % (9.0-15.0); WHITE BLOOD COUNT (AUTO) 7.3 K/uL (4.8-10.8)
[2018-08-26 13:19] LABS: BASOPHILS # (AUTO) 0.1 K/uL (0.0-0.2); BASOPHILS % (AUTO) 1.1 % (0.0-2.0); EOSINOPHILS # (AUTO) 0.1 K/uL (0.0-0.4); EOSINOPHILS % (AUTO) 1.1 % (0.0-4.0); LYMPHOCYTES # (AUTO) 0.8 K/uL (1.0-5.5); LYMPHOCYTES % (AUTO) 10.7 % (20.5-51.5); MONOCYTES # (AUTO) 0.5 K/uL (0.0-1.0); NEUTROPHILS # (AUTO) 5.9 K/uL (1.8-7.7)
[2018-08-26] MEDS: D5NS 1,000 ML IV SCH (17:34)
[2018-08-26] MEDS: HYDROcodone/ACETAMIN 10-325 MG TAB PO PRN (17:36)
[2018-08-26 19:50] LABS: INR 1.2 (0.80-1.20); PROTHROMBIN TIME 12.6 SECS (9.5-12.5)
[2018-08-27] VITALS (25 sets, daily range): BP systolic 112–165
[2018-08-27] MEDS: MORPHINE 4 MG/ML INJ. SYRINGE IVP PRN ×6 (00:38→20:06)
[2018-08-27] MEDS: IPRATROPIUM BROM 0.5 MG/2.5 ML VIAL.NEB (ATROVENT) INH SCH ×4 (00:50→19:34)
[2018-08-27] MEDS: ALBUTEROL SULFATE 0.083% 2.5 MG/3 ML VIAL.NEB INH SCH ×4 (00:50→19:34)
[2018-08-27] MEDS: D5NS 1,000 ML IV SCH ×2 (03:33→13:15)
[2018-08-27 07:17] LABS: HEMOGLOBIN 9.1 g/dL (14.0-18.0); RED BLOOD CELL COUNT(AUTO) 3.55 MIL/uL (4.2-6.2); WHITE BLOOD COUNT (AUTO) 9.6 K/uL (4.8-10.8)
[2018-08-27 07:18] LABS: EOSINOPHILS % (AUTO) 0.9 % (0.0-4.0); HEMATOCRIT 28.4 % (36-54); LYMPHOCYTES % (AUTO) 9.8 % (20.5-51.5); MEAN CORPUSCULAR HEMOGLOBIN 26 pg (27-31); MEAN CORPUSCULAR HGB CONC 32 % (32-36); MEAN CORPUSCULAR VOLUME 80 fL (79.0-98.0); MONOCYTES % (AUTO) 12.3 % (1.7-9.3); NEUTROPHILS % (AUTO) 76.3 % (40.0-70.0); RED CELL DISTRIBUTION WIDTH 23.4 % (9.0-15.0)
[2018-08-27 07:19] LABS: BASOPHILS # (AUTO) 0.1 K/uL (0.0-0.2); BASOPHILS % (AUTO) 0.7 % (0.0-2.0); EOSINOPHILS # (AUTO) 0.1 K/uL (0.0-0.4); LYMPHOCYTES # (AUTO) 0.9 K/uL (1.0-5.5); MONOCYTES # (AUTO) 1.2 K/uL (0.0-1.0); NEUTROPHILS # (AUTO) 7.3 K/uL (1.8-7.7)
[2018-08-27 07:25] LABS: CALCIUM 8.2 mg/dL (8.4-11.0); CREATININE 0.74 mg/dL (0.55-1.30); POTASSIUM 4.1 mmol/L (3.5-5.1)
[2018-08-27 08:40] LABS: PLATELET COUNT (AUTO) 281 K/uL (130-430)
[2018-08-27] MEDS: metroNIDAZOLE 500 MG TABLET PO SCH ×4 (08:42→20:40)
[2018-08-27] MEDS: MULTIVITS,CA,MINERALS/IRON/FA 1 TABLET PO SCH ×2 (08:42→20:40)
[2018-08-27] MEDS: CIPROFLOXACIN LACT 400 MG/D5W 200 ML IV SCH (08:43)
[2018-08-27] MEDS: SODIUM CHLORIDE 500 MG TABLET PO SCH ×4 (09:03→20:40)
[2018-08-27] MEDS ORDERED: HEPARIN SODIUM,PORCINE 5000 UNITS/ML VIAL IVP ONE (10:45)
[2018-08-27] MEDS: HEPARIN 25,000 UNITS in 250 ML PREMIX IV PRN (11:19)
[2018-08-27] MEDS ORDERED: ALBUMIN HUMAN 5% 500 ML IV ONE (11:30)
[2018-08-27] MEDS: HYDROcodone/ACETAMIN 10-325 MG TAB PO PRN ×2 (13:09→14:45)
[2018-08-27] MEDS ORDERED: MEGESTROL ACETATE 400 MG/10 ML UDC PO ONE (13:30)
[2018-08-27] MEDS ORDERED: METOPROLOL TARTRATE 50 MG TABLET PO ONE (18:15)
[2018-08-27] MEDS ORDERED: NACL 0.9% 2,500 ML IV ONE (20:15)
[2018-08-27] MEDS ORDERED: ACETAMINOPHEN 325 MG TABLET ONE (20:44)
[2018-08-27] MEDS: ACETAMINOPHEN 325 MG TABLET PO PRN (20:51)
[2018-08-27] MEDS ORDERED: MIRTAZAPINE 15 MG TABLET PO SCH (21:00)
[2018-08-27] MEDS ORDERED: VANCOMYCIN HCL 1 GM/NS PREMIX 250 ML IV ONE (21:00)
[2018-08-27] MEDS ORDERED: VANCOMYCIN HCL 1000 MG/VIAL IV ONE (21:01)
[2018-08-28] VITALS (25 sets, daily range): BP systolic 109–145
[2018-08-28] MEDS: ALBUTEROL SULFATE 0.083% 2.5 MG/3 ML VIAL.NEB INH SCH ×4 (00:04→20:35)
[2018-08-28] MEDS: IPRATROPIUM BROM 0.5 MG/2.5 ML VIAL.NEB (ATROVENT) INH SCH ×4 (00:04→20:36)
[2018-08-28] MEDS: HYDROcodone/ACETAMIN 10-325 MG TAB PO PRN ×2 (02:52→17:07)
[2018-08-28 07:26] LABS: CALCIUM 7.9 mg/dL (8.4-11.0); CREATININE 0.78 mg/dL (0.55-1.30); POTASSIUM 3.9 mmol/L (3.5-5.1)
[2018-08-28 07:34] LABS: HEMATOCRIT 26.4 % (36-54); HEMOGLOBIN 8.5 g/dL (14.0-18.0); MEAN CORPUSCULAR HEMOGLOBIN 26 pg (27-31); MEAN CORPUSCULAR VOLUME 80 fL (79.0-98.0); RED BLOOD CELL COUNT(AUTO) 3.29 MIL/uL (4.2-6.2); WHITE BLOOD COUNT (AUTO) 11.6 K/uL (4.8-10.8)
[2018-08-28 07:35] LABS: BASOPHILS # (AUTO) 0.1 K/uL (0.0-0.2); BASOPHILS % (AUTO) 0.8 % (0.0-2.0); EOSINOPHILS # (AUTO) 0.3 K/uL (0.0-0.4); EOSINOPHILS % (AUTO) 2.6 % (0.0-4.0); LYMPHOCYTES # (AUTO) 1.7 K/uL (1.0-5.5); LYMPHOCYTES % (AUTO) 14.7 % (20.5-51.5); MEAN CORPUSCULAR HGB CONC 32 % (32-36); MONOCYTES # (AUTO) 1.2 K/uL (0.0-1.0); MONOCYTES % (AUTO) 10.3 % (1.7-9.3); NEUTROPHILS # (AUTO) 8.3 K/uL (1.8-7.7); NEUTROPHILS % (AUTO) 71.6 % (40.0-70.0); PLATELET COUNT (AUTO) 226 K/uL (130-430); RED CELL DISTRIBUTION WIDTH 23.6 % (9.0-15.0)
[2018-08-28 07:37] LABS: ALBUMIN 1.5 g/dL (3.4-4.8); TOTAL BILIRUBIN 0.4 mg/dL (0.0-1.0)
[2018-08-28] MEDS: MEGESTROL ACETATE 400 MG/10 ML UDC PO SCH (09:01)
[2018-08-28] MEDS: SODIUM CHLORIDE 500 MG TABLET PO SCH ×4 (09:02→21:24)
[2018-08-28] MEDS: metroNIDAZOLE 500 MG TABLET PO SCH ×3 (09:02→17:06)
[2018-08-28] MEDS: METOPROLOL TARTRATE 50 MG TABLET PO SCH ×2 (09:03→21:24)
[2018-08-28] MEDS: MULTIVITS,CA,MINERALS/IRON/FA 1 TABLET PO SCH ×2 (09:07→21:23)
[2018-08-28] MEDS: CIPROFLOXACIN LACT 400 MG/D5W 200 ML IV SCH (09:13)
[2018-08-28] MEDS: MORPHINE 4 MG/ML INJ. SYRINGE IVP PRN ×3 (09:24→21:46)
[2018-08-28] MEDS: HEPARIN 25,000 UNITS in 250 ML PREMIX IV PRN (10:02)
[2018-08-28] MEDS: VANCOMYCIN HCL 1,250 MG in NS 250 ML IV SCH ×2 (10:48→21:24)
[2018-08-28] MEDS: IRON SUCROSE COMPLEX 100 MG in NS 50 ML IV SCH (19:16)
[2018-08-28] MEDS ORDERED: MIRTAZAPINE 15 MG TABLET PO SCH (21:00)
[2018-08-28] MEDS: DOCUSATE SODIUM 250 MG CAPSULE PO SCH (21:23)
[2018-08-29] VITALS (18 sets, daily range): BP systolic 100–145
[2018-08-29] MEDS: IPRATROPIUM BROM 0.5 MG/2.5 ML VIAL.NEB (ATROVENT) INH SCH ×4 (01:20→20:13)
[2018-08-29] MEDS: ALBUTEROL SULFATE 0.083% 2.5 MG/3 ML VIAL.NEB INH SCH ×4 (01:20→20:12)
[2018-08-29] MEDS: MORPHINE 4 MG/ML INJ. SYRINGE IVP PRN ×4 (03:52→21:37)
[2018-08-29 06:05] LABS: HEMATOCRIT 30.2 % (36-54); HEMOGLOBIN 9.9 g/dL (14.0-18.0); MEAN CORPUSCULAR HEMOGLOBIN 26 pg (27-31); MEAN CORPUSCULAR HGB CONC 33 % (32-36); MEAN CORPUSCULAR VOLUME 80 fL (79.0-98.0); RED BLOOD CELL COUNT(AUTO) 3.75 MIL/uL (4.2-6.2); RED CELL DISTRIBUTION WIDTH 22.5 % (9.0-15.0); WHITE BLOOD COUNT (AUTO) 11.9 K/uL (4.8-10.8)
[2018-08-29 06:06] LABS: BASOPHILS # (AUTO) 0.1 K/uL (0.0-0.2); BASOPHILS % (AUTO) 0.9 % (0.0-2.0); EOSINOPHILS # (AUTO) 0.4 K/uL (0.0-0.4); EOSINOPHILS % (AUTO) 3.3 % (0.0-4.0); LYMPHOCYTES # (AUTO) 1.8 K/uL (1.0-5.5); LYMPHOCYTES % (AUTO) 15.1 % (20.5-51.5); MONOCYTES # (AUTO) 1.3 K/uL (0.0-1.0); MONOCYTES % (AUTO) 11.1 % (1.7-9.3); NEUTROPHILS # (AUTO) 8.3 K/uL (1.8-7.7); NEUTROPHILS % (AUTO) 69.6 % (40.0-70.0); PLATELET COUNT (AUTO) 227 K/uL (130-430)
[2018-08-29 06:20] LABS: ALBUMIN 1.6 g/dL (3.4-4.8); CALCIUM 8.3 mg/dL (8.4-11.0); CREATININE 0.73 mg/dL (0.55-1.30); POTASSIUM 3.5 mmol/L (3.5-5.1); TOTAL BILIRUBIN 0.4 mg/dL (0.0-1.0)
[2018-08-29] MEDS: MULTIVITS,CA,MINERALS/IRON/FA 1 TABLET PO SCH ×2 (08:21→21:06)
[2018-08-29] MEDS: MEGESTROL ACETATE 400 MG/10 ML UDC PO SCH (08:21)
[2018-08-29] MEDS: DOCUSATE SODIUM 250 MG CAPSULE PO SCH ×2 (08:21→21:05)
[2018-08-29] MEDS: CIPROFLOXACIN LACT 400 MG/D5W 200 ML IV SCH (08:22)
[2018-08-29] MEDS: METOPROLOL TARTRATE 50 MG TABLET PO SCH ×2 (08:22→21:06)
[2018-08-29] MEDS: SODIUM CHLORIDE 500 MG TABLET PO SCH ×4 (10:59→21:05)
[2018-08-29] MEDS: VANCOMYCIN HCL 1,250 MG in NS 250 ML IV SCH ×2 (10:59→23:05)
[2018-08-29] MEDS: HEPARIN 25,000 UNITS in 250 ML PREMIX IV PRN (12:02)
[2018-08-29] MEDS: HYDROcodone/ACETAMIN 10-325 MG TAB PO PRN (14:01)
[2018-08-29] MEDS: IRON SUCROSE COMPLEX 100 MG in NS 50 ML IV SCH (17:29)
[2018-08-29] MEDS: MIRTAZAPINE 15 MG TABLET PO SCH (21:06)
[2018-08-30 00:37] VITALS: BP_SYST 146
[2018-08-30] MEDS: IPRATROPIUM BROM 0.5 MG/2.5 ML VIAL.NEB (ATROVENT) INH SCH ×5 (01:27→23:51)
[2018-08-30] MEDS: ALBUTEROL SULFATE 0.083% 2.5 MG/3 ML VIAL.NEB INH SCH ×5 (01:28→23:51)
[2018-08-30] MEDS: MORPHINE 4 MG/ML INJ. SYRINGE IVP PRN ×5 (01:45→20:43)
[2018-08-30 07:06] LABS: CALCIUM 8.5 mg/dL (8.4-11.0); CREATININE 0.76 mg/dL (0.55-1.30); POTASSIUM 3.7 mmol/L (3.5-5.1)
[2018-08-30 07:29] LABS: HEMATOCRIT 31.6 % (36-54); HEMOGLOBIN 10.5 g/dL (14.0-18.0); MEAN CORPUSCULAR HEMOGLOBIN 27 pg (27-31); MEAN CORPUSCULAR HGB CONC 33 % (32-36); MEAN CORPUSCULAR VOLUME 81 fL (79.0-98.0); RED BLOOD CELL COUNT(AUTO) 3.91 MIL/uL (4.2-6.2); RED CELL DISTRIBUTION WIDTH 22.7 % (9.0-15.0); WHITE BLOOD COUNT (AUTO) 10.7 K/uL (4.8-10.8)
[2018-08-30 07:30] LABS: BASOPHILS # (AUTO) 0.1 K/uL (0.0-0.2); BASOPHILS % (AUTO) 1.4 % (0.0-2.0); EOSINOPHILS # (AUTO) 0.3 K/uL (0.0-0.4); LYMPHOCYTES # (AUTO) 1.6 K/uL (1.0-5.5); LYMPHOCYTES % (AUTO) 14.7 % (20.5-51.5); MONOCYTES # (AUTO) 1.1 K/uL (0.0-1.0); NEUTROPHILS # (AUTO) 7.6 K/uL (1.8-7.7); NEUTROPHILS % (AUTO) 70.9 % (40.0-70.0); PLATELET COUNT (AUTO) 272 K/uL (130-430)
[2018-08-30 08:00] VITALS: BP_SYST 114
[2018-08-30] MEDS: HEPARIN 25,000 UNITS in 250 ML PREMIX IV PRN ×2 (08:09→15:00)
[2018-08-30] MEDS: MULTIVITS,CA,MINERALS/IRON/FA 1 TABLET PO SCH ×2 (08:10→20:44)
[2018-08-30] MEDS: SODIUM CHLORIDE 500 MG TABLET PO SCH ×4 (08:10→20:43)
[2018-08-30] MEDS: CIPROFLOXACIN LACT 400 MG/D5W 200 ML IV SCH (08:10)
[2018-08-30] MEDS: DOCUSATE SODIUM 250 MG CAPSULE PO SCH ×2 (08:10→20:44)
[2018-08-30] MEDS: MEGESTROL ACETATE 400 MG/10 ML UDC PO SCH (08:10)
[2018-08-30] MEDS: METOPROLOL TARTRATE 50 MG TABLET PO SCH ×2 (08:11→20:45)
[2018-08-30] MEDS: VANCOMYCIN HCL 1,250 MG in NS 250 ML IV SCH ×2 (09:59→22:27)
[2018-08-30 11:30] VITALS: BP_SYST 104
[2018-08-30 16:32] VITALS: BP_SYST 114
[2018-08-30 20:30] VITALS: BP_SYST 114
[2018-08-30] MEDS: MIRTAZAPINE 15 MG TABLET PO SCH (20:44)
[2018-08-31] MEDS: MORPHINE 4 MG/ML INJ. SYRINGE IVP PRN ×5 (00:36→23:58)
[2018-08-31 03:36] VITALS: BP_SYST 142
[2018-08-31] MEDS: HYDROcodone/ACETAMIN 10-325 MG TAB PO PRN ×3 (04:18→21:49)
[2018-08-31] MEDS: IPRATROPIUM BROM 0.5 MG/2.5 ML VIAL.NEB (ATROVENT) INH SCH ×2 (07:15→19:17)
[2018-08-31] MEDS: ALBUTEROL SULFATE 0.083% 2.5 MG/3 ML VIAL.NEB INH SCH ×2 (07:15→19:17)
[2018-08-31 07:32] LABS: CALCIUM 8.4 mg/dL (8.4-11.0); CREATININE 0.76 mg/dL (0.55-1.30); POTASSIUM 3.6 mmol/L (3.5-5.1)
[2018-08-31 08:02] LABS: HEMATOCRIT 29.7 % (36-54); HEMOGLOBIN 9.8 g/dL (14.0-18.0); MEAN CORPUSCULAR HEMOGLOBIN 27 pg (27-31); MEAN CORPUSCULAR HGB CONC 33 % (32-36); MEAN CORPUSCULAR VOLUME 81 fL (79.0-98.0); PLATELET COUNT (AUTO) 270 K/uL (130-430); RED BLOOD CELL COUNT(AUTO) 3.66 MIL/uL (4.2-6.2); WHITE BLOOD COUNT (AUTO) 10.9 K/uL (4.8-10.8)
[2018-08-31 08:03] LABS: BASOPHILS % (AUTO) 1.1 % (0.0-2.0); EOSINOPHILS # (AUTO) 0.3 K/uL (0.0-0.4); EOSINOPHILS % (AUTO) 2.5 % (0.0-4.0); LYMPHOCYTES # (AUTO) 1.9 K/uL (1.0-5.5); LYMPHOCYTES % (AUTO) 17.8 % (20.5-51.5); NEUTROPHILS # (AUTO) 7.6 K/uL (1.8-7.7); NEUTROPHILS % (AUTO) 69.6 % (40.0-70.0); RED CELL DISTRIBUTION WIDTH 22.2 % (9.0-15.0)
[2018-08-31 08:04] LABS: BASOPHILS # (AUTO) 0.1 K/uL (0.0-0.2)
[2018-08-31 08:11] VITALS: BP_SYST 117
[2018-08-31] MEDS: MEGESTROL ACETATE 400 MG/10 ML UDC PO SCH (08:27)
[2018-08-31] MEDS: CIPROFLOXACIN LACT 400 MG/D5W 200 ML IV SCH (08:27)
[2018-08-31] MEDS: SODIUM CHLORIDE 500 MG TABLET PO SCH ×4 (08:27→20:13)
[2018-08-31] MEDS: MULTIVITS,CA,MINERALS/IRON/FA 1 TABLET PO SCH ×2 (08:28→20:13)
[2018-08-31] MEDS: METOPROLOL TARTRATE 50 MG TABLET PO SCH ×2 (08:28→20:20)
[2018-08-31] MEDS: DOCUSATE SODIUM 250 MG CAPSULE PO SCH ×2 (08:28→20:13)
[2018-08-31] MEDS: VANCOMYCIN HCL 1,250 MG in NS 250 ML IV SCH ×2 (09:44→21:46)
[2018-08-31 12:14] VITALS: BP_SYST 123
[2018-08-31] MEDS ORDERED: INSULIN REGULAR, HUMAN 100 UNITS/ML, 10 ML VIAL (novoLIN R) SUBCUT PRN (13:45)
[2018-08-31] MEDS ORDERED: DEXTROSE 50% JECT 50 ML DISP.SYRIN IVP PRN (13:45)
[2018-08-31] MEDS ORDERED: *TPN PER PHARMACY XX PRN (13:45)
[2018-08-31] MEDS ORDERED: POTASSIUM CHLORIDE IV SCH (14:00)
[2018-08-31] MEDS ORDERED: D10W IV SCH (14:00)
[2018-08-31] MEDS: MVI IV SCH (14:46)
[2018-08-31] MEDS: D10W IV SCH (14:46)
[2018-08-31 15:08] VITALS: BP_SYST 117
[2018-08-31] MEDS: HEPARIN 25,000 UNITS in 250 ML PREMIX IV PRN (18:21)
[2018-08-31 20:00] VITALS: BP_SYST 120
[2018-08-31] MEDS: MIRTAZAPINE 15 MG TABLET PO SCH (20:13)
[2018-09-01] MEDS: IPRATROPIUM BROM 0.5 MG/2.5 ML VIAL.NEB (ATROVENT) INH SCH ×4 (00:32→19:20)
[2018-09-01] MEDS: ALBUTEROL SULFATE 0.083% 2.5 MG/3 ML VIAL.NEB INH SCH ×4 (00:32→19:20)
[2018-09-01 00:50] VITALS: BP_SYST 143
[2018-09-01] MEDS: HYDROcodone/ACETAMIN 10-325 MG TAB PO PRN ×4 (02:19→14:43)
[2018-09-01 07:43] LABS: ALBUMIN 1.4 g/dL (3.4-4.8); CALCIUM 8.3 mg/dL (8.4-11.0); CREATININE 0.85 mg/dL (0.55-1.30); PHOSPHORUS 3.1 mg/dL (2.7-4.5); POTASSIUM 3.8 mmol/L (3.5-5.1); TOTAL BILIRUBIN 0.4 mg/dL (0.0-1.0)
[2018-09-01 08:02] VITALS: BP_SYST 143
[2018-09-01] MEDS: CIPROFLOXACIN LACT 400 MG/D5W 200 ML IV SCH (08:08)
[2018-09-01] MEDS: DOCUSATE SODIUM 250 MG CAPSULE PO SCH ×2 (08:08→21:00)
[2018-09-01] MEDS: METOPROLOL TARTRATE 50 MG TABLET PO SCH ×2 (08:08→21:18)
[2018-09-01] MEDS: MEGESTROL ACETATE 400 MG/10 ML UDC PO SCH (08:08)
[2018-09-01] MEDS: MULTIVITS,CA,MINERALS/IRON/FA 1 TABLET PO SCH ×2 (08:09→21:18)
[2018-09-01] MEDS: ACETAMINOPHEN 325 MG TABLET PO PRN (08:09)
[2018-09-01] MEDS: SODIUM CHLORIDE 500 MG TABLET PO SCH ×4 (08:09→21:34)
[2018-09-01 08:46] LABS: HEMOGLOBIN 9.7 g/dL (14.0-18.0); MEAN CORPUSCULAR HEMOGLOBIN 26 pg (27-31); MEAN CORPUSCULAR HGB CONC 32 % (32-36); MEAN CORPUSCULAR VOLUME 81 fL (79.0-98.0); RED BLOOD CELL COUNT(AUTO) 3.68 MIL/uL (4.2-6.2)
[2018-09-01 08:47] LABS: BASOPHILS # (AUTO) 0.1 K/uL (0.0-0.2); BASOPHILS % (AUTO) 0.6 % (0.0-2.0); EOSINOPHILS # (AUTO) 0.4 K/uL (0.0-0.4); EOSINOPHILS % (AUTO) 4.1 % (0.0-4.0); LYMPHOCYTES # (AUTO) 1.7 K/uL (1.0-5.5); LYMPHOCYTES % (AUTO) 18.5 % (20.5-51.5); MONOCYTES # (AUTO) 0.9 K/uL (0.0-1.0); MONOCYTES % (AUTO) 10.2 % (1.7-9.3); NEUTROPHILS % (AUTO) 66.6 % (40.0-70.0); PLATELET COUNT (AUTO) 250 K/uL (130-430); RED CELL DISTRIBUTION WIDTH 22.5 % (9.0-15.0)
[2018-09-01] MEDS: VANCOMYCIN HCL 1,250 MG in NS 250 ML IV SCH ×2 (10:19→22:34)
[2018-09-01] MEDS: MVI IV SCH (10:27)
[2018-09-01] MEDS: D10W IV SCH (10:27)
[2018-09-01] MEDS: MORPHINE 4 MG/ML INJ. SYRINGE IVP PRN (11:54)
[2018-09-01 12:47] VITALS: BP_SYST 138
[2018-09-01 15:44] VITALS: BP_SYST 120
[2018-09-01] MEDS: MORPHINE SULFATE 30 MG Immediate Release TABLET PO PRN ×2 (15:54→21:13)
[2018-09-01] MEDS: TPN CENTRAL IV SCH ×10 (17:35)
[2018-09-01] MEDS: [UNRECOGNIZED DRUG - OTHER] IV SCH ×10 (17:35)
[2018-09-01] MEDS: SODIUM ACETATE IV SCH ×10 (17:35)
[2018-09-01] MEDS: SODIUM CHLORIDE IV SCH ×10 (17:35)
[2018-09-01] MEDS: FAT EMULSIONS 250 ML IV SCH (17:36)
[2018-09-01 21:11] VITALS: BP_SYST 150
[2018-09-01] MEDS: MIRTAZAPINE 15 MG TABLET PO SCH (21:17)
[2018-09-01] MEDS: HEPARIN 25,000 UNITS in 250 ML PREMIX IV PRN (22:38)
[2018-09-02] MEDS: IPRATROPIUM BROM 0.5 MG/2.5 ML VIAL.NEB (ATROVENT) INH SCH ×5 (00:25→23:39)
[2018-09-02] MEDS: ALBUTEROL SULFATE 0.083% 2.5 MG/3 ML VIAL.NEB INH SCH ×5 (00:25→23:39)
[2018-09-02] MEDS: HYDROcodone/ACETAMIN 10-325 MG TAB PO PRN ×3 (00:28→14:10)
[2018-09-02] MEDS: MORPHINE SULFATE 30 MG Immediate Release TABLET PO PRN ×5 (01:21→22:24)
[2018-09-02 01:43] VITALS: BP_SYST 154
[2018-09-02 06:23] LABS: PHOSPHORUS 3.3 mg/dL (2.7-4.5)
[2018-09-02 07:38] VITALS: BP_SYST 131
[2018-09-02] MEDS: CIPROFLOXACIN LACT 400 MG/D5W 200 ML IV SCH (08:25)
[2018-09-02] MEDS: MULTIVITS,CA,MINERALS/IRON/FA 1 TABLET PO SCH ×2 (08:26→20:55)
[2018-09-02] MEDS: DOCUSATE SODIUM 250 MG CAPSULE PO SCH ×2 (08:27→20:55)
[2018-09-02] MEDS: METOPROLOL TARTRATE 50 MG TABLET PO SCH ×2 (08:27→20:57)
[2018-09-02] MEDS: MEGESTROL ACETATE 400 MG/10 ML UDC PO SCH (08:28)
[2018-09-02] MEDS: SODIUM CHLORIDE 500 MG TABLET PO SCH ×4 (09:17→21:05)
[2018-09-02] MEDS: VANCOMYCIN HCL 1,250 MG in NS 250 ML IV SCH ×2 (10:54→21:04)
[2018-09-02 12:21] VITALS: BP_SYST 129
[2018-09-02 13:37] VITALS: BP_SYST 129
[2018-09-02 16:54] VITALS: BP_SYST 112
[2018-09-02] MEDS: SODIUM ACETATE IV SCH ×10 (17:26)
[2018-09-02] MEDS: [UNRECOGNIZED DRUG - OTHER] IV SCH ×10 (17:26)
[2018-09-02] MEDS: SODIUM CHLORIDE IV SCH ×10 (17:26)
[2018-09-02] MEDS: TPN CENTRAL IV SCH ×10 (17:26)
[2018-09-02] MEDS: FAT EMULSIONS 250 ML IV SCH (17:27)
[2018-09-02] MEDS: MORPHINE 4 MG/ML INJ. SYRINGE IVP PRN (18:27)
[2018-09-02 19:50] VITALS: BP_SYST 125
[2018-09-02] MEDS: MIRTAZAPINE 15 MG TABLET PO SCH (20:55)
[2018-09-03] MEDS: MORPHINE 4 MG/ML INJ. SYRINGE IVP PRN ×2 (00:22→11:21)
[2018-09-03 00:25] VITALS: BP_SYST 134; BP_SYST 95
[2018-09-03] MEDS: HEPARIN 25,000 UNITS in 250 ML PREMIX IV PRN (03:31)
[2018-09-03] MEDS: IPRATROPIUM BROM 0.5 MG/2.5 ML VIAL.NEB (ATROVENT) INH PRN (03:53)
[2018-09-03] MEDS: ALBUTEROL SULFATE 0.083% 2.5 MG/3 ML VIAL.NEB INH PRN (03:53)
[2018-09-03 06:52] LABS: CALCIUM 8.1 mg/dL (8.4-11.0); CREATININE 0.71 mg/dL (0.55-1.30)
[2018-09-03] MEDS: ALBUTEROL SULFATE 0.083% 2.5 MG/3 ML VIAL.NEB INH SCH ×3 (06:53→18:56)
[2018-09-03] MEDS: IPRATROPIUM BROM 0.5 MG/2.5 ML VIAL.NEB (ATROVENT) INH SCH ×3 (06:53→18:56)
[2018-09-03 07:31] VITALS: BP_SYST 141
[2018-09-03] MEDS ORDERED: COMMUNICATION ORDER XX ONE (08:00)
[2018-09-03] MEDS: PROMETHAZINE 6.25 MG/ CODEINE 10 MG/ 5 ML PO PRN ×3 (08:25→21:43)
[2018-09-03] MEDS: DOCUSATE SODIUM 250 MG CAPSULE PO SCH ×2 (09:00→21:34)
[2018-09-03] MEDS: METOPROLOL TARTRATE 50 MG TABLET PO SCH ×2 (09:24→21:34)
[2018-09-03] MEDS: MEGESTROL ACETATE 400 MG/10 ML UDC PO SCH (09:26)
[2018-09-03] MEDS: MULTIVITS,CA,MINERALS/IRON/FA 1 TABLET PO SCH ×2 (09:28→21:33)
[2018-09-03] MEDS: SODIUM CHLORIDE 500 MG TABLET PO SCH ×4 (09:47→21:33)
[2018-09-03] MEDS: MORPHINE SULFATE 30 MG Immediate Release TABLET PO PRN ×2 (09:47→14:38)
[2018-09-03] MEDS: VANCOMYCIN HCL 1,250 MG in NS 250 ML IV SCH ×2 (11:24→21:35)
[2018-09-03 11:46] VITALS: BP_SYST 149
[2018-09-03] MEDS: CIPROFLOXACIN LACT 400 MG/D5W 200 ML IV SCH (12:16)
[2018-09-03] MEDS ORDERED: APIXABAN 2.5 MG TABLET PO ONE (14:00)
[2018-09-03 16:38] VITALS: BP_SYST 144
[2018-09-03] MEDS: HYDROcodone/ACETAMIN 10-325 MG TAB PO PRN ×2 (18:45→23:01)
[2018-09-03 19:49] VITALS: BP_SYST 134
[2018-09-03] MEDS: MIRTAZAPINE 15 MG TABLET PO SCH (21:34)
[2018-09-03] MEDS: APIXABAN 2.5 MG TABLET PO SCH (21:37)
[2018-09-04 00:42] VITALS: BP_SYST 118
[2018-09-04] MEDS: IPRATROPIUM BROM 0.5 MG/2.5 ML VIAL.NEB (ATROVENT) INH SCH ×4 (01:00→19:37)
[2018-09-04] MEDS: ALBUTEROL SULFATE 0.083% 2.5 MG/3 ML VIAL.NEB INH SCH ×4 (01:00→19:36)
[2018-09-04] MEDS: HYDROcodone/ACETAMIN 10-325 MG TAB PO PRN ×2 (03:12→09:27)
[2018-09-04] MEDS: MORPHINE 4 MG/ML INJ. SYRINGE IVP PRN (04:30)
[2018-09-04] MEDS: PROMETHAZINE 6.25 MG/ CODEINE 10 MG/ 5 ML PO PRN (04:31)
[2018-09-04] MEDS: MEGESTROL ACETATE 400 MG/10 ML UDC PO SCH (08:05)
[2018-09-04] MEDS: CIPROFLOXACIN LACT 400 MG/D5W 200 ML IV SCH (08:05)
[2018-09-04] MEDS: MORPHINE SULFATE 30 MG Immediate Release TABLET PO PRN ×3 (08:06→16:58)
[2018-09-04] MEDS: SODIUM CHLORIDE 500 MG TABLET PO SCH ×4 (08:06→20:52)
[2018-09-04] MEDS: MULTIVITS,CA,MINERALS/IRON/FA 1 TABLET PO SCH ×2 (08:07→20:55)
[2018-09-04] MEDS: METOPROLOL TARTRATE 50 MG TABLET PO SCH ×2 (08:07→20:55)
[2018-09-04] MEDS: APIXABAN 2.5 MG TABLET PO SCH ×2 (08:08→20:57)
[2018-09-04] MEDS: DOCUSATE SODIUM 250 MG CAPSULE PO SCH ×2 (08:09→20:52)
[2018-09-04 08:40] VITALS: BP_SYST 133
[2018-09-04] MEDS: VANCOMYCIN HCL 1,250 MG in NS 250 ML IV SCH (10:33)
[2018-09-04] MEDS ORDERED: SUCRALFATE 1 GM TABLET PO ONE (11:45)
[2018-09-04 12:26] VITALS: BP_SYST 140
[2018-09-04] MEDS ORDERED: DOXYCYCLINE HYCLATE 100 MG in D5W 100 ML IV ONE (14:00)
[2018-09-04] MEDS ORDERED: DRONABINOL 2.5 MG CAPSULE PO ONE (14:00)
[2018-09-04 16:02] VITALS: BP_SYST 111
[2018-09-04] MEDS ORDERED: SUCRALFATE 1 GM TABLET PO SCH (17:00)
[2018-09-04 17:27] VITALS: BP_SYST 111
[2018-09-04 20:00] VITALS: BP_SYST 133
[2018-09-04] MEDS: MIRTAZAPINE 15 MG TABLET PO SCH (20:53)
[2018-09-04] MEDS ORDERED: DRONABINOL 2.5 MG CAPSULE PO SCH (21:00)
[2018-09-04] MEDS ORDERED: DOXYCYCLINE HYCLATE 100 MG in D5W 100 ML IV SCH (21:00)
[2018-09-05] MEDS ORDERED: CIPROFLOXACIN LACT 400 MG/D5W 200 ML IV SCH (09:00)
== END 2018-09-04 23:04 | DRG 721 ==
LOC: SED 14:18 → STU 18:42 → SMU 08-22 10:14 → SIC 08-26 11:36 → STU 08-29 16:28 → SMU 09-03 17:49
PROVIDERS: ADMIT Internal Medicine Hospice and Palliative Medicine; ATTEND Internal Medicine Hospice and Palliative Medicine
PROC: 0BPQX0Z Removal of Drainage Device from Pleura, External Approach (ICD-10-PCS; 2018-08-14)
PROC: 0W9B30Z Drainage of Left Pleural Cavity with Drainage Device, Percutaneous Approach (ICD-10-PCS; principal; 2018-08-14 14:00)
PROC: 0W9900Z Drainage of Right Pleural Cavity with Drainage Device, Open Approach (ICD-10-PCS; 2018-08-19)
PROC: 0BC78ZZ Extirpation of Matter from Left Main Bronchus, Via Natural or Artificial Opening Endoscopic (ICD-10-PCS; 2018-08-26)
PROC: 0BNL0ZZ Release Left Lung, Open Approach (ICD-10-PCS; 2018-08-26)
PROC: 0BBP0ZZ Excision of Left Pleura, Open Approach (ICD-10-PCS; 2018-08-26)
PROC: 0JPT3XZ Removal of Tunneled Vascular Access Device from Trunk Subcutaneous Tissue and Fascia, Percutaneous Approach (ICD-10-PCS; 2018-08-26)
PROC: 3E0T3BZ Introduction of Anesthetic Agent into Peripheral Nerves and Plexi, Percutaneous Approach (ICD-10-PCS; 2018-08-26)
PROC: 30233K1 Transfusion of Nonautologous Frozen Plasma into Peripheral Vein, Percutaneous Approach (ICD-10-PCS; 2018-08-26)
PROC: 02HV33Z Insertion of Infusion Device into Superior Vena Cava, Percutaneous Approach (ICD-10-PCS; 2018-08-28)
PROC: 30233N1 Transfusion of Nonautologous Red Blood Cells into Peripheral Vein, Percutaneous Approach (ICD-10-PCS; 2018-08-29)
DX: T85.79XA Infection and inflammatory reaction due to other internal prosthetic devices, implants and grafts, initial encounter (principal); J86.9 Pyothorax without fistula; E43 Unspecified severe protein-calorie malnutrition; J15.0 Pneumonia due to Klebsiella pneumoniae; I82.402 Acute embolism and thrombosis of unspecified deep veins of left lower extremity; J91.0 Malignant pleural effusion; C78.7 Secondary malignant neoplasm of liver and intrahepatic bile duct; C34.90 Malignant neoplasm of unspecified part of unspecified bronchus or lung; D64.9 Anemia, unspecified; T82.7XXA Infection and inflammatory reaction due to other cardiac and vascular devices, implants and grafts, initial encounter; Y83.8 Other surgical procedures as the cause of abnormal reaction of the patient, or of later complication, without mention of misadventure at the time of the procedure; C79.51 Secondary malignant neoplasm of bone; E87.1 Hypo-osmolality and hyponatremia; I10 Essential (primary) hypertension; R74.0 Nonspecific elevation of levels of transaminase and lactic acid dehydrogenase [LDH]; J43.9 Emphysema, unspecified; F32.9 Major depressive disorder, single episode, unspecified; Y92.89 Other specified places as the place of occurrence of the external cause; Z79.01 Long term (current) use of anticoagulants; Z86.718 Personal history of other venous thrombosis and embolism; Z68.24 Body mass index [BMI] 24.0-24.9, adult
CPT/HCPCS: 36415; 36600; 71045; 71250-TC; 80048; 80053; 80150; 80202-TC; 81000-TC; 82550-TC; 82803-TC; 82962; 83540-TC; 83550-TC; 83605; 83735-TC; 83880; 84100-TC; 84478-TC; 84484; 85025; 85610-TC; 85730-TC; 86886; 86900; 86901; 86920; 87040-TC; 87070-TC; 87075-TC; 87081; 87086; 87101; 87116; 87186-TC; 87205-TC; 88108; 88305; 88341; 88342; 93005; 94010; 94640; 94760; 97110-GP; 97116-GP; 97530-GP; 99285; C1727; C1750; C1751; G0378; J0278; J0610; J0744; J1644; J1756; J1956; J2250; J2270; J2274; J2405; J2543; J2704; J3370; J3430; J3475; J3480; J3490; J7030; J7040; J7042; J7050; J7060; J7131; J7613; P9021; P9041; P9059; Q0167

== ENCOUNTER 2018-09-05 15:52 | Inpatient (IN) | payer OTHER ==
[~2018-09-05] VITALS: Ht 180.3 cm; Wt 76.7 kg
[2018-09-05 15:55] VITALS: BP_SYST 131
[2018-09-05] MEDS ORDERED: MORPHINE 4 MG/ML INJ. SYRINGE IVP ONE (16:30)
[2018-09-05 16:53] LABS: HEMATOCRIT 34.2 % (36-54); HEMOGLOBIN 11.2 g/dL (14.0-18.0); MEAN CORPUSCULAR HEMOGLOBIN 27 pg (27-31); MEAN CORPUSCULAR HGB CONC 33 % (32-36); MEAN CORPUSCULAR VOLUME 82 fL (79.0-98.0); RED BLOOD CELL COUNT(AUTO) 4.16 MIL/uL (4.2-6.2); WHITE BLOOD COUNT (AUTO) 9.2 K/uL (4.8-10.8)
[2018-09-05 16:54] LABS: BASOPHILS # (AUTO) 0.1 K/uL (0.0-0.2); BASOPHILS % (AUTO) 1.2 % (0.0-2.0); EOSINOPHILS # (AUTO) 0.2 K/uL (0.0-0.4); LYMPHOCYTES # (AUTO) 1.2 K/uL (1.0-5.5); MONOCYTES # (AUTO) 0.7 K/uL (0.0-1.0); MONOCYTES % (AUTO) 7.1 % (1.7-9.3); NEUTROPHILS % (AUTO) 76.7 % (40.0-70.0); PLATELET COUNT (AUTO) 292 K/uL (130-430); RED CELL DISTRIBUTION WIDTH 21.9 % (9.0-15.0)
[2018-09-05 16:55] LABS: CALCIUM 8.6 mg/dL (8.4-11.0); CREATININE 0.97 mg/dL (0.55-1.30); POTASSIUM 4.8 mmol/L (3.5-5.1)
[2018-09-05 17:01] LABS: ALBUMIN 1.8 g/dL (3.4-4.8); TOTAL BILIRUBIN 0.5 mg/dL (0.0-1.0)
[2018-09-05 17:38] LABS: BILIRUBIN,URINE NEGATIVE (NEGATIVE); BLOOD, URINE NEGATIVE (NEGATIVE); CLARITY/URINE CLEAR (CLEAR); COLOR,URINE YELLOW (YELLOW); GLUCOSE,URINE NEGATIVE (NEGATIVE); KETONES,URINE NEGATIVE (NEGATIVE); LEUKOCYTE ESTERASE ,URINE NEGATIVE (NEGATIVE); NITRITE, URINE NEGATIVE (NEGATIVE); PROTEIN URINE NEGATIVE (NEGATIVE); UROBILINOGEN,URINE 0.2 (0.2-1.0)
[2018-09-05 20:00] VITALS: BP_SYST 149
[2018-09-05] MEDS ORDERED: ONDANSETRON HCL 4 MG/2 ML VIAL IVP PRN (22:15)
[2018-09-05] MEDS ORDERED: ACETAMINOPHEN 325 MG TABLET PO PRN (22:15)
[2018-09-05] MEDS ORDERED: HYDROcodone/ACETAMIN 5-325 MG TAB (NORCO/ VICODIN) PO PRN (22:15)
[2018-09-06] VITALS (7 sets, daily range): BP systolic 119–140
[2018-09-06] MEDS: IPRATROPIUM/ALBUTEROL SULFATE 3 ML AMPUL.NEB (DUONEB) INH SCH ×5 (00:55→23:39)
[2018-09-06] MEDS: HYDROcodone/ACETAMIN 10-325 MG TAB PO PRN ×2 (04:05→11:16)
[2018-09-06] MEDS: METOPROLOL TARTRATE 25 MG TABLET PO SCH ×2 (08:22→20:56)
[2018-09-06] MEDS: FAMOTIDINE 20 MG TABLET PO SCH (08:22)
[2018-09-06] MEDS: DOCUSATE SODIUM 100 MG CAPSULE PO SCH ×2 (08:23→20:58)
[2018-09-06] MEDS: FERROUS SULFATE 325 MG TABLET.DR PO SCH (08:23)
[2018-09-06] MEDS ORDERED: MORPHINE 4 MG/ML INJ. SYRINGE IVP PRN ×2 (08:30→15:00)
[2018-09-06] MEDS: CIPROFLOXACIN LACT 400 MG/D5W 200 ML IV SCH (08:54)
[2018-09-06] MEDS: MORPHINE 4 MG/ML INJ. SYRINGE IVP PRN ×2 (12:41→20:58)
[2018-09-06] MEDS: SUCRALFATE 1 GM/10 ML UDC GT SCH (17:48)
[2018-09-06] MEDS: APIXABAN 2.5 MG TABLET PO SCH (20:57)
[2018-09-06] MEDS: MIRTAZAPINE 15 MG TABLET PO SCH (21:00)
[2018-09-07] MEDS: HYDROcodone/ACETAMIN 10-325 MG TAB PO PRN ×2 (02:06→11:29)
[2018-09-07] MEDS: SUCRALFATE 1 GM/10 ML UDC GT SCH ×2 (05:58→17:10)
[2018-09-07] MEDS: IPRATROPIUM/ALBUTEROL SULFATE 3 ML AMPUL.NEB (DUONEB) INH SCH ×3 (07:24→20:33)
[2018-09-07 07:35] VITALS: BP_SYST 124
[2018-09-07] MEDS: MORPHINE 4 MG/ML INJ. SYRINGE IVP PRN ×4 (07:40→22:55)
[2018-09-07] MEDS ORDERED: DIATR MEGLU/DIATRIZ SOD 30 ML SOLUTION PO ONE (08:58)
[2018-09-07] MEDS: DOCUSATE SODIUM 100 MG CAPSULE PO SCH ×2 (09:00→20:29)
[2018-09-07] MEDS: CIPROFLOXACIN LACT 400 MG/D5W 200 ML IV SCH (09:25)
[2018-09-07] MEDS: FERROUS SULFATE 325 MG TABLET.DR PO SCH (09:25)
[2018-09-07] MEDS: METOPROLOL TARTRATE 25 MG TABLET PO SCH ×2 (09:25→20:30)
[2018-09-07] MEDS: FAMOTIDINE 20 MG TABLET PO SCH (09:25)
[2018-09-07] MEDS: APIXABAN 2.5 MG TABLET PO SCH ×2 (09:29→20:29)
[2018-09-07 09:53] LABS: HEMATOCRIT 31.3 % (36-54); HEMOGLOBIN 10.1 g/dL (14.0-18.0); MEAN CORPUSCULAR HEMOGLOBIN 27 pg (27-31); MEAN CORPUSCULAR HGB CONC 32 % (32-36); MEAN CORPUSCULAR VOLUME 83 fL (79.0-98.0); PLATELET COUNT (AUTO) 255 K/uL (130-430); RED BLOOD CELL COUNT(AUTO) 3.79 MIL/uL (4.2-6.2); RED CELL DISTRIBUTION WIDTH 21.6 % (9.0-15.0); WHITE BLOOD COUNT (AUTO) 8.8 K/uL (4.8-10.8)
[2018-09-07 09:54] LABS: BASOPHILS # (AUTO) 0.1 K/uL (0.0-0.2); BASOPHILS % (AUTO) 0.9 % (0.0-2.0); EOSINOPHILS # (AUTO) 0.2 K/uL (0.0-0.4); EOSINOPHILS % (AUTO) 1.7 % (0.0-4.0); LYMPHOCYTES # (AUTO) 1.3 K/uL (1.0-5.5); LYMPHOCYTES % (AUTO) 14.9 % (20.5-51.5); MONOCYTES # (AUTO) 0.7 K/uL (0.0-1.0); MONOCYTES % (AUTO) 8.5 % (1.7-9.3); NEUTROPHILS # (AUTO) 6.5 K/uL (1.8-7.7)
[2018-09-07 10:34] LABS: TOTAL IRON BIND. CAPACITY 138 ug/dL (250-450)
[2018-09-07] MEDS ORDERED: IOHEXOL 100 ML IV ONE (11:15)
[2018-09-07] MEDS: PROMETHAZINE-DM 6.25 MG-15 MG/5 ML UDC PO PRN (11:28)
[2018-09-07 12:20] VITALS: BP_SYST 131
[2018-09-07 16:59] VITALS: BP_SYST 140
[2018-09-07 19:15] VITALS: BP_SYST 124
[2018-09-07] MEDS: MIRTAZAPINE 15 MG TABLET PO SCH (20:29)
[2018-09-08 00:14] VITALS: BP_SYST 138
[2018-09-08] MEDS: IPRATROPIUM/ALBUTEROL SULFATE 3 ML AMPUL.NEB (DUONEB) INH SCH ×4 (01:53→19:41)
[2018-09-08] MEDS: MORPHINE 4 MG/ML INJ. SYRINGE IVP PRN ×4 (03:18→15:14)
[2018-09-08] MEDS: SUCRALFATE 1 GM/10 ML UDC GT SCH (06:17)
[2018-09-08] MEDS: HYDROcodone/ACETAMIN 10-325 MG TAB PO PRN ×2 (06:19→16:50)
[2018-09-08 08:00] VITALS: BP_SYST 147
[2018-09-08] MEDS: FERROUS SULFATE 325 MG TABLET.DR PO SCH (08:10)
[2018-09-08] MEDS: CIPROFLOXACIN LACT 400 MG/D5W 200 ML IV SCH (08:10)
[2018-09-08] MEDS: METOPROLOL TARTRATE 25 MG TABLET PO SCH ×2 (08:10→20:24)
[2018-09-08] MEDS: FAMOTIDINE 20 MG TABLET PO SCH (08:10)
[2018-09-08] MEDS: APIXABAN 2.5 MG TABLET PO SCH ×2 (08:11→20:26)
[2018-09-08] MEDS: DOCUSATE SODIUM 100 MG CAPSULE PO SCH ×2 (08:13→20:21)
[2018-09-08] MEDS: PROMETHAZINE-DM 6.25 MG-15 MG/5 ML UDC PO PRN (08:13)
[2018-09-08 08:54] LABS: HEMOGLOBIN 9.6 g/dL (14.0-18.0); RED BLOOD CELL COUNT(AUTO) 3.59 MIL/uL (4.2-6.2); WHITE BLOOD COUNT (AUTO) 9.1 K/uL (4.8-10.8)
[2018-09-08 08:55] LABS: BASOPHILS # (AUTO) 0.1 K/uL (0.0-0.2); BASOPHILS % (AUTO) 0.6 % (0.0-2.0); EOSINOPHILS # (AUTO) 0.2 K/uL (0.0-0.4); EOSINOPHILS % (AUTO) 1.8 % (0.0-4.0); HEMATOCRIT 29.4 % (36-54); LYMPHOCYTES # (AUTO) 0.9 K/uL (1.0-5.5); LYMPHOCYTES % (AUTO) 9.6 % (20.5-51.5); MEAN CORPUSCULAR HEMOGLOBIN 27 pg (27-31); MEAN CORPUSCULAR HGB CONC 33 % (32-36); MEAN CORPUSCULAR VOLUME 82 fL (79.0-98.0); MONOCYTES # (AUTO) 0.8 K/uL (0.0-1.0); MONOCYTES % (AUTO) 9.2 % (1.7-9.3); NEUTROPHILS # (AUTO) 7.2 K/uL (1.8-7.7); NEUTROPHILS % (AUTO) 78.8 % (40.0-70.0); PLATELET COUNT (AUTO) 194 K/uL (130-430); RED CELL DISTRIBUTION WIDTH 21.2 % (9.0-15.0)
[2018-09-08 11:15] VITALS: BP_SYST 133
[2018-09-08 12:14] VITALS: BP_SYST 140
[2018-09-08] MEDS ORDERED: SUCRALFATE 1 GM/10 ML UDC PO SCH ×2 (14:56→14:57)
[2018-09-08 16:15] VITALS: BP_SYST 140
[2018-09-08] MEDS: SUCRALFATE 1 GM/10 ML UDC PO SCH (16:32)
[2018-09-08] MEDS ORDERED: HYDROmorphone 1 MG INJ. 1 MG/ML AMPUL IVP PRN ×2 (17:30)
[2018-09-08] MEDS: POTASSIUM CHLORIDE 10 MEQ in D5NS 1,000 ML IV SCH (17:42)
[2018-09-08] MEDS: HYDROmorphone 2 MG/ML VIAL IVP PRN ×2 (18:16→22:48)
[2018-09-08 19:15] VITALS: BP_SYST 128
[2018-09-08] MEDS: MIRTAZAPINE 15 MG TABLET PO SCH (20:22)
[2018-09-09 00:36] VITALS: BP_SYST 129
[2018-09-09] MEDS: IPRATROPIUM/ALBUTEROL SULFATE 3 ML AMPUL.NEB (DUONEB) INH SCH ×4 (01:02→19:27)
[2018-09-09] MEDS: POTASSIUM CHLORIDE 10 MEQ in D5NS 1,000 ML IV SCH ×3 (03:08→21:48)
[2018-09-09] MEDS: SUCRALFATE 1 GM/10 ML UDC PO SCH ×2 (06:28→16:13)
[2018-09-09] MEDS: HYDROmorphone 2 MG/ML VIAL IVP PRN ×2 (06:30→12:22)
[2018-09-09 06:50] LABS: CALCIUM 8.3 mg/dL (8.4-11.0); CREATININE 0.77 mg/dL (0.55-1.30); POTASSIUM 3.9 mmol/L (3.5-5.1)
[2018-09-09] MEDS ORDERED: MORPHINE SULFATE 15 MG TABLET.ER PO ONE (07:45)
[2018-09-09] MEDS ORDERED: PAMIDRONATE DISODIUM 90 MG in NS 500 ML IV ONE (07:45)
[2018-09-09] MEDS: FAMOTIDINE 20 MG TABLET PO SCH (08:06)
[2018-09-09] MEDS: DOCUSATE SODIUM 100 MG CAPSULE PO SCH ×3 (08:06→21:00)
[2018-09-09] MEDS: METOPROLOL TARTRATE 25 MG TABLET PO SCH ×2 (08:06→21:49)
[2018-09-09] MEDS: FERROUS SULFATE 325 MG TABLET.DR PO SCH (08:06)
[2018-09-09] MEDS: CIPROFLOXACIN LACT 400 MG/D5W 200 ML IV SCH (08:07)
[2018-09-09] MEDS: APIXABAN 2.5 MG TABLET PO SCH ×2 (08:08→21:00)
[2018-09-09 08:09] VITALS: BP_SYST 127
[2018-09-09 08:23] LABS: HEMATOCRIT 28.4 % (36-54); HEMOGLOBIN 9.4 g/dL (14.0-18.0); MEAN CORPUSCULAR VOLUME 82 fL (79.0-98.0); RED BLOOD CELL COUNT(AUTO) 3.45 MIL/uL (4.2-6.2); WHITE BLOOD COUNT (AUTO) 9.7 K/uL (4.8-10.8)
[2018-09-09 08:24] LABS: BASOPHILS # (AUTO) 0.1 K/uL (0.0-0.2); BASOPHILS % (AUTO) 0.6 % (0.0-2.0); EOSINOPHILS # (AUTO) 0.2 K/uL (0.0-0.4); EOSINOPHILS % (AUTO) 1.9 % (0.0-4.0); LYMPHOCYTES # (AUTO) 0.8 K/uL (1.0-5.5); LYMPHOCYTES % (AUTO) 8.8 % (20.5-51.5); MEAN CORPUSCULAR HEMOGLOBIN 27 pg (27-31); MEAN CORPUSCULAR HGB CONC 33 % (32-36); MONOCYTES # (AUTO) 0.7 K/uL (0.0-1.0); MONOCYTES % (AUTO) 7.2 % (1.7-9.3); NEUTROPHILS # (AUTO) 7.9 K/uL (1.8-7.7); NEUTROPHILS % (AUTO) 81.5 % (40.0-70.0); PLATELET COUNT (AUTO) 165 K/uL (130-430); RED CELL DISTRIBUTION WIDTH 20.9 % (9.0-15.0)
[2018-09-09 12:28] VITALS: BP_SYST 141
[2018-09-09] MEDS: MORPHINE SULFATE 15 MG TABLET.ER PO SCH ×2 (14:49→21:50)
[2018-09-09 16:59] VITALS: BP_SYST 129
[2018-09-09 20:00] VITALS: BP_SYST 136
[2018-09-09] MEDS: MIRTAZAPINE 15 MG TABLET PO SCH (21:48)
[2018-09-10] VITALS (8 sets, daily range): BP systolic 127–144
[2018-09-10] MEDS: IPRATROPIUM/ALBUTEROL SULFATE 3 ML AMPUL.NEB (DUONEB) INH SCH ×4 (00:35→19:22)
[2018-09-10] MEDS: HYDROmorphone 2 MG/ML VIAL IVP PRN ×3 (02:21→20:31)
[2018-09-10 04:30] LABS: FOLATE (FOLIC ACID) >20.0 ng/mL (>3.0)
[2018-09-10] MEDS: SUCRALFATE 1 GM/10 ML UDC PO SCH ×2 (06:42→17:12)
[2018-09-10] MEDS: MORPHINE SULFATE 15 MG TABLET.ER PO SCH ×3 (06:43→21:33)
[2018-09-10 06:55] LABS: BASOPHILS # (AUTO) 0.1 K/uL (0.0-0.2); BASOPHILS % (AUTO) 0.7 % (0.0-2.0); EOSINOPHILS # (AUTO) 0.1 K/uL (0.0-0.4); EOSINOPHILS % (AUTO) 0.8 % (0.0-4.0); HEMATOCRIT 31.1 % (36-54); LYMPHOCYTES # (AUTO) 1.4 K/uL (1.0-5.5); LYMPHOCYTES % (AUTO) 12.8 % (20.5-51.5); MEAN CORPUSCULAR HEMOGLOBIN 27 pg (27-31); MEAN CORPUSCULAR HGB CONC 32 % (32-36); MEAN CORPUSCULAR VOLUME 82 fL (79.0-98.0); MONOCYTES % (AUTO) 9.1 % (1.7-9.3); NEUTROPHILS # (AUTO) 8.6 K/uL (1.8-7.7); NEUTROPHILS % (AUTO) 76.6 % (40.0-70.0); PLATELET COUNT (AUTO) 160 K/uL (130-430); RED BLOOD CELL COUNT(AUTO) 3.77 MIL/uL (4.2-6.2); WHITE BLOOD COUNT (AUTO) 11.2 K/uL (4.8-10.8)
[2018-09-10] MEDS: CIPROFLOXACIN LACT 400 MG/D5W 200 ML IV SCH (09:08)
[2018-09-10] MEDS: POLYETHYLENE GLYCOL 3350, 17 GM/ POWD.PACK PO SCH ×2 (09:08→21:33)
[2018-09-10] MEDS: FERROUS SULFATE 325 MG TABLET.DR PO SCH (09:08)
[2018-09-10] MEDS: FAMOTIDINE 20 MG TABLET PO SCH (09:09)
[2018-09-10] MEDS: DOCUSATE SODIUM 100 MG CAPSULE PO SCH ×2 (09:10→21:32)
[2018-09-10] MEDS: METOPROLOL TARTRATE 25 MG TABLET PO SCH ×2 (09:10→21:36)
[2018-09-10 10:07] LABS: CARBOHYDRATE AG 19-9 160 U/mL (0-35); CEA 239.4 ng/mL (0.0-4.7)
[2018-09-10] MEDS: POTASSIUM CHLORIDE 10 MEQ in D5NS 1,000 ML IV SCH ×2 (11:32→20:34)
[2018-09-10] MEDS: METOCLOPRAMIDE HCL 10 MG/2 ML VIAL IVP PRN (20:31)
[2018-09-10] MEDS: MIRTAZAPINE 15 MG TABLET PO SCH (21:34)
[2018-09-11 00:10] VITALS: BP_SYST 136
[2018-09-11] MEDS: IPRATROPIUM/ALBUTEROL SULFATE 3 ML AMPUL.NEB (DUONEB) INH SCH ×4 (01:03→19:41)
[2018-09-11] MEDS: POTASSIUM CHLORIDE 10 MEQ in D5NS 1,000 ML IV SCH ×3 (06:01→21:26)
[2018-09-11] MEDS: MORPHINE SULFATE 15 MG TABLET.ER PO SCH ×3 (06:02→21:20)
[2018-09-11] MEDS: SUCRALFATE 1 GM/10 ML UDC PO SCH ×2 (06:02→16:02)
[2018-09-11] MEDS: HYDROmorphone 2 MG/ML VIAL IVP PRN ×3 (06:03→13:07)
[2018-09-11] MEDS ORDERED: MAGNESIUM CITRATE 300 ML ORAL SOLUTION PO ONE (07:15)
[2018-09-11 08:08] VITALS: BP_SYST 180
[2018-09-11] MEDS: FAMOTIDINE 20 MG TABLET PO SCH (08:42)
[2018-09-11] MEDS: FERROUS SULFATE 325 MG TABLET.DR PO SCH (08:42)
[2018-09-11] MEDS: DOCUSATE SODIUM 100 MG CAPSULE PO SCH ×2 (08:42→21:19)
[2018-09-11] MEDS: METOPROLOL TARTRATE 25 MG TABLET PO SCH ×2 (08:43→21:20)
[2018-09-11] MEDS: POLYETHYLENE GLYCOL 3350, 17 GM/ POWD.PACK PO SCH ×2 (08:45→21:19)
[2018-09-11] MEDS: CIPROFLOXACIN LACT 400 MG/D5W 200 ML IV SCH (08:46)
[2018-09-11] MEDS: ENOXAPARIN SODIUM 40 MG/0.4 ML SYRINGE SUBCUT SCH (08:49)
[2018-09-11 11:29] VITALS: BP_SYST 150
[2018-09-11 15:54] VITALS: BP_SYST 129
[2018-09-11 20:28] VITALS: BP_SYST 122
[2018-09-11] MEDS: MIRTAZAPINE 15 MG TABLET PO SCH (21:21)
[2018-09-12] MEDS: HYDROmorphone 2 MG/ML VIAL IVP PRN ×4 (00:09→20:15)
[2018-09-12] MEDS: METOCLOPRAMIDE HCL 10 MG/2 ML VIAL IVP PRN (00:09)
[2018-09-12 00:16] VITALS: BP_SYST 142
[2018-09-12] MEDS: IPRATROPIUM/ALBUTEROL SULFATE 3 ML AMPUL.NEB (DUONEB) INH SCH ×4 (00:17→20:35)
[2018-09-12] MEDS: SUCRALFATE 1 GM/10 ML UDC PO SCH ×2 (06:45→16:30)
[2018-09-12] MEDS: POTASSIUM CHLORIDE 10 MEQ in D5NS 1,000 ML IV SCH ×2 (06:45→22:32)
[2018-09-12] MEDS: MORPHINE SULFATE 15 MG TABLET.ER PO SCH ×3 (06:45→22:32)
[2018-09-12 07:20] VITALS: BP_SYST 144
[2018-09-12] MEDS: POLYETHYLENE GLYCOL 3350, 17 GM/ POWD.PACK PO SCH ×2 (08:48→20:22)
[2018-09-12] MEDS: DOCUSATE SODIUM 100 MG CAPSULE PO SCH ×2 (08:48→20:21)
[2018-09-12] MEDS: METOPROLOL TARTRATE 25 MG TABLET PO SCH ×2 (08:50→20:26)
[2018-09-12] MEDS: FAMOTIDINE 20 MG TABLET PO SCH (08:50)
[2018-09-12] MEDS: FERROUS SULFATE 325 MG TABLET.DR PO SCH (08:50)
[2018-09-12] MEDS: ENOXAPARIN SODIUM 40 MG/0.4 ML SYRINGE SUBCUT SCH (08:51)
[2018-09-12] MEDS: CIPROFLOXACIN LACT 400 MG/D5W 200 ML IV SCH (08:53)
[2018-09-12 11:05] VITALS: BP_SYST 142
[2018-09-12 16:00] VITALS: BP_SYST 134
[2018-09-12 20:00] VITALS: BP_SYST 138
[2018-09-12] MEDS: MIRTAZAPINE 15 MG TABLET PO SCH (20:21)
[2018-09-13] MEDS: HYDROmorphone 2 MG/ML VIAL IVP PRN ×3 (00:06→15:45)
[2018-09-13 01:16] VITALS: BP_SYST 121
[2018-09-13] MEDS: IPRATROPIUM/ALBUTEROL SULFATE 3 ML AMPUL.NEB (DUONEB) INH SCH ×2 (01:42→13:57)
[2018-09-13 06:50] LABS: BASOPHILS # (AUTO) 0.1 K/uL (0.0-0.2); BASOPHILS % (AUTO) 0.8 % (0.0-2.0); EOSINOPHILS # (AUTO) 0.2 K/uL (0.0-0.4); EOSINOPHILS % (AUTO) 1.4 % (0.0-4.0); HEMATOCRIT 31.4 % (36-54); HEMOGLOBIN 10.1 g/dL (14.0-18.0); LYMPHOCYTES # (AUTO) 1.3 K/uL (1.0-5.5); LYMPHOCYTES % (AUTO) 8.6 % (20.5-51.5); MEAN CORPUSCULAR HEMOGLOBIN 27 pg (27-31); MEAN CORPUSCULAR HGB CONC 32 % (32-36); MEAN CORPUSCULAR VOLUME 82 fL (79.0-98.0); MONOCYTES # (AUTO) 1.5 K/uL (0.0-1.0); MONOCYTES % (AUTO) 10.3 % (1.7-9.3); NEUTROPHILS # (AUTO) 11.7 K/uL (1.8-7.7); NEUTROPHILS % (AUTO) 78.9 % (40.0-70.0); PLATELET COUNT (AUTO) 132 K/uL (130-430); RED BLOOD CELL COUNT(AUTO) 3.81 MIL/uL (4.2-6.2); RED CELL DISTRIBUTION WIDTH 20.9 % (9.0-15.0); WHITE BLOOD COUNT (AUTO) 14.8 K/uL (4.8-10.8)
[2018-09-13 06:52] LABS: INR 1.3 (0.80-1.20); PROTHROMBIN TIME 13.3 SECS (9.5-12.5)
[2018-09-13] MEDS: SUCRALFATE 1 GM/10 ML UDC PO SCH ×2 (07:00→17:00)
[2018-09-13 08:00] VITALS: BP_SYST 142
[2018-09-13] MEDS: FAMOTIDINE 20 MG TABLET PO SCH (09:53)
[2018-09-13] MEDS: DOCUSATE SODIUM 100 MG CAPSULE PO SCH (09:53)
[2018-09-13] MEDS: FERROUS SULFATE 325 MG TABLET.DR PO SCH (09:53)
[2018-09-13] MEDS: POLYETHYLENE GLYCOL 3350, 17 GM/ POWD.PACK PO SCH (09:54)
[2018-09-13] MEDS: METOPROLOL TARTRATE 25 MG TABLET PO SCH (09:54)
[2018-09-13] MEDS: POTASSIUM CHLORIDE 10 MEQ in D5NS 1,000 ML IV SCH (09:55)
[2018-09-13] MEDS: ENOXAPARIN SODIUM 40 MG/0.4 ML SYRINGE SUBCUT SCH (09:56)
[2018-09-13 12:00] VITALS: BP_SYST 91
[2018-09-13] MEDS: MORPHINE SULFATE 15 MG TABLET.ER PO SCH (13:16)
[2018-09-13 14:02] VITALS: BP_SYST 142
[2018-09-13 16:20] VITALS: BP_SYST 128
[2018-09-13] MEDS ORDERED: MORPHINE 4 MG/ML INJ. SYRINGE IVP PRN (17:15)
[2018-09-13 17:51] VITALS: BP_SYST 128
== END 2018-09-13 17:50 | DRG 198 ==
LOC: SED 15:52 → STU 19:10
PROVIDERS: ADMIT Internal Medicine; ATTEND Internal Medicine
DX: I24.8 Other forms of acute ischemic heart disease (principal); J86.9 Pyothorax without fistula; E43 Unspecified severe protein-calorie malnutrition; J15.0 Pneumonia due to Klebsiella pneumoniae; J90 Pleural effusion, not elsewhere classified; K63.3 Ulcer of intestine; C34.90 Malignant neoplasm of unspecified part of unspecified bronchus or lung; D63.8 Anemia in other chronic diseases classified elsewhere; C78.7 Secondary malignant neoplasm of liver and intrahepatic bile duct; C79.51 Secondary malignant neoplasm of bone; F32.9 Major depressive disorder, single episode, unspecified; I10 Essential (primary) hypertension; R74.0 Nonspecific elevation of levels of transaminase and lactic acid dehydrogenase [LDH]; E87.1 Hypo-osmolality and hyponatremia; G89.3 Neoplasm related pain (acute) (chronic); K56.41 Fecal impaction; Z82.3 Family history of stroke; Z86.718 Personal history of other venous thrombosis and embolism; Z79.899 Other long term (current) drug therapy; Z68.23 Body mass index [BMI] 23.0-23.9, adult
CPT/HCPCS: 36415; 71045; 71260-TC; 76604; 78306; 80048; 80053; 81003; 82272; 82378; 82607; 82746; 83540-TC; 83550-TC; 83605; 83735-TC; 84484; 85025; 85610-TC; 85730-TC; 86301; 87040-TC; 87081; 87086; 93005; 94640; 94760; 96374; A9503; G0378; J0744; J1170; J1650; J2270; J2405; J2430; J2765; J3480; J7040; J7042; J7620; Q9964; Q9967